=== PATIENT | female | born 1990 | race Hispanic/Latino ===

== ENCOUNTER 2021-12-20 22:39 | Emergency (ER) | payer OTHER, SELFPAY ==
[2021-12-20 23:47] LABS: Absolute Lymphocytes (CBC) 0.9 K/uL (0.7-4.9); Hematocrit 38.7 % (36.0-45.0); Lymphocytes % 12.6 % (15.3-44.8); MPV 8.7 fL (7.6-11.3); RBC Red Blood Cell Count 4.73 M/uL (3.86-4.86)
[2021-12-21 00:03] LABS: Albumin 3.6 g/dL (3.4-5.0); Bilirubin Total 0.6 mg/dL (0.2-1.0); Potassium 3.3 mmol/L (3.5-5.1); Protein, Total 8.2 g/dL (6.4-8.2)
[2021-12-21 00:04] LABS: Urine Blood 1+ (Negative); Urine Glucose Negative (Negative); Urine Protein 1+ (Negative); Urine Specific Gravity >=1.030 (1.005-1.030)
[2021-12-21] MEDS ORDERED: KETOROLAC 30 MG/ML INJ ONE (00:27)
[2021-12-21] MEDS ORDERED: FAMOTIDINE 20 MG/2 ML VIAL IV ONE (00:28)
[2021-12-21] MEDS ORDERED: NA CHLORIDE 0.9% 1,000 ML ONE (00:28)
[2021-12-21] MEDS ORDERED: ONDANSETRON 4 MG/2 ML VIAL ONE (00:28)
[2021-12-21 00:33] LABS: Urine Specific Gravity/Preg 1.025 (1.005-1.030)
--- NOTE | 2021-12-21 03:02 | EDPHYS ---
Physician Documentation [facility] Name: Deniz Rivers Age: 31 yrs Sex: Female : 1990 Arrival Date: 12/20/2021 Time: 22:42 Bed 19 Private MD: ED Physician Viet Robles HPI: 12/21 04:45 This 31 yrs old Female presents to ER via Ambulatory with complaints of kdr Abdominal Pain, Vomiting. 04:45 The patient presents to the emergency department with nausea, that is mild, vomiting, kdr that is intermittent, diarrhea, that is intermittent, abdominal pain, of the posterior aspect of right lateral abdomen, posterior aspect of left lateral abdomen, right lower quadrant and left lower quadrant. Onset: The symptoms/episode began/occurred 3 day(s) ago. Possible causes: unknown. Associated signs and symptoms: Pertinent positives: abdominal pain, diarrhea, nausea, vomiting. Severity of symptoms: At their worst the symptoms were mild moderate just prior to arrival, in the emergency department the symptoms are unchanged. The patient has not experienced similar symptoms in the past. The patient has not recently seen a physician. Patient states that she has been ill for the past couple of days with vomiting and diarrhea. She now feels that she is dehydrated.. 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 - Social history:: Smoking status: Patient denies any tobacco usage or history of. Patient/guardian denies using alcohol, street drugs. ROS: 12/21 04:47 Constitutional: Negative for fever, chills, and weight loss, Eyes: Negative for injury, kdr pain, redness, and discharge, ENT: Negative for injury, pain, and discharge, Neck: Negative for injury, pain, and swelling, Cardiovascular: Negative for chest pain, palpitations, and edema, Respiratory: Negative for shortness of breath, cough, wheezing, and pleuritic chest pain, Back: Negative for injury and pain, : Negative for injury, bleeding, discharge, and swelling, MS/Extremity: Negative for injury and deformity, Skin: Negative for injury, rash, and discoloration, Neuro: Negative for headache, weakness, numbness, tingling, and seizure activity. Psych: Negative for depression, anxiety, suicide ideation, homicidal ideation, and hallucinations, Allergy/Immunology: Negative for hives, rash, and allergies, Endocrine: Negative for neck swelling, polydipsia, polyuria, polyphagia, and marked weight changes, Hematologic/Lymphatic: Negative for swollen nodes, abnormal bleeding, and unusual bruising. Exam: 04:47 Constitutional: This is a well developed, well nourished patient who is awake, alert, kdr and in no acute distress. Head/Face: Normocephalic, atraumatic. Eyes: Pupils equal round and reactive to light, extra-ocular motions intact. Lids and lashes normal. Conjunctiva and sclera are non-icteric and not injected. Cornea within normal limits. Periorbital areas with no swelling, redness, or edema. Neck: Trachea midline, no thyromegaly or masses palpated, and no cervical lymphadenopathy. Supple, full range of motion without nuchal rigidity, or vertebral point tenderness. No Meningismus. Chest/axilla: Normal chest wall appearance and motion. Nontender with no deformity. No lesions are appreciated. Cardiovascular: Regular rate and rhythm with a normal S1 and S2. No gallops, murmurs, or rubs. Normal PMI, no JVD. No pulse deficits. Respiratory: Lungs have equal breath sounds bilaterally, clear to auscultation and percussion. No rales, rhonchi or wheezes noted. No increased work of breathing, no retractions or nasal flaring. Back: No spinal tenderness. No costovertebral tenderness. Full range of motion. Skin: Warm, dry with normal turgor. Normal color with no rashes, no lesions, and no evidence of cellulitis. MS/ Extremity: Pulses equal, no cyanosis. Neurovascular intact. Full, normal range of motion. Neuro: Awake and alert, GCS 15, oriented to person, place, time, and situation. Cranial nerves II-XII grossly intact. Motor strength 5/5 in all extremities. Sensory grossly intact. Cerebellar exam normal. Normal gait. Psych: Awake, alert, with orientation to person, place and time. Behavior, mood, and affect are within normal limits. 04:47 Abdomen/GI: Inspection: obese Bowel sounds: active, all quadrants, Palpation: mild abdominal tenderness. Vital Signs: 12/20 23:01 BP 131 / 75; Pulse 113; Resp 16; Temp 99.3(O); Pulse Ox 100% on R/A; Weight 86.18 kg jb4 (R); Height 5 ft. 3 in. (160.02 cm) (R); Pain 5/10; 12/21 01:21 BP 129 / 57; Pulse 82; Resp 16; Pulse Ox 99% on R/A; kd3 01:38 Pulse 82; Resp 16; Pulse Ox 100% on R/A; kd3 03:14 BP 128 / 65; Pulse 81; Resp 17; Pulse Ox 98% on R/A; kd3 12/20 23:01 Body Mass Index 33.66 (86.18 kg, 160.02 cm) jb4 MDM: 03:01 Patient medically screened. kdr 04:47 Data reviewed: vital signs, nurses notes, lab test result(s). Counseling: I had a kdr detailed discussion with the patient and/or guardian regarding: the historical points, exam findings, and any diagnostic results supporting the discharge/admit diagnosis, lab results, the need for outpatient follow up. 12/20 23:28 Order name: CBC with Diff; Complete Time: 00:15 kdr 12/20 23:28 Order name: CMP; Complete Time: 00:15 kdr 12/20 23:28 Order name: Lipase; Complete Time: 00:15 kdr 12/21 00:04 Order name: Urine Dipstick-Ancillary; Complete Time: 00:15 EDMS 12/21 00:06 Order name: Urine --Ancillary (enter results); Complete Time: 01:24 ds4 12/20 23:28 Order name: IV Saline Lock; Complete Time: 23:37 kdr 12/20 23:28 Order name: Labs collected and sent; Complete Time: 23:37 kdr 12/20 23:28 Order name: Urine Test (obtain specimen); Complete Time: 00:05 kdr 12/21 01:24 Order name: PO challenge; Complete Time: 01:49 kdr Administered Medications: 00:31 Drug: NS 0.9% 1000 ml Route: IV; Rate: 1 bolus; Site: left antecubital; kd3 00:31 Drug: Zofran (Ondansetron) 4 mg Route: IVP; Site: left antecubital; kd3 00:32 Drug: Pepcid (famotidine) 20 mg Route: IVP; Site: left antecubital; kd3 00:32 Drug: Ketorolac 30 mg Route: IVP; Site: left antecubital; kd3 03:15 CANCELLED (Physician Discretion): Acetaminophen 1000 mg PO once kd3 Disposition Summary: 12/21/21 03:01 Discharge Ordered Location: Home kdr Problem: new kdr Symptoms: have improved kdr Condition: Stable kdr Diagnosis - Abdominal pain, Generalized kdr - Nausea with vomiting, unspecified kdr Followup: kdr - With: Private Physician - When: 2 - 3 days - Reason: If symptoms return, Further diagnostic work-up, Recheck today's complaints, Continuance of care, Re-evaluation by your physician Discharge Instructions: - Discharge Summary Sheet kdr - Nausea and Vomiting, Adult, [id number] kdr - Abdominal Pain, Adult, [id number] kdr Forms: - Medication Reconciliation Form kdr - Thank You Letter kdr Prescriptions: - Pepcid 20 mg Oral Tablet - take 1 tablet by ORAL route every 12 hours for 5 days; 10 tablet; Refills: 0, kdr Product Selection Permitted - Zofran 4 mg Oral Tablet - take 1 tablet by ORAL route every 4-6 hours As needed; 20 tablet; Refills: 0, kdr Product Selection Permitted Signatures: Dispatcher [employer] EDAL Viet Robles MD MD kdr Bryson, James RN RN jb4 Miroslava Crane RN RN kd3 Corrections: (The following items were deleted from the chart) 03:15 03:05 Acetaminophen 1000 mg PO once ordered. kdr kd3 03:15 03:05 Accucheck ordered. kdr kd3 03:15 03:05 Cardiac monitoring ordered. kdr kd3 03:15 03:05 EKG - Nurse/Tech ordered. kdr kd3 03:15 03:05 IV Saline Lock - Large Bore ordered. kdr kd3 03:15 03:05 Oxygen Per Protocol ordered. kdr kd3 03:16 03:05 O2 Sat Monitoring ordered. kdr kd3 03:16 03:05 Urine Dipstick-Ancillary ordered. kdr kd3
--- NOTE | 2021-12-21 03:02 | ER ---
Nurse's Notes [facility] Name: Deniz Rivers Age: 31 yrs Sex: Female : 1990 Arrival Date: 12/20/2021 Time: 22:42 Bed 19 Private MD: Diagnosis: Abdominal pain, Generalized;Nausea with vomiting, unspecified Presentation: 12/20 23:01 Chief complaint: Patient states: For the past couple days I have had vomiting and jb4 diarrhea, now I feel dehydrated and weak so I wanted to come in and be evaluated. Coronavirus screen: At this time, the client does not indicate any symptoms associated with coronavirus-19. Ebola Screen: No symptoms or risks identified at this time. Initial Sepsis Screen: Does the patient meet any 2 criteria? HR > 90 bpm. Yes Does the patient have a suspected source of infection? No. Patient's initial sepsis screen is negative. Risk Assessment: Do you want to hurt yourself or someone else? Patient reports no desire to harm self or others. Onset of symptoms was December 17, 2021. Transition of care: patient was not received from another setting of care. 23:01 Method Of Arrival: Ambulatory jb4 23:01 Acuity: ANISHA 3 jb4 Triage Assessment: 12/21 00:47 General: Appears in no apparent distress. Behavior is calm, cooperative, appropriate kd3 for age. Neuro: Level of Consciousness is awake, alert, obeys commands, Oriented to person, place, time, situation. Cardiovascular: Patient's skin is warm and dry. Respiratory: Airway is patent Trachea midline Respiratory effort is even, unlabored, Respiratory pattern is regular, symmetrical. GI: Bowel sounds present X 4 quads. Reports diarrhea. 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 - Social history:: Smoking status: Patient denies any tobacco usage or history of. Patient/guardian denies using alcohol, street drugs. Screenin/15 00:47 Abuse screen: Denies threats or abuse. Denies injuries from another. Nutritional kd3 screening: No deficits noted. Tuberculosis screening: No symptoms or risk factors identified. Fall Risk IV access (20 points). Assessment: 12/20 23:41 Pain: Complains of pain in lower abdomen. Neuro: Level of Consciousness is awake, kd3 alert, obeys commands, Oriented to person, place, time, situation. Cardiovascular: Patient's skin is warm and dry. GI: Bowel sounds present X 4 quads. Abd is soft X 4 quads Reports diarrhea. 12/21 00:20 Reassessment: Patient and/or family updated on plan of care and expected duration. Pain kd3 level reassessed. Patient is alert, oriented x 3, equal unlabored respirations, skin warm/dry/pink. Patient states feeling better. 01:49 Reassessment: pt PO challenge complete. no N/V. kd3 Vital Signs: 12/20 23:01 BP 131 / 75; Pulse 113; Resp 16; Temp 99.3(O); Pulse Ox 100% on R/A; Weight 86.18 kg jb4 (R); Height 5 ft. 3 in. (160.02 cm) (R); Pain 5/10; 12/21 01:21 BP 129 / 57; Pulse 82; Resp 16; Pulse Ox 99% on R/A; kd3 01:38 Pulse 82; Resp 16; Pulse Ox 100% on R/A; kd3 03:14 BP 128 / 65; Pulse 81; Resp 17; Pulse Ox 98% on R/A; kd3 12/20 23:01 Body Mass Index 33.66 (86.18 kg, 160.02 cm) jb4 ED Course: 12/20 22:42 Patient arrived in ED. kz 23:04 Triage completed. jb4 23:04 Arm band placed on right wrist. jb4 23:28 Viet Robles MD is Attending Physician. kdr 23:36 Miroslava Crane RN is Primary Nurse. kd3 23:42 Inserted saline lock: 20 gauge in left antecubital area, using aseptic technique. kd3 12/21 00:48 Patient has correct armband on for positive identification. Bed in low position. Call kd3 light in reach. Side rails up X 1. 03:14 No provider procedures requiring assistance completed. IV discontinued, intact, kd3 bleeding controlled, No redness/swelling at site. Pressure dressing applied. Administered Medications: 00:31 Drug: NS 0.9% 1000 ml Route: IV; Rate: 1 bolus; Site: left antecubital; kd3 00:31 Drug: Zofran (Ondansetron) 4 mg Route: IVP; Site: left antecubital; kd3 00:32 Drug: Pepcid (famotidine) 20 mg Route: IVP; Site: left antecubital; kd3 00:32 Drug: Ketorolac 30 mg Route: IVP; Site: left antecubital; kd3 03:15 CANCELLED (Physician Discretion): Acetaminophen 1000 mg PO once kd3 Outcome: 03:01 Discharge ordered by . kdr 03:14 Discharged to home ambulatory. kd3 03:14 Condition: stable 03:14 Discharge instructions given to patient, Instructed on discharge instructions, follow up and referral plans. medication usage, Demonstrated understanding of instructions, follow-up care, medications, Prescriptions given X 2. 03:17 Patient left the ED. kd3 Signatures: Viet Robles MD MD kdr Janes Centeno, RN RN jb4 Miroslava Carne, DESMOND RN kd3 Joanne Messina
[2021-12-21 11:18] VITALS: TEMP 99.3
[2021-12-21 11:23] VITALS: BP 128/65; O2SAT 98
== END 2021-12-21 03:17 | disposition home or self-care (01) ==
LOC: ER 22:39
DX: R10.84 Generalized abdominal pain (principal); R11.2 Nausea with vomiting, unspecified
CPT/HCPCS: 36415; 80053; 81003; 81025; 83690; 85025; 96374; 96375; 99283; J2405; J7030

== ENCOUNTER 2022-08-06 08:19 | Emergency (ER) | payer SELFPAY ==
--- OUTSIDE RECORDS SUMMARY | 2022-08-06 08:23 | XMS REPORT | Continuity of Care Document ---
:1990 Author Organization [facility] t Address [address] [place] [address] [address] [place] [address] Care Team Providers Name Role Phone Unavailable Unavailable Unavailable Problems This patient has no known problems. Allergies, Adverse Reactions, Alerts This patient has no known allergies or adverse reactions. Medications This patient has no known medications. Procedures This patient has no known procedures. Encounters Start End Encounter Admission Attending Care Care Encounter Source Date/Time Date/Time Type Type Clinicians Facility Department ID 2022-07-18 2022-07-18 Outpatient [facility] [id number] Emil 08:51:37 08:51:37 [address] [place] Results Test Description Test Time Test Comments Results Result Comments Source TSH, THIRD GENERATION 2022-04-05 09:45:16 Test Item Value Reference Range Interpretation Comme nts TSH, THIRD GENERATION (test 2.180 UIU/ML 0.400-4.100 UNLESS OTHERWISE INDICATED, code = 2821) ALL TESTING PER FORMED ATCLINICAL PATH [facility] [place] [id number] CYBERATHLETE: Gurmeet GARCIA [id number] [place]. [id number] HEMOGLOBIN [id number] 08:28:05 Test Item Value Reference Range Interpretation Comments HEMOGLOBIN A1c (test code = 60097) 5.7 % 4.2-5.6 H CBC W/AUTO DIFF WITH [id number] 07:50:55 Test Item Value Reference Range Interpretation Comments WBC (test code = 7.4 K/UL 3.5-11.0 1001) RBC (test code = 4.77 M/UL 3.80-5.40 1002) HEMOGLOBIN (test code 13.4 G/DL 11.5-15.5 = 1003) HEMATOCRIT (test code 40.3 % 34.0-45.0 = 1004) MCV (test code = 84.5 fL 80.0-99.0 1005) MCH (test code = 28.1 PG 25.0-33.0 1006) MCHC (test code = 33.3 G/DL 31.0-36.0 1007) RDW (test code = 14.3 % 11.5-15.0 1038) NEUTROPHILS (test 54.0 % code = 1008) LYMPHOCYTES (test 35.2 % code = 1010) MONOCYTES (test code 5.1 % = 1011) EOSINOPHILS (test 4.6 % code = 1012) BASOPHILS (test code 0.8 % = 1013) IMMATURE GRANULOCYTES 0.3 % (test code = 1036) NUCLEATED RBCS (test 0.0 /100 WBC'S See_Comment [Aut omated code = 1065) message] The sy stem which generated this result transmitted reference range : 0.0. The refere nce range was not u sed to interpret th is result as normal/abnormal . PLATELET COUNT (test 345 K/UL 130-400 code = 1015) ABSOLUTE NEUTROPHILS 4.01 K/UL 1.50-7.50 (test code = 1066) ABSOLUTE LYMPHOCYTES 2.61 K/UL 1.00-4.00 (test code = 1067) ABSOLUTE MONOCYTES 0.38 K/UL 0.20-1.00 (test code = 1068) ABSOLUTE EOSINOPHILS 0.34 K/UL 0.00-0.50 (test code = 1040) ABSOLUTE BASOPHILS 0.06 K/UL 0.00-0.20 (test code = 1069) ABS IMMATURE 0.02 K/UL 0.00-0.10 GRANULOCYTES (test code = 1020) ABS NUCLEATED RBCS 0.00 K/UL 0.00-0.11 (test code = 32702) COMPREHENSIVE METABOLIC [id number] 05:42:59 Test Item Value Reference Range Interpretation Comments GLUCOSE (test code = 68 MG/DL 70-99 L 2216) BUN (test code = 9 MG/DL 6-20 2207) CREATININE (test 0.81 MG/DL 0.60-1.30 code = 2214) eGFR (2020 CKD-EPI) 99 ML/MIN/1.73 >60 (test code = 02355) CALC BUN/CREAT (test 11 RATIO 6-28 code = 2235) SODIUM (test code = 143 MEQ/L 917-741 5088) POTASSIUM (test code 4.2 MEQ/L 3.5-5.4 = 2227) CHLORIDE (test code 103 MEQ/L 95-107 = 2214) CARBON DIOXIDE (test 24 MEQ/L 19-31 code = 220) CALCIUM (test code = 9.3 MG/DL 8.5-10.5 2208) PROTEIN, TOTAL (test 8.2 G/DL 6.1-8.3 code = 222) ALBUMIN (test code = 4.6 G/DL 3.5-5.2 2200) CALC GLOBULIN (test 3.6 G/DL 1.9-3.7 code = 224) CALC A/G RATIO (test 1.3 RATIO 1.0-2.6 code = 2233) BILIRUBIN, TOTAL 0.4 MG/DL See_Comment [Automated message] (test code = 2206) The syste m which generated this result transmit doroteo reference range : <=1.2. The refe rence range was not u sed to interpret th is result as normal/abnormal . ALKALINE PHOSPHATASE 154 U/L 40-114 H (test code = 2203) AST (test code = 18 U/L 9-40 2217) ALT (test code = 16 U/L 5-40 2218) LIPID [id number] 05:42:59 Test Item Value Reference Range Interpretation Comments CHOLESTEROL (test 180 MG/DL <200 code = 2210) TRIGLYCERIDES (test 117 MG/DL <150 code = 2232) HDL CHOLESTEROL (test 44 MG/DL >39 code = 2220) CALC LDL CHOL (test 114 MG/DL <100 H NOTE: C ALCULATED LDL code = 2237) IS BASED ON ARLYN-GARG METHOD WHICHINCLUDES ADJUSTABLE TRIGLYCERIDE:VL DL CHOLESTEROL RAT IO.THIS FACTOR VARIES B Y MEASURED TRIGLY CERIDE AND NON-HDLCHOL ESTEROL CONCENTRATIONS WITH INCREASED CALCU LATED LDL SEENIN HIGH ER TRIGLYCERIDE OR LOWER NON-HDL SPECIME NS. FOR MOREINFORMATION , SEE CLIENT ANNOUNCE MENT AT [email or web address] RISK RATIO LDL/HDL 2.59 RATIO <3.22 (test code = 223) PAP TEST, THINPREP, [id number] 17:32:45 Test Item Value Reference Range Interpretation Comments SOURCE: (test code = Cervical/Endo 8001) cervical SLIDES: (test code = 1 8011) LMP: (test code = 03/05/2022 8021) SPECIMEN ADEQUACY: (NOTE) Satisfac tory for (test code = 62798) evaluati on. Endocervical cells/transform ation zone component present. INTERPRETATION: LSIL/EPITH. A (test code = 18983) ABNORMALITY; -------- SEE BELOW ------- ---- EPITHE LIAL CELL ABNORMALIT Y Low Grade Squam ous Intraepithelial Lesion (LSIL) ------- ------- ------- ---- CLIENT RETENTION SPECIALIST: Emil (test code = 8101) KATHRYN Vilchis(ASC P)[facility] PATHOLOGIST Dariusz London INTERPRETATION BY: (test code = 8122) LOCATION: (test code (NOTE) Specime ns processed at = 21388) [facility], [address] [facility] [place] [address], Phone: , CLIA: [id number] interpreted at [facility], [address] [place],Pathology Department [facility], [place] Set on [facility], [place] [address], Phone: , CLIA: [id number] CPT: (test code = (NOTE) 52173, 881 41 UNLESS 8140) OTHERWISE INDIC ATED, COMPUTER AIDED AND CYTOTECHNOLOGIS T SCREENING PERFO RMED. The Pap test is a screening test with an inherent, but l ow probability of error. Your patient sh ould be reminded to con sult you immediately if she experiences any suspicious sign s or symptoms, regar dless of her Pap test result. An alte rnate report format containing imag es or consolidated pr ior Pap history is avai lable as applicable. HPV HIGH RISK WITH GENOTYPE, [id number] 18:42:54 Test Item Value Reference Range Interpretation Comments HPV HIGH RISK INTERP POSITIVE NEGATIVE A (test code = 82977) HPV 16 (test code = POSITIVE A 01409) HPV 18 (test code = NEGATIVE 61165) HPV, HR, OTHER NEGATIVE Testing meth odology is GENOTYPES (test code real-ti me PCR utilizing = 99291) hydrolysis prob es with the [employer] 4800 system. The héctor t individually de tects genotypes 16 an d 18, as well as the oth er 12 high risk types (31,33,35,39,45 ,51,52,56 ,58,59,66,68). The expected result is negative. A neg ative result does not rule out the presence of HPV not included in the genotype set, a low leve l of infection or sp ecimen sampling error. UNLESS OTHERWISE INDIC ATED, ALL TESTING PERFORM ED ATCLINICAL PATH [facility]LOG[facility] LAB[facility]ATORIES, I [place]. [address] [place] [address] LABORATORY DIRE CTOR: BAKARI SANTILLAN M.D. PABLOIA NUMBER [id number] [place] [id number]
[2022-08-06] MEDS ORDERED: ONDANSETRON 4 MG/2 ML VIAL ONE (08:40)
[2022-08-06] MEDS ORDERED: Ringers Lactate 1,000 ML IV ONE (08:40)
[2022-08-06] MEDS ORDERED: D5 0.9 NS 1,000 ML IV ONE (08:40)
[2022-08-06 08:45] LABS: Urine Blood 1+ (Negative); Urine Glucose Negative (Negative); Urine Protein 1+ (Negative); Urine Specific Gravity >=1.030 (1.005-1.030)
[2022-08-06 08:51] LABS: Hematocrit 40.1 % (36.0-45.0); Lymphocytes % 32.2 % (15.3-44.8); MCV 84.5 fL (80-100); MPV 8.9 fL (7.6-11.3); RBC Red Blood Cell Count 4.74 M/uL (3.86-4.86)
[2022-08-06 08:54] LABS: Specific Gravity 1.029 (1.005-1.030); Urine Bacteria <20 /HPF (<20); Urine Bilirubin NEGATIVE (Negative); Urine Blood 1+ (Negative); Urine Clarity Turbid (Clear); Urine Color Yellow (Yellow); Urine Glucose NEGATIVE (Negative); Urine Mucus 2+ /HPF (None Seen); Urine Protein 1+ (Negative); Urine Urobilinogen 1+ (Normal); Urine pH 5.5 (5.0-7.0)
[2022-08-06 08:59] LABS: Urine Specific Gravity/Preg >1.030 (1.005-1.030)
[2022-08-06 09:11] LABS: Albumin 3.7 g/dL (3.4-5.0); Bilirubin Total 0.7 mg/dL (0.2-1.0); Potassium 3.6 mmol/L (3.5-5.1); Protein, Total 8.3 g/dL (6.4-8.2)
--- NOTE | 2022-08-06 10:18 | EDPHYS ---
Physician Documentation [facility] Name: Deniz Rivers Age: 31 yrs Sex: Female : 1990 Arrival Date: 08/06/2022 Time: 08:23 Bed 5 Private MD: ED Physician Rich Benites HPI: 08/06 08:34 This 31 yrs old Female presents to ER via Ambulatory with complaints of jr11 Vomiting. 08:34 The patient presents to the emergency department with nausea, that is moderate, jr11 vomiting, that is intermittent, described as NBNB. Onset: The symptoms/episode began/occurred 3 week(s) ago. Possible causes: , at 7 weeks per patient, LMP 06-20-22. The symptoms are aggravated by nothing. The symptoms are alleviated by nothing. Associated signs and symptoms: Pertinent negatives: abdominal pain, constipation, diarrhea, GI bleeding, vaginal discharge. Severity of symptoms: At their worst the symptoms were moderate in the emergency department the symptoms are worse. Denies pain, taking PNV but not eating or drinking as much last 3 days. Pt with h/o the same with previous . . Pt w h/o pre-eclampsia . 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 - Social history:: Smoking status: Patient denies any tobacco usage or history of. ROS: 10:10 All other systems are negative. jr11 Exam: 10:10 Constitutional: This is a well developed, well nourished patient who is awake, alert, jr11 and in no acute distress. Head/Face: Normocephalic, atraumatic. Eyes: Extra-ocular motions intact. Lids and lashes normal. Conjunctiva and sclera are non-icteric and not injected. Cornea within normal limits. Periorbital areas with no swelling, redness, or edema. ENT: Nares patent. No nasal discharge, no septal abnormalities noted. Oropharynx with no redness, swelling, or masses, exudates, or evidence of obstruction, uvula midline. Mucous membranes moist. Neck: Trachea midline, no thyromegaly or masses palpated, and no cervical lymphadenopathy. Supple, full range of motion without nuchal rigidity, or vertebral point tenderness. No Meningismus. Chest/axilla: Normal chest wall appearance and motion. Nontender with no deformity. No lesions are appreciated. Cardiovascular: Regular rate and rhythm with a normal S1 and S2. No gallops, murmurs, or rubs. Normal PMI, no JVD. No pulse deficits. Respiratory: Lungs have equal breath sounds bilaterally, clear to auscultation and percussion. No rales, rhonchi or wheezes noted. No increased work of breathing, no retractions or nasal flaring. Back: No spinal tenderness. No costovertebral tenderness. Full range of motion. Skin: Warm, dry with normal turgor. Normal color with no rashes, no lesions, and no evidence of cellulitis. MS/ Extremity: Pulses equal, no cyanosis. Neurovascular intact. Full, normal range of motion. Vital Signs: 08:27 BP 139 / 79; Pulse 80; Resp 16; Temp 99.3; Pulse Ox 100% ; Weight 81.65 kg; Height 5 vg1 ft. 3 in. (160.02 cm); Pain 0/10; 08:54 BP 112 / 57; Pulse 67; Resp 16; Pulse Ox 100% on R/A; Pain 0/10; mb9 09:40 BP 104 / 52; Pulse 72; Resp 18; Pulse Ox 100% on R/A; Pain 0/10; mb9 10:23 BP 87 / 71; Pulse 71; Resp 16; Pulse Ox 100% on R/A; mb9 08:27 Body Mass Index 31.89 (81.65 kg, 160.02 cm) vg1 MDM: 08:32 Patient medically screened. [facility] 10:10 Differential diagnosis: viral gastroenteritis, gastroenteritis, nausea, hyper emesis. [facility] Data reviewed: vital signs, nurses notes. 10:15 ED course: Pt feeling better tolerating po, no questions. Pt has f/u appointment with [facility] 1 week.. 08/06 08:34 Order name: CBC with Diff; Complete Time: 09:10 [facility] 08/06 08:34 Order name: CMP; Complete Time: 09:26 [facility] 08/06 08:34 Order name: Urine Microscopic Only [facility] 08/06 08:34 Order name: UA; Complete Time: 09:10 [facility] 08/06 08:34 Order name: HCG-Quantitative; Complete Time: 09: [facility] 08/06 08:45 Order name: Urine Dipstick-Ancillary; Complete Time: 09:10 [facility] 08/06 08:34 Order name: IV Saline Lock; Complete Time: 08:50 [facility] 08/06 08:34 Order name: Labs collected and sent; Complete Time: 08:50 [facility] 08/06 08:49 Order name: Urine --Ancillary (enter results); Complete Time: 09: bd 08/06 09:03 Order name: Urine Culture [facility] 08/06 09:49 Order name: PO challenge [facility] Administered Medications: 08:51 Drug: Zofran (Ondansetron) 4 mg Route: IVP; Site: right antecubital; mb9 08:51 Drug: D5-NS 1000 ml Route: IV; Rate: bolus; Site: right antecubital; mb9 08:51 Drug: Lactated Ringers Solution 1000 ml Route: IV; Rate: 999 bolus; Site: right mb9 antecubital; Disposition Summary: 08/06/22 10:17 Discharge Ordered Location: Home [facility] Condition: Stable [facility] Diagnosis - Nausea with vomiting, unspecified jr11 - Encounter for test, result positive jr11 - Encounter for supervision of normal first , first trimester jr Discharge Instructions: - Discharge Summary Sheet jr11 - First Trimester of , Akfm-cr-Esps [facility] - Nausea and Vomiting, Adult, Bmgx-pm-Hwfz [facility] Forms: - Medication Reconciliation Form jr11 - Work release form ss - Thank You Letter jr11 - Antibiotic Education jr11 - Prescription Opioid Use jr11 Prescriptions: - Zofran 4 mg Oral Tablet - take 1 tablet by ORAL route every 12 hours As needed; 6 tablet; Refills: 0, jr11 Product Selection Permitted Signatures: Dispatcher [employer] Olive Mcgee, RN RN vg1 Rich Benites MD MD jr11 Kanika, Sandra Cordova RN RN mb9
--- NOTE | 2022-08-06 10:18 | ER ---
Nurse's Notes [facility] Name: Deniz Rivers Age: 31 yrs Sex: Female : 1990 Arrival Date: 08/06/2022 Time: 08:23 Bed 5 Private MD: Diagnosis: Nausea with vomiting, unspecified;Encounter for test, result positive;Encounter for supervision of normal first , first trimester Presentation: 08/06 08:27 Chief complaint: Patient states: approximately 7 weeks , has been vomiting x 3 vg1 weeks, has not been able to set up an appt with an OB, states recently has not been able to tolerate food/fluids. Coronavirus screen: Vaccine status: Patient reports receiving the 2nd dose of the covid vaccine. Client denies travel out of the [place] in the last 14 days. Ebola Screen: Patient negative for fever greater than or equal to 101.5 degrees Fahrenheit, and additional compatible Ebola Virus Disease symptoms. Initial Sepsis Screen: Does the patient meet any 2 criteria? No. Patient's initial sepsis screen is negative. Does the patient have a suspected source of infection? No. Patient's initial sepsis screen is negative. Risk Assessment: Do you want to hurt yourself or someone else? Patient reports no desire to harm self or others. Onset of symptoms was August 05, 2022. 08:27 Method Of Arrival: Ambulatory vg1 08:27 Acuity: ANISHA 3 vg1 Triage Assessment: 08:33 General: Appears in no apparent distress. comfortable, Behavior is calm, cooperative. vg1 Pain: Denies pain. GI: Reports nausea, vomiting. 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 - Social history:: Smoking status: Patient denies any tobacco usage or history of. Screenin:54 Abuse screen: Denies threats or abuse. Nutritional screening: No deficits noted. mb9 Tuberculosis screening: No symptoms or risk factors identified. Fall Risk None identified. Assessment: 08:52 General: Appears in no apparent distress. comfortable, Behavior is calm, cooperative, mb9 appropriate for age. Pain: Denies pain. Neuro: Trevino Agitation-Sedation Scale (RASS): 0 - Alert and Calm Level of Consciousness is awake, alert, obeys commands, Oriented to person, place, time, situation, Appropriate for age. Neuro: Reports headache and dizziness when standing up and moving around. Cardiovascular: Heart tones S1 S2 present Rhythm is regular. Respiratory: Airway is patent Respiratory effort is even, unlabored, Respiratory pattern is regular, symmetrical, Breath sounds are clear bilaterally. GI: Abdomen is flat, Bowel sounds present X 4 quads. Abd is soft and non tender X 4 quads. Reports intolerance of fluids, intolerance of food, nausea, since three days ago. EENT: No signs and/or symptoms were reported regarding the EENT system. Derm: Skin is pink, warm \T\ dry. Musculoskeletal: Range of motion: intact in all extremities. 08:52 : Urine is cloudy. mb9 09:15 Reassessment: pt states her nausea is gone and she feels better. Pt denies pain. mb9 10:21 Pain: Denies pain. Neuro: Level of Consciousness is awake, alert, obeys commands, mb9 Oriented to person, place, time, situation, Appropriate for age. Cardiovascular: Heart tones S1 S2 present Rhythm is regular. Respiratory: Airway is patent Respiratory effort is even, unlabored, Respiratory pattern is regular, symmetrical. GI: Patient currently denies nausea. Derm: Skin is pink, warm \T\ dry. Vital Signs: 08:27 BP 139 / 79; Pulse 80; Resp 16; Temp 99.3; Pulse Ox 100% ; Weight 81.65 kg; Height 5 vg1 ft. 3 in. (160.02 cm); Pain 0/10; 08:54 BP 112 / 57; Pulse 67; Resp 16; Pulse Ox 100% on R/A; Pain 0/10; mb9 09:40 BP 104 / 52; Pulse 72; Resp 18; Pulse Ox 100% on R/A; Pain 0/10; mb9 10:23 BP 87 / 71; Pulse 71; Resp 16; Pulse Ox 100% on R/A; mb9 08:27 Body Mass Index 31.89 (81.65 kg, 160.02 cm) 1 ED Course: 08:23 Patient arrived in ED. rg4 08:25 Rich Benites MD is Attending Physician. jr11 08:33 Triage completed. vg1 08:33 Arm band placed on. vg1 08:35 Sandra Boudreaux, RN is Primary Nurse. mb9 08:35 Placed in gown. Bed in low position. Call light in reach. Side rails up X 1. mb9 08:35 Client placed on continuous cardiac and pulse oximetry monitoring. NIBP monitoring mb9 applied. 08:51 HCG-Quantitative Sent. mb9 08:51 CBC with Diff Sent. mb9 08:51 UA Sent. mb9 08:51 CMP Sent. mb9 08:51 Urine Microscopic Only Sent. mb9 10:32 No provider procedures requiring assistance completed. IV discontinued, intact, mb9 bleeding controlled, No redness/swelling at site. Pressure dressing applied. Administered Medications: 08:51 Drug: Zofran (Ondansetron) 4 mg Route: IVP; Site: right antecubital; mb9 08:51 Drug: D5-NS 1000 ml Route: IV; Rate: bolus; Site: right antecubital; mb9 08:51 Drug: Lactated Ringers Solution 1000 ml Route: IV; Rate: 999 bolus; Site: right mb9 antecubital; Medication: 08:54 VIS not applicable for this client. mb9 Outcome: 10:17 Discharge ordered by . jr11 10:32 Discharged to home ambulatory. mb9 10:32 Condition: stable 10:32 Discharge instructions given to patient, Instructed on discharge instructions, follow up and referral plans. Demonstrated understanding of instructions, follow-up care, medications, Prescriptions given X 1. 10:32 Patient left the ED. mb9 Signatures: Thi Archuleta rg4 Olive Archuleta RN RN vg1 Rich Benites MD MD jr11 Sandra Boudreaux, RN RN mb9 Corrections: (The following items were deleted from the chart) 09:03 08:52 : Urine is clear, mb9 mb9
[2022-08-06 10:41] VITALS: TEMP 99.3; O2SAT 100
[2022-08-06 10:45] VITALS: BP 87/71
== END 2022-08-06 10:32 | disposition home or self-care (01) ==
LOC: ER 08:19
DX: Z32.01 Encounter for pregnancy test, result positive (principal); R11.2 Nausea with vomiting, unspecified
CPT/HCPCS: 36415; 80053; 81001; 81003; 81015; 81025; 84702; 85025; 87086; 87088; 96374; 99283; J2405; J7042; J7120

== ENCOUNTER 2022-08-21 08:15 | Emergency (ER) | payer OTHER ==
--- OUTSIDE RECORDS SUMMARY | 2022-08-21 08:18 | XMS REPORT | Continuity of Care Document ---
:1990 Author Organization [facility] t Address [address] [place] [address] [address] [place] [address] Care Team Providers Name Role Phone Unavailable [...] Clinicians Facility Department ID 2022-07-18 2022-07-18 Outpatient [facility] [id number] Emil 08:51:37 08:51:37 [address] [place] Results Test Description Test Time Test Comments Results Result Comments Source TSH, THIRD GENERATION 2022-04-05 09:45:16 Test Item Value Reference Range Interpretation Comme nts TSH, THIRD GENERATION (test 2.180 UIU/ML 0.400-4.100 UNLESS OTHERWISE INDICATED, code = 2821) ALL TESTING PER FORMED [facility] PATH [facility] [place] [address] [address] LEASE OUT MAN: Gurmeet GARCIA [id number] [place] [id number] HEMOGLOBIN [id number] 08:28:05 Test Item Value Reference Range Interpretation Comments HEMOGLOBIN A1c (test code = 62638) 5.7 % 4.2-5.6 H CBC W/AUTO DIFF WITH [id number] 07:50:55 Test Item Value Reference Range Interpretation [...] RBCS 0.00 K/UL 0.00-0.11 (test code = 47395) COMPREHENSIVE METABOLIC [id number] 05:42:59 Test Item Value Reference Range Interpretation Comments GLUCOSE (test code = 68 MG/DL 70-99 L 2216) BUN (test code = 9 MG/DL 6-20 2207) CREATININE (test 0.81 MG/DL 0.60-1.30 code = 2214) eGFR (2020 CKD-EPI) 99 ML/MIN/1.73 >60 (test code = 17694) CALC BUN/CREAT (test 11 RATIO 6-28 code = 2235) SODIUM (test code = 143 MEQ/L 937-228 2315) POTASSIUM (test code 4.2 MEQ/L 3.5-5.4 = [...] code = 16 U/L 5-40 2218) LIPID [id number] 05:42:59 Test Item Value Reference Range Interpretation [...] MOREINFORMATION , SEE CLIENT ANNOUNCE MENT AT [email or web address] RISK RATIO LDL/HDL 2.59 RATIO <3.22 (test code = 223) PAP TEST, THINPREP, [id number] 17:32:45 Test Item Value Reference Range Interpretation Comments SOURCE: (test code = Cervical/Endo 8001) cervical SLIDES: (test code = 1 8011) LMP: (test code = 03/05/2022 8021) SPECIMEN ADEQUACY: (NOTE) Satisfac tory for (test code = 52291) evaluati on. Endocervical cells/transform ation zone component present. INTERPRETATION: LSIL/EPITH. A (test code = 01988) ABNORMALITY; -------- SEE BELOW ------- ---- EPITHE LIAL CELL ABNORMALIT Y Low Grade Squam ous Intraepithelial Lesion (LSIL) ------- ------- ------- ---- ASSEMBLER BODY: Emil (test code = 8101) KATHRYN Vilchis(ASC P)[facility] PATHOLOGIST Dariusz London INTERPRETATION BY: (test code = 8122) LOCATION: (test code (NOTE) Specime ns processed at = [address]) [facility], [address] [facility] [place] [address], Phone: , CLIA: [id number] interpreted at [facility], [address] [place],Pathology Department [facility], [place] Set on [facility], [place] [address], Phone: , CLIA: [id number] CPT: (test code = (NOTE) 36758, 881 41 UNLESS 8140) OTHERWISE INDIC ATED, [...] as applicable. HPV HIGH RISK WITH GENOTYPE, [id number] 18:42:54 Test Item Value Reference Range Interpretation Comments HPV HIGH RISK INTERP POSITIVE NEGATIVE A (test code = 71564) HPV 16 (test code = POSITIVE A 69650) HPV 18 (test code = NEGATIVE 44053) HPV, HR, OTHER NEGATIVE Testing meth odology is GENOTYPES (test code real-ti me PCR utilizing = 91735) hydrolysis prob es with the natue Anjelica 4800 system. The héctor t individually [...] ED ATCLINICAL [facility], [place]. [address] [place] [address] LABORATORY DIRE CTOR: BAKARI SANTILLAN M.D. PABLOIA NUMBER [id number] [facility] [place] [id number]
[2022-08-21] MEDS ORDERED: PROMETHAZINE 25 MG TABLET ONE (08:28)
[2022-08-21 09:20] LABS: SARS-COV-2 RT PCR NEGATIVE (NEGATIVE)
--- NOTE | 2022-08-21 09:43 | EDPHYS ---
Physician Documentation [facility] Name: Deniz Rivers Age: 31 yrs Sex: Female : 1990 Arrival Date: 08/21/2022 Time: 08:18 Bed DIS3 Private MD: Octaviano Christianson B ED Physician Jl Deluca HPI: 08/21 09:39 This 31 yrs old Female presents to ER via Ambulatory with complaints of Cough, jmm Congestion, 9 wks preg. 09:39 The patient or guardian reports cough. Onset: The symptoms/episode began/occurred jmm gradually, 3 day(s) ago. This is a 31 year old female currently 9 weeks that presents to the ED with complaints of cough, congestion, vomiting beginning 3 days ago. Denies any vaginal bleeding. States her nausea medication is not helping. . 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 - Social history:: Smoking status: Patient denies any tobacco usage or history of. ROS: 09:39 Constitutional: Positive for body aches. jmm 09:39 Respiratory: Positive for cough. 09:39 Abdomen/GI: Positive for vomiting. 09:39 All other systems are negative. Exam: 09:39 Constitutional: This is a well developed, well nourished patient who is awake, alert, jmm and in no acute distress. Head/Face: atraumatic. Eyes: EOMI, no conjunctival erythema appreciated ENT: Moist Mucus Membranes Neck: Trachea midline, Supple Chest/axilla: Normal chest wall appearance and motion. Cardiovascular: Regular rate and rhythm. No edema appreciated Respiratory: Normal respirations, no respiratory distress appreciated Abdomen/GI: Non distended Back: Normal ROM Skin: General appearance color normal MS/ Extremity: Moves all extremities, no obvious deformities appreciated, no edema noted to the lower extremities Neuro: Awake and alert Psych: Behavior is normal, Mood is normal, Patient is cooperative and pleasant Vital Signs: 08:21 BP 139 / 85; Pulse 83; Resp 15; Pulse Ox 100% on R/A; ss 08:24 Temp 98.9(O); ss MDM: 08:26 Patient medically screened. [facility] 09:39 Data reviewed: vital signs, nurses notes. Counseling: I had a detailed discussion with farhana the patient and/or guardian regarding: the historical points, exam findings, and any diagnostic results supporting the discharge/admit diagnosis, lab results, the need for outpatient follow up, to return to the emergency department if symptoms worsen or persist or if there are any questions or concerns that arise at home. ED course: Patient is alert and non toxic in appearance in the ED. No signs of resp distress. patient is advised to follow up with obgyn for further evaluation. Patient understood and agrees with the plan of care. . 08/21 08:19 Order name: COVID-19/FLU A+B; Complete Time: 09:22 [facility] 08/21 08:19 Order name: Strep; Complete Time: 09:00 [facility] 08/21 08:52 Order name: Throat Culture EDMS Administered Medications: 08:30 Drug: Promethazine 25 mg Route: PO; ss 09:52 Follow up: Response: Nausea unchanged ss Disposition Summary: 08/21/22 09:42 Discharge Ordered Location: Home [facility] Condition: Stable [facility] Diagnosis - Acute upper respiratory infection, unspecified [facility] Followup: [facility] - With: Octaviano Christianson MD - When: 1 - 2 days - Reason: Recheck today's complaints, Continuance of care, Re-evaluation by your physician Discharge Instructions: - Discharge Summary Sheet [facility] - Upper Respiratory Infection, Adult [facility] Forms: - Medication Reconciliation Form [facility] - Thank You Letter [facility] - Antibiotic Education [facility] - Prescription Opioid Use [facility] - Work release form Prescriptions: - promethazine-DM - take 10 milliliter by ORAL route every 6 hours As needed; 200 milliliter; [facility] Refills: 0, Product Selection Permitted Signatures: Dispatcher [employer] EDMS Steve Jones PA PA jmm Smirch, Shelby, RN RN ss
--- NOTE | 2022-08-21 09:43 | ER ---
Nurse's Notes [facility] Name: Deniz Rivers Age: 31 yrs Sex: Female : 1990 Arrival Date: 08/21/2022 Time: 08:18 Bed DIS3 Private MD: Octaviano Christianson B Diagnosis: Acute upper respiratory infection, unspecified Presentation: 08/21 08:21 Chief complaint: Patient states: "I thought I had a cold that started two days ago." Pt ss c/o sneezing, coughing. Denies fever. Coronavirus screen: Client denies travel out of the [place] in the last 14 days. Ebola Screen: Patient denies exposure to infectious person. Patient denies travel to an Ebola-affected area in the 21 days before illness onset. Initial Sepsis Screen: Does the patient meet any 2 criteria? No. Patient's initial sepsis screen is negative. Does the patient have a suspected source of infection? No. Patient's initial sepsis screen is negative. Risk Assessment: Do you want to hurt yourself or someone else? Patient reports no desire to harm self or others. Onset of symptoms was August 19, 2022. 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 - Social history:: Smoking status: Patient denies any tobacco usage or history of. Screenin:37 [facility] ED Fall Risk Assessment (Adult) History of falling in the last 3 months, ss including since admission No falls in past 3 months (0 pts) Confusion or Disorientation No (0 pts) Intoxicated or Sedated No (0 pts) Impaired Gait No (0 pts) Mobility Assist Device Used No (0 pt) Altered Elimination No (0 pt) Score/Fall Risk Level 0 - 2 = Low Risk. Abuse screen: Denies threats or abuse. Denies injuries from another. Nutritional screening: On no prescribed diet. Tuberculosis screening: Never had TB. Assessment: 08:37 General: Appears in no apparent distress. comfortable. Neuro: Level of Consciousness is ss awake, alert, obeys commands, Oriented to person, place, time, situation. Cardiovascular: Capillary refill < 3 seconds is brisk in bilateral fingers Patient's skin is warm and dry. Respiratory: Airway is patent Respiratory effort is even, unlabored, Respiratory pattern is regular, symmetrical. Respiratory: Denies shortness of breath. Respiratory: Reports cough that is non-productive. GI: Reports ongoing nausea x weeks. Pt states, "Dr. Christianson gave me Zofran, but it's not working anymore.". : No signs and/or symptoms were reported regarding the genitourinary system. Derm: Skin is pink, warm \\T\\ dry. normal. Musculoskeletal: Circulation, motion, and sensation intact. Range of motion: intact in all extremities. Vital Signs: 08:21 BP 139 / 85; Pulse 83; Resp 15; Pulse Ox 100% on R/A; ss 08:24 Temp 98.9(O); ss ED Course: 08:18 Patient arrived in ED. as 08:18 Octaviano Christianson MD is Private Physician. as 08:19 Steve Jones PA is [facility] 08:19 Jl Deluca MD is Attending Physician. [facility] 08:23 Triage completed. ss 08:23 Arm band placed on right wrist. ss 08:31 Strep Sent. ss 08:31 COVID-19/FLU A+B Sent. ss 08:37 Patient has correct armband on for positive identification. ss 09:42 Octaviano Christianson MD is Referral Physician. [facility] 09:43 Rayna Yung, DESMOND is Primary Nurse. ss 09:52 No provider procedures requiring assistance completed. Patient did not have IV access ss during this emergency room visit. Administered Medications: 08:30 Drug: Promethazine 25 mg Route: PO; ss 09:52 Follow up: Response: Nausea unchanged ss Medication: 08:37 VIS not applicable for this client. ss Outcome: 09:42 Discharge ordered by . m 09:52 Discharged to home ambulatory. ss 09:52 Condition: good 09:52 Discharge instructions given to patient, Instructed on discharge instructions, follow up and referral plans. medication usage, Demonstrated understanding of instructions, follow-up care, medications, Prescriptions given X 1. 09:52 Patient left the ED. ss Signatures: Steve Jones PA PA jmm Martinez, Amelia as Smirch, Shelby, RN RN ss
[2022-08-21 09:56] VITALS: BP 139/85; O2SAT 100
[2022-08-21 09:58] VITALS: TEMP 98.9
== END 2022-08-21 09:52 | disposition home or self-care (01) ==
LOC: ER 08:15
DX: O99.511 Diseases of the respiratory system complicating pregnancy, first trimester (principal); J06.9 Acute upper respiratory infection, unspecified; Z3A.09 9 weeks gestation of pregnancy; Z20.822 Contact with and (suspected) exposure to COVID-19
CPT/HCPCS: 87070; 87081; 0240U; Q0169

== ENCOUNTER 2022-09-05 13:12 | Emergency (ER) | payer OTHER ==
--- OUTSIDE RECORDS SUMMARY | 2022-09-05 13:15 | XMS REPORT | Continuity of Care Document ---
:1990 Author Organization [facility] t Address [address] [place] [address] Dr. Hale [address] [place] [address] Care Team Providers Name Role Phone Unavailable [...] Clinicians Facility Department ID 2022-07-18 2022-07-18 Outpatient [facility] [id number] [id number] Emil 08:51:37 08:51:37 [address] [place] Results Test Description Test Time Test Comments Results Result Comments Source TSH, THIRD GENERATION 2022-04-05 09:45:16 Test Item Value Reference Range Interpretation Comme nts TSH, THIRD GENERATION (test 2.180 UIU/ML 0.400-4.100 UNLESS OTHERWISE INDICATED, code = 2821) ALL TESTING PER FORMED ATCLINICAL PATH [facility] [place] [address] 1355 STRATEGIC COMMUNICATIONS SPECIALIST: Gurmeet GARCIA [id number] [facility] [place]. [id number] HEMOGLOBIN [id number] 08:28:05 Test Item Value Reference Range Interpretation Comments HEMOGLOBIN A1c (test code = 56197) 5.7 % 4.2-5.6 H CBC W/AUTO DIFF WITH [id number] 07:50:55 Test Item Value Reference Range Interpretation [...] RBCS 0.00 K/UL 0.00-0.11 (test code = 34805) COMPREHENSIVE METABOLIC [id number] 05:42:59 Test Item Value Reference Range Interpretation Comments GLUCOSE (test code = 68 MG/DL 70-99 L 2216) BUN (test code = 9 MG/DL 6-20 2207) CREATININE (test 0.81 MG/DL 0.60-1.30 code = 2214) eGFR (2020 CKD-EPI) 99 ML/MIN/1.73 >60 (test code = 47371) CALC BUN/CREAT (test 11 RATIO 6-28 code = 2235) SODIUM (test code = 143 MEQ/L 130-777 2904) POTASSIUM (test code 4.2 MEQ/L 3.5-5.4 = 2227) CHLORIDE (test code 103 MEQ/L 95-107 = 221) CARBON DIOXIDE (test 24 MEQ/L 19-31 code = 220) CALCIUM (test code = 9.3 MG/DL 8.5-10.5 2208) PROTEIN, TOTAL (test 8.2 G/DL 6.1-8.3 code = 222) ALBUMIN (test code = 4.6 G/DL 3.5-5.2 2200) CALC GLOBULIN (test 3.6 G/DL 1.9-3.7 code = 224) CALC A/G RATIO (test 1.3 RATIO 1.0-2.6 code = 223) BILIRUBIN, TOTAL 0.4 MG/DL See_Comment [Automated message] [...] code = 16 U/L 5-40 2218) LIPID [id number] 05:42:59 Test Item Value Reference Range Interpretation [...] MOREINFORMATION , SEE CLIENT ANNOUNCE MENT AT [email or web address] [email or web address] RATIO LDL/HDL 2.59 RATIO <3.22 (test code = 223) PAP TEST, THINPREP, [id number] 17:32:45 Test Item Value Reference Range Interpretation Comments SOURCE: (test code = Cervical/Endo 8001) cervical SLIDES: (test code = 1 8011) LMP: (test code = 03/05/2022 8021) SPECIMEN ADEQUACY: (NOTE) Satisfac tory for (test code = 53411) evaluati on. Endocervical cells/transform ation zone component present. INTERPRETATION: LSIL/EPITH. A (test code = 18531) ABNORMALITY; -------- SEE BELOW ------- ---- EPITHE LIAL CELL ABNORMALIT Y Low Grade Squam ous Intraepithelial Lesion (LSIL) ------- ------- ------- ---- CARBIDE TOOL MAKER: Emil (test code = 8101) KATHRYN Vilchis(ASC P)[facility] PATHOLOGIST Dariusz London INTERPRETATION BY: (test code = 8122) LOCATION: (test code (NOTE) [place]ime [place] processed at = [address]) [facility] [employer], [address] [place] [address], Phone: , CLIA: [id number] interpreted at Clinical Pathol [facility], [address] [place],Pathology Department [facility], [place] Set on [facility], [place] [address], Phone: , CLIA: [id number] CPT: (test code = (NOTE) 89070, 881 41 UNLESS 8140) OTHERWISE INDIC ATED, [...] consolidated pr ior Pap history is avai labfrancine as applicable. HPV HIGH RISK WITH GENOTYPE, [id number] 18:42:54 Test Item Value Reference Range Interpretation Comments HPV HIGH RISK INTERP POSITIVE NEGATIVE A (test code = 32058) HPV 16 (test code = POSITIVE A 43839) HPV 18 (test code = NEGATIVE 56900) HPV, HR, OTHER NEGATIVE Testing meth odology is GENOTYPES (test code real-ti me PCR utilizing = 31153) hydrolysis prob es with the [employer] Anjelica 4800 system. The héctor t individually [...] ED ATCLINICAL PATH OLOGY LABORATORIES, I [address]. [address] [place] [address] LABORATORY DIRE CTOR: BAKARI SANTILLAN M.D. PABLOIA NUMBER [id number] [place] [id number]
--- NOTE | 2022-09-05 14:33 | RAD REPORT ---
EXAM DESCRIPTION: US - Matter Eval Tm 1 - 09/05/2022 2:18 pm CLINICAL HISTORY: ABD CRAMPING, COMPARISON: OBSTETRICAL COMPLETE dated 12/06/2014 FINDINGS: Single IUP identified. The crown-rump length measures 4.7 cm which is consistent with 11 w [place] 3 day. heart tones measured at 160 bpm. IMPRESSION: Single IUP with positive heart tones measuring 11 week 3 day with MATT of 3.
[2022-09-05] MEDS ORDERED: PROMETHAZINE INJ 25 MG/ML AMP ONE (14:52)
[2022-09-05] MEDS ORDERED: NA CHLORIDE 0.9% 1,000 ML ONE (14:53)
[2022-09-05 14:57] LABS: Absolute Lymphocytes (CBC) 1.9 K/uL (0.7-4.9); Hematocrit 40.7 % (36.0-45.0); Lymphocytes % 20.2 % (15.3-44.8); MCV 85.8 fL (80-100); MPV 9.4 fL (7.6-11.3); RBC Red Blood Cell Count 4.74 M/uL (3.86-4.86)
[2022-09-05 15:33] LABS: Potassium 3.7 mmol/L (3.5-5.1)
[2022-09-05 17:14] LABS: Urine Blood Trace-lysed (Negative); Urine Glucose Negative (Negative); Urine Protein 1+ (Negative); Urine Specific Gravity >=1.030 (1.005-1.030); Urine pH 5.5 (5.0-7.0)
[2022-09-05 17:29] LABS: Urine Specific Gravity/Preg >1.030 (1.005-1.030)
--- NOTE | 2022-09-05 17:58 | EDPHYS ---
Physician Documentation [facility] Name: Deniz Rivers Age: 31 yrs Sex: Female : 1990 Arrival Date: 09/05/2022 Time: 13:14 Bed DIS3 Private MD: ED Physician Wendy Tang HPI: 09/05 14:25 This 31 yrs old Female presents to ER via Ambulatory with complaints of kb Nausea/Vomiting, Abdominal Cramping - 11 wks . 14:25 The patient has not experienced similar symptoms in the past. kb 14:25 The patient presents to the emergency department with nausea and vomiting. The kb estimated gestational age is 11 weeks. course: care: private OB physician, Dr. Christianson. Previous pregnancies: in previous pregnancies patient has had. Associated signs and symptoms: Pertinent positives: abdominal pain, nausea, vomiting. The patient has not recently seen a physician. FINE PATCHER: 13:57 3, Full Term 1, Premature 1, LMP 06/21/2022 bp 14:25 3, 1, Living 1, LMP 06/25/2022 kb Historical: - Allergies: 13:57 No Known Allergies; bp - Home Meds: 13:57 Vitamin oral tab 1 tab once daily [Active]; bp - PMHx: 13:57 pre eclampsia; bp - Immunization history:: Adult Immunizations up to date. - Social history:: Smoking status: Patient denies any tobacco usage or history of. ROS: 14:24 Constitutional: Negative for fever, chills, and weight loss. kb 14:24 Abdomen/GI: Positive for nausea and vomiting, constipation, abdominal cramps, Negative for abdominal pain, diarrhea. 14:24 All other systems are negative. Exam: 14:25 Constitutional: This is a well developed, well nourished patient who is awake, alert, kb and in no acute distress. Head/Face: Normocephalic, atraumatic. ENT: Moist Mucous membranes Cardiovascular: Regular rate and rhythm with a normal S1 and S2. No gallops, murmurs, or rubs. No pulse deficits. Respiratory: Respirations even and unlabored. No increased work of breathing. Talking in full sentences Abdomen/GI: Soft, non-tender. No distention Skin: Warm, dry with normal turgor. Normal color. MS/ Extremity: Pulses equal, no cyanosis. Neurovascular intact. Full, normal range of motion. Neuro: Awake and alert, GCS 15, oriented to person, place, time, and situation. Moves all extremities. Normal gait. Psych: Awake, alert, with orientation to person, place and time. Behavior, mood, and affect are within normal limits. Vital Signs: 13:55 BP 136 / 84; Pulse 90; Resp 16; Temp 98.7; Pulse Ox 99% ; Weight 86.18 kg; Height 5 ft. bp 2 in. (157.48 cm); 13:55 Body Mass Index 34.75 (86.18 kg, 157.48 cm) bp MDM: 13:49 Patient medically screened. kb 14:24 Data reviewed: vital signs, nurses notes. Data interpreted: Pulse oximetry: on room air kb is 99 %. Interpretation: normal. 16:32 Counseling: I had a detailed discussion with the patient and/or guardian regarding: the kb historical points, exam findings, and any diagnostic results supporting the discharge/admit diagnosis, lab results, radiology results, the need for outpatient follow up, an OB/Gyne specialist, to return to the emergency department if symptoms worsen or persist or if there are any questions or concerns that arise at home. 17:57 ED course: Pt tolerating po intake. 09/05 14:05 Order name: Abo/rh Typing; Complete Time: 15:39 kb 09/05 14:05 Order name: Basic Metabolic Panel; Complete Time: 15:39 kb 09/05 14:05 Order name: CBC with Diff; Complete Time: 15:31 kb 09/05 14:05 Order name: Quantitative Hcg; Complete Time: 15:39 kb 09/05 17:14 Order name: Urine Dipstick-Ancillary; Complete Time: 17:26 EDMS 09/05 17:18 Order name: Urine --Ancillary (enter results); Complete Time: 17:31 kj1 09/05 14:05 Order name: IV Saline Lock; Complete Time: 14:59 kb 09/05 14:05 Order name: Labs collected and sent; Complete Time: 14:58 kb 09/05 14:05 Order name: NPO; Complete Time: 14:58 kb 09/05 14:05 Order name: Urine Dipstick-Ancillary (obtain specimen); Complete Time: 17:14 kb 09/05 14:20 Order name: Matter Eval Tm 1; Complete Time: 14:46 EDMS 09/05 14:05 Order name: Urine Test (obtain specimen); Complete Time: 17:14 kb 09/05 16:06 Order name: PO challenge; Complete Time: 17:19 kb Administered Medications: 14:45 Drug: NS 0.9% 1000 ml Route: IV; Rate: 1000 ml; Site: left antecubital; bp 14:45 Drug: Phenergan (promethazine) 25 mg Route: IM; Site: left deltoid; bp Disposition Summary: 09/05/22 17:57 Discharge Ordered Location: Home kb Condition: Stable kb Diagnosis - Vomiting of , unspecified kb Followup: kb - With: Emergency Department - When: As needed - Reason: Worsening of condition Followup: kb - With: Private Physician - When: 2 - 3 days - Reason: Recheck today's complaints, Continuance of care, Re-evaluation by your physician Discharge Instructions: - Discharge Summary Sheet kb - Morning Sickness, Tegv-ef-Ysuc kb Forms: - Medication Reconciliation Form kb - Thank You Letter kb - Antibiotic Education kb - Prescription Opioid Use kb Addendum: 09/09/2022 18:25 STAFF ATTESTATION STATEMENT: I was immediately available onsite in the emergency s d2 department for consultation in the care of this patient. I did not see or examine this patient. Wendy Tang MD. Signatures: Dispatcher [employer] EDFarnaz Pickard, ASH ARTIS-Tariq El, RN RN Wendy Alvares MD MD sd2 Corrections: (The following items were deleted from the chart) 09/05 14:20 14:05 Transvaginal Ob+US.RAD.BRZ ordered. EDMS EDMS
--- NOTE | 2022-09-05 17:58 | ER ---
Nurse's Notes [facility] Name: Deniz Rivers Age: 31 yrs Sex: Female : 1990 Arrival Date: 09/05/2022 Time: 13:14 Bed DIS3 Private MD: Diagnosis: Vomiting of , unspecified Presentation: 09/05 13:55 Chief complaint: Patient states: NAUSEA/VOMITING x2 DAYS, ZOFRAN INEFFECTIVE. bp Coronavirus screen: At this time, the client does not indicate any symptoms associated with coronavirus-19. Ebola Screen: No symptoms or risks identified at this time. Initial Sepsis Screen: Does the patient meet any 2 criteria? No. Patient's initial sepsis screen is negative. Does the patient have a suspected source of infection? No. Patient's initial sepsis screen is negative. Risk Assessment: Do you want to hurt yourself or someone else? Patient reports no desire to harm self or others. Onset of symptoms is unknown. 13:55 Method Of Arrival: Ambulatory bp 13:55 Acuity: ANISHA 3 bp Triage Assessment: 13:57 General: Appears in no apparent distress. Behavior is cooperative, appropriate for age, bp anxious. Pain: Complains of pain in right upper quadrant and left upper quadrant. 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 - Social history:: Smoking status: Patient denies any tobacco usage or history of. Assessment: 18:19 General: Appears in no apparent distress. comfortable, Behavior is calm, cooperative. ss Neuro: Level of Consciousness is awake, alert, obeys commands. Respiratory: Airway is patent Respiratory effort is even, unlabored, Respiratory pattern is regular, symmetrical. Derm: Skin is pink, warm \T\ dry. normal. 18:20 Reassessment: Patient appears in no apparent distress at this time. Patient is alert, ss oriented x 3, equal unlabored respirations, skin warm/dry/pink. Vital Signs: 13:55 BP 136 / 84; Pulse 90; Resp 16; Temp 98.7; Pulse Ox 99% ; Weight 86.18 kg; Height 5 ft. bp 2 in. (157.48 cm); 13:55 Body Mass Index 34.75 (86.18 kg, 157.48 cm) bp ED Course: 13:14 Patient arrived in ED. am2 13:20 Farnaz Carey FNP-C [facility]. kb 13:21 Wendy Tang MD is Attending Physician. kb 13:57 Triage completed. bp 13:57 Arm band placed on. bp 14:20 Matter Eval Tm 1 In Process Unspecified. EDMS 14:45 Inserted saline lock: 20 gauge in left antecubital area, using aseptic technique. Blood bp collected. 18:19 Rayna Yung, RN is Primary Nurse. ss 18:19 Patient has correct armband on for positive identification. ss 18:19 No provider procedures requiring assistance completed. IV discontinued, intact, ss bleeding controlled, No redness/swelling at site. Pressure dressing applied. Administered Medications: 14:45 Drug: NS 0.9% 1000 ml Route: IV; Rate: 1000 ml; Site: left antecubital; bp 14:45 Drug: Phenergan (promethazine) 25 mg Route: IM; Site: left deltoid; bp Medication: 18:19 VIS not applicable for this client. ss Outcome: 17:57 Discharge ordered by . kb 18:19 Discharged to home ambulatory. ss 18:19 Condition: good 18:19 Discharge instructions given to patient, Instructed on discharge instructions, follow up and referral plans. Demonstrated understanding of instructions, follow-up care. 18:20 Patient left the ED. ss Signatures: Dispatcher [employer] EDMS Farnaz Carey FNP-C FNP-Rayna Zarate, DESMOND RN ss Uzma Bond am2 Tariq Gray RN RN bp
[2022-09-05 18:25] VITALS: BP 136/84; TEMP 98.7; O2SAT 99
== END 2022-09-05 18:20 | disposition home or self-care (01) ==
LOC: ER 13:12
DX: O21.9 Vomiting of pregnancy, unspecified (principal); Z3A.11 11 weeks gestation of pregnancy
CPT/HCPCS: 85025; 80048; 36415; 86900; 81025; 86901; 84702; 81003; 76801; 96372; 99284; J2550; J7030

== ENCOUNTER 2022-09-09 21:12 | Emergency (ER) | payer OTHER ==
--- OUTSIDE RECORDS SUMMARY | 2022-09-09 21:16 | XMS REPORT | Continuity of Care Document ---
:[address] [facility] t Address [address] [place] [address] Dr. Hale [address] [place] [address] Care Team Providers Name Role Phone Unavailable [...] Clinicians Facility Department ID 2022-07-18 2022-07-18 Outpatient [facility] [id number] [id number] Emil 08:51:37 08:51:37 [address] [place] Results Test Description Test Time Test Comments Results Result Comments Source TSH, THIRD GENERATION 2022-04-05 09:45:16 Test Item Value Reference Range Interpretation Comme nts TSH, THIRD GENERATION (test 2.180 UIU/ML 0.400-4.100 UNLESS OTHERWISE INDICATED, code = 2821) ALL TESTING PER FORMED [facility]CLINICAL PATH [facility] [place] [address] INDUSTRIAL SERVICER: Gurmeet GARCIA [id number] [facility] [place] [id number] HEMOGLOBIN [id number] 08:28:05 Test Item Value Reference Range Interpretation Comments HEMOGLOBIN A1c (test code = 20699) 5.7 % 4.2-5.6 H CBC W/AUTO DIFF WITH [id number] 07:50:55 Test Item Value Reference Range Interpretation [...] RBCS 0.00 K/UL 0.00-0.11 (test code = 68765) COMPREHENSIVE METABOLIC [id number] 05:42:59 Test Item Value Reference Range Interpretation Comments GLUCOSE (test code = 68 MG/DL 70-99 L 2216) BUN (test code = 9 MG/DL 6-20 2207) CREATININE (test 0.81 MG/DL 0.60-1.30 code = 2214) eGFR (2020 CKD-EPI) 99 ML/MIN/1.73 >60 (test code = 04142) CALC BUN/CREAT (test 11 RATIO 6-28 code = 2235) SODIUM (test code = 143 MEQ/L 443-611 6233) POTASSIUM (test code 4.2 MEQ/L 3.5-5.4 = [...] code = 16 U/L 5-40 2218) LIPID [id number] 05:42:59 Test Item Value Reference Range Interpretation [...] MOREINFORMATION , SEE CLIENT ANNOUNCE MENT AT [email or web address] [email or web address] RATIO LDL/HDL 2.59 RATIO <3.22 (test code = 223) PAP TEST, THINPREP, [id number] 17:32:45 Test Item Value Reference Range Interpretation Comments SOURCE: (test code = Cervical/Endo 8001) cervical SLIDES: (test code = 1 8011) LMP: (test code = 03/05/2022 8021) SPECIMEN ADEQUACY: (NOTE) Satisfac tory for (test code = 40797) evaluati on. Endocervical cells/transform ation zone component present. INTERPRETATION: LSIL/EPITH. A (test code = 97465) ABNORMALITY; -------- SEE BELOW ------- ---- EPITHE LIAL CELL ABNORMALIT Y Low Grade Squam ous Intraepithelial Lesion (LSIL) ------- ------- ------- ---- DRY BOX OPERATOR: Emil (test code = 8101) KATHRYN Vilchis(ASC P)[facility] PATHOLOGIST Dariusz London INTERPRETATION BY: (test code = 8122) LOCATION: (test code (NOTE) [place]ime [place] processed at = [address]) [employer], [address] [place] [address], Phone: , CLIA: [id number] interpreted at Clinical Pathol [facility], [address] [place],Pathology Department [facility], [place] on [facility], [place] [address], Phone: , CLIA: [id number] CPT: (test code = (NOTE) 46264, 881 41 UNLESS 8140) OTHERWISE INDIC ATED, [...] as applicable. HPV HIGH RISK WITH GENOTYPE, [id number] 18:42:54 Test Item Value Reference Range Interpretation Comments HPV HIGH RISK INTERP POSITIVE NEGATIVE A (test code = 14960) HPV 16 (test code = POSITIVE A 75014) HPV 18 (test code = NEGATIVE 24458) HPV, HR, OTHER NEGATIVE Testing meth odology is GENOTYPES (test code real-ti me PCR utilizing = 77534) hydrolysis prob es with the [employer] Anjelica 4800 system. The héctor t individually [...] ED ATCLINICAL PATH OLOGY LABORATORIES, I [address]. [address] [place] [address] LABORATORY DIRE CTOR: BAKARI SANTILLAN M.D. PABLOIA NUMBER [id number] [place] [id number]
[2022-09-10] MEDS ORDERED: NA CHLORIDE 0.9% 2,000 ML ONE (01:04)
[2022-09-10] MEDS ORDERED: ONDANSETRON 4 MG/2 ML VIAL ONE (01:04)
[2022-09-10 01:21] LABS: Absolute Lymphocytes (CBC) 2.3 K/uL (0.7-4.9); Hematocrit 39.5 % (36.0-45.0); Lymphocytes % 22.6 % (15.3-44.8); MCV 84.9 fL (80-100); MPV 9.3 fL (7.6-11.3); RBC Red Blood Cell Count 4.66 M/uL (3.86-4.86)
[2022-09-10 02:30] LABS: Albumin 3.1 g/dL (3.4-5.0); Bilirubin Total 0.7 mg/dL (0.2-1.0); Potassium 3.6 mmol/L (3.5-5.1); Protein, Total 7.5 g/dL (6.4-8.2)
--- NOTE | 2022-09-10 03:28 | ER ---
Nurse's Notes [facility] Name: Deniz Rivers Age: 31 yrs Sex: Female : 1990 Arrival Date: 09/09/2022 Time: 21:16 Bed 23 Private MD: Diagnosis: 13 weeks gestation of ;Other vomiting complicating ;Vomiting of , unspecified;Other cholelithiasis without obstruction;UTI/ Urinary tract infection, site not specified Presentation: 09/09 21:35 Chief complaint: Patient states: "I was here last because I couldn't keep vc1 anything down. I have a headache and still can't keep anything down. I was prescribed zofran but before it even dissolves I throw up.". Coronavirus screen: Vaccine status: Patient reports receiving the 2nd dose of the covid vaccine. Unsure of tree thinner At this time, the client does not indicate any symptoms associated with coronavirus-19. Ebola Screen: No symptoms or risks identified at this time. Initial Sepsis Screen: Does the patient meet any 2 criteria? HR > 90 bpm. No. Patient's initial sepsis screen is negative. Does the patient have a suspected source of infection? No. Patient's initial sepsis screen is negative. Risk Assessment: Do you want to hurt yourself or someone else? Patient reports no desire to harm self or others. Onset of symptoms was September 09, 2022. 21:35 Method Of Arrival: Ambulatory vc1 21:35 Acuity: ANISHA 3 vc1 Triage Assessment: 21:39 General: Appears in no apparent distress. uncomfortable, ill, Behavior is calm, vc1 cooperative, appropriate for age. Pain: Complains of pain in headache Pain does not radiate. Pain currently is 6 out of 10 on a pain scale. Noted to be Also complains of nausea. EENT: No deficits noted. Neuro: Reports dizziness, headache. Cardiovascular: Reports lightheadedness, vomiting. Respiratory: Airway is patent Respiratory effort is even, unlabored, Respiratory pattern is regular, symmetrical. GI: Pt is actively vomiting clear fluid, Reports intolerance of fluids, intolerance of food, nausea, vomiting. : No deficits noted. No signs and/or symptoms were reported regarding the genitourinary system. Derm: No deficits noted. No signs and/or symptoms reported regarding the dermatologic system. Musculoskeletal: No deficits noted. No signs and/or symptoms reported regarding the musculoskeletal system. Historical: - Allergies: 21:39 No Known Allergies; vc1 - Home Meds: 21:39 Vitamin Oral tab 1 tab once daily [Active]; vc1 - PMHx: 21:39 pre eclampsia; vc1 - PSHx: 21:39 None; vc1 - Immunization history:: Client reports receiving the 2nd dose of the Covid vaccine. - Social history:: Smoking status: Patient denies any tobacco usage or history of. - Family history:: not pertinent. Screenin/03 01:45 [facility] ED Fall Risk Assessment (Adult) History of falling in the last 3 months, bb including since admission No falls in past 3 months (0 pts). Abuse screen: Denies threats or abuse. Nutritional screening: No deficits noted. Tuberculosis screening: No symptoms or risk factors identified. Assessment: 01:45 General: Appears in no apparent distress. Behavior is calm, cooperative. Neuro: Level bb of Consciousness is awake, alert, obeys commands, Oriented to person, place, time, situation. Cardiovascular: Capillary refill < 3 seconds Patient's skin is warm and dry. Respiratory: Respiratory effort is even, unlabored, Respiratory pattern is regular. GI: Abdomen is round Reports nausea, vomiting. Derm: Skin is pink, warm \\T\\ dry. Musculoskeletal: Circulation, motion, and sensation intact. 04:04 Reassessment: Patient is alert, oriented x 3, equal unlabored respirations, skin bb warm/dry/pink. pt verbalized understanding of and agrees to plan of care discharge instructions given pt ambulated with steady gait to exit accompanied by family. Vital Signs: 09/09 21:35 BP 152 / 104; Pulse 112; Resp 20; Temp 97.7; Pulse Ox 100% ; Height 5 ft. 2 in. (157.48 vc1 cm); Pain 6/10; 09/10 01:25 BP 133 / 69; Pulse 83; Resp 18; Temp 98.3; Pulse Ox 100% ; rv1 01:45 BP 131 / 80; Pulse 80; Resp 16 S; Pulse Ox 98% on R/A; bb 03:51 BP 127 / 75; Pulse 80; Resp 18; Temp 97.7; Pulse Ox 99% ; rv1 ED Course: 09/09 21:16 Patient arrived in ED. mr 21:39 Triage completed. vc1 21:39 Arm band placed on right wrist. vc1 21:40 Jl Deluca MD is Attending Physician. jody 09/10 01:13 CBC with Diff Sent. rv1 01:13 Comprehensive Metabolic Panel Sent. rv1 01:13 Inserted saline lock: 20 gauge in right antecubital area, using aseptic technique. rv1 Blood collected. 01:21 Carol Meza RN is Primary Nurse. bb 01:45 Patient has correct armband on for positive identification. Placed in gown. Bed in low bb position. Call light in reach. Side rails up X 1. Adult w/ patient. Pulse ox on. NIBP on. Warm blanket given. Pillow given. 01:45 Inserted saline lock: 22 gauge in left hand, using aseptic technique. bb 03:00 Carol Meza, RN is Primary Nurse. bb 03:16 US Abdomen Limited In Process Unspecified. EDMS 03:27 Octaviano Christianson MD is Referral Physician. jody 03:27 Moo Altamirano MD is Referral Physician. jody 04:06 No provider procedures requiring assistance completed. IV discontinued, intact, bb bleeding controlled, No redness/swelling at site. Pressure dressing applied. Administered Medications: 01:35 Drug: Zofran (Ondansetron) 4 mg Route: IVP; Site: right antecubital; bb 03:42 Follow up: Response: No adverse reaction bb 01:44 Drug: NS 0.9% 1000 ml Route: IV; Rate: 1 bolus; Site: left hand; bb 03:42 Follow up: IV Status: Completed infusion; IV Intake: 950ml bb 01:44 Drug: NS 0.9% 1000 ml Route: IV; Rate: 1 bolus; Site: left hand; bb 03:43 Follow up: IV Status: Order to discontinue infusion; IV Intake: 600ml bb 03:57 CANCELLED (Duplicate Order): Rocephin (cefTRIAXone) 1 grams IV at per protocol once; jody Given slow IV push per pharmacy instructions 03:58 CANCELLED (Duplicate Order): Rocephin (cefTRIAXone) 1 grams IM once jody 04:03 Drug: KeFLEX (cephalexin) 500 mg Route: PO; bb 04:04 Follow up: Response: Medication administered at discharge. bb Medication: 01:45 VIS not applicable for this client. bb Intake: 03:42 IV: 950ml; Total: 950ml. bb 03:43 IV: 600ml; Total: 1550ml. bb Outcome: 03:27 Discharge ordered by . jody 04:06 Discharged to home ambulatory, with family. bb 04:06 Condition: stable 04:06 Discharge instructions given to patient, Instructed on discharge instructions, follow up and referral plans. medication usage, Demonstrated understanding of instructions, follow-up care, medications, Prescriptions given X 3. 04:07 Patient left the ED. bb Signatures: Dispatcher [employer] EDMS Jl Deluca MD MD cha Rivera, Sandra Carol Dailey RN RN Linnea Sultana RN RN [facility] Gauri Carney [facility]
--- NOTE | 2022-09-10 03:28 | EDPHYS ---
Physician Documentation [facility] Name: Deniz Rivers Age: 31 yrs Sex: Female : 1990 Arrival Date: 09/09/2022 Time: 21:16 Bed 23 Private MD: JESSICA Physician Jl Deluca HPI: 09/10 01:48 This 31 yrs old Female presents to ER via Ambulatory with complaints of 13 wks jody , Vomiting. 01:48 The patient presents to the emergency department with nausea, vomiting, that is jody continuous. Onset: The symptoms/episode began/occurred 3 day(s) ago. Possible causes: . The symptoms are aggravated by nothing. The symptoms are alleviated by remaining still. Associated signs and symptoms: Pertinent positives: nausea, vomiting. Severity of symptoms: At their worst the symptoms were mild in the emergency department the symptoms are unchanged. The patient has experienced similar episodes in the past, multiple times. Historical: - Allergies: 09/09 21:39 No Known Allergies; vc1 - Home Meds: 21:39 Vitamin Oral tab 1 tab once daily [Active]; vc1 - PMHx: 21:39 pre eclampsia; vc1 - PSHx: 21:39 None; vc1 - Immunization history:: Client reports receiving the 2nd dose of the Covid vaccine. - Social history:: Smoking status: Patient denies any tobacco usage or history of. - Family history:: not pertinent. ROS: 09/10 01:48 Constitutional: Negative for fever, chills, and weight loss, Eyes: Negative for injury, jody pain, redness, and discharge, ENT: Negative for injury, pain, and discharge, Neck: Negative for injury, pain, and swelling, Cardiovascular: Negative for chest pain, palpitations, and edema, Respiratory: Negative for shortness of breath, cough, wheezing, and pleuritic chest pain, Back: Negative for injury and pain, : Negative for injury, bleeding, discharge, and swelling, MS/Extremity: Negative for injury and deformity, Skin: Negative for injury, rash, and discoloration, Neuro: Negative for headache, weakness, numbness, tingling, and seizure, Psych: Negative for depression, anxiety, suicide ideation, homicidal ideation, and hallucinations, Allergy/Immunology: Negative for hives, rash, and allergies, Endocrine: Negative for neck swelling, polydipsia, polyuria, polyphagia, and marked weight changes, Hematologic/Lymphatic: Negative for swollen nodes, abnormal bleeding, and unusual bruising. Abdomen/GI: Positive for nausea and vomiting, abdominal distension. Exam: 01:48 Constitutional: This is a well developed, well nourished patient who is awake, alert, jody and in no acute distress. Head/Face: Normocephalic, atraumatic. Eyes: Pupils equal round and reactive to light, extra-ocular motions intact. Lids and lashes normal. Conjunctiva and sclera are non-icteric and not injected. Cornea within normal limits. Periorbital areas with no swelling, redness, or edema. ENT: Nares patent. No nasal discharge, no septal abnormalities noted. Tympanic membranes are normal and external auditory canals are clear. Oropharynx with no redness, swelling, or masses, exudates, or evidence of obstruction, uvula midline. Mucous membranes moist. Neck: Trachea midline, no thyromegaly or masses palpated, and no cervical lymphadenopathy. Supple, full range of motion without nuchal rigidity, or vertebral point tenderness. No Meningismus. Chest/axilla: Normal chest wall appearance and motion. Nontender with no deformity. No lesions are appreciated. Cardiovascular: Regular rate and rhythm with a normal S1 and S2. No gallops, murmurs, or rubs. Normal PMI, no JVD. No pulse deficits. Respiratory: Lungs have equal breath sounds bilaterally, clear to auscultation and percussion. No rales, rhonchi or wheezes noted. No increased work of breathing, no retractions or nasal flaring. Abdomen/GI: Soft, non-tender, with normal bowel sounds. No distension or tympany. No guarding or rebound. No evidence of tenderness throughout. Back: No spinal tenderness. No costovertebral tenderness. Full range of motion. Skin: Warm, dry with normal turgor. Normal color with no rashes, no lesions, and no evidence of cellulitis. MS/ Extremity: Pulses equal, no cyanosis. Neurovascular intact. Full, normal range of motion. Neuro: Awake and alert, GCS 15, oriented to person, place, time, and situation. Cranial nerves II-XII grossly intact. Motor strength 5/5 in all extremities. Sensory grossly intact. Cerebellar exam normal. Normal gait. Psych: Awake, alert, with orientation to person, place and time. Behavior, mood, and affect are within normal limits. Vital Signs: 09/09 21:35 BP 152 / 104; Pulse 112; Resp 20; Temp 97.7; Pulse Ox 100% ; Height 5 ft. 2 in. (157.48 vc1 cm); Pain 6/10; 09/10 01:25 BP 133 / 69; Pulse 83; Resp 18; Temp 98.3; Pulse Ox 100% ; rv1 01:45 BP 131 / 80; Pulse 80; Resp 16 S; Pulse Ox 98% on R/A; bb 03:51 BP 127 / 75; Pulse 80; Resp 18; Temp 97.7; Pulse Ox 99% ; rv1 MDM: 09/09 21:40 Patient medically screened. [facility] 09/10 01:51 Differential diagnosis: viral gastroenteritis, gastroenteritis. Data reviewed: vital jody signs, nurses notes, lab test result(s). Data interpreted: playground monitor: not applicable for this patient encounter. rate is 80 beats/min, rhythm is regular, Pulse oximetry: on room air is 98 %. Counseling: I had a detailed discussion with the patient and/or guardian regarding: the historical points, exam findings, and any diagnostic results supporting the discharge/admit diagnosis, lab results, radiology results, the need for outpatient follow up, for definitive care, an OB/Gyne specialist. 09/09 21:42 Order name: Comprehensive Metabolic Panel; Complete Time: 02:49 [facility] 09/09 21:42 Order name: CBC with Diff; Complete Time: 01:48 [facility] 09/10 02:50 Order name: US Abdomen Limited [facility] 09/10 03:36 Order name: Urine Dipstick-Ancillary; Complete Time: 03:52 EDMS 09/09 21:42 Order name: FHT's [facility] 09/09 21:42 Order name: Urine Dipstick-Ancillary (obtain specimen); Complete Time: 03:36 [facility] 09/10 01:33 Order name: Labs - recollect needed: lab green top; Complete Time: 02:51 mw2 09/10 03:28 Order name: Misc. Order: get ua before dc; Complete Time: 03:36 [facility] Administered Medications: 01:35 Drug: Zofran (Ondansetron) 4 mg Route: IVP; Site: right antecubital; bb 03:42 Follow up: Response: No adverse reaction bb 01:44 Drug: NS 0.9% 1000 ml Route: IV; Rate: 1 bolus; Site: left hand; bb 03:42 Follow up: IV Status: Completed infusion; IV Intake: 950ml bb 01:44 Drug: NS 0.9% 1000 ml Route: IV; Rate: 1 bolus; Site: left hand; bb 03:43 Follow up: IV Status: Order to discontinue infusion; IV Intake: 600ml bb 03:57 CANCELLED (Duplicate Order): Rocephin (cefTRIAXone) 1 grams IV at per protocol once; jody Given slow IV push per pharmacy instructions 03:58 CANCELLED (Duplicate Order): Rocephin (cefTRIAXone) 1 grams IM once jody 04:03 Drug: KeFLEX (cephalexin) 500 mg Route: PO; bb 04:04 Follow up: Response: Medication administered at discharge. bb Disposition Summary: 09/10/22 03:27 Discharge Ordered Location: Home jody Problem: new jody Symptoms: have improved jody Condition: Stable jody Diagnosis - 13 weeks gestation of jody - Other vomiting complicating jody - Vomiting of , unspecified jody - Other cholelithiasis without obstruction jody - UTI/ Urinary tract infection, site not specified jody Followup: jody - With: Private Physician - When: 2 - 3 days - Reason: Recheck today's complaints, Continuance of care, Re-evaluation by your physician Followup: jody - With: - When: 2 - 3 days - Reason: Recheck today's complaints, Continuance of care, Re-evaluation by your physician Followup: jody - With: Moo Altamirano MD - When: 2 - 3 days - Reason: Recheck today's complaints, Re-evaluation by your physician Discharge Instructions: - Discharge Summary Sheet jody - Fat and Cholesterol Restricted Eating Plan jody - Hyperemesis Gravidarum jody - Morning Sickness, Mjis-we-Ixnm jody - Nausea and Vomiting, Adult jody - Care jody - Morning Sickness jody - Cholelithiasis jody - Cholelithiasis, Cdfb-rq-Catj jody - Fat and Cholesterol Restricted Eating Plan, Rwkq-rg-Umjr jody - Urinary Tract Infection, Adult jody - Urinary Tract Infection, Adult, Exbp-yc-Fbte jody Forms: - Medication Reconciliation Form jody - Thank You Letter jody - Antibiotic Education jody - Prescription Opioid Use jody Prescriptions: - Zofran 4 mg Oral Tablet - take 1 tablet by ORAL route every 12 hours As needed; 20 tablet; Refills: 0, [facility] Product Selection Permitted - Cephalexin 500 mg Oral Capsule - take 1 capsule by ORAL route every 6 hours for 7 days; 28 capsule; Refills: 0, [facility] Product Selection Permitted - promethazine 25 mg Oral Tablet - take 1 tablet by ORAL route every 6 hours As needed; 20 tablet; Refills: 0, [facility] Product Selection Permitted Signatures: Dispatcher [employer] EDJl Jama MD MD cha Ballard, Brenda, RN RN bb Mckenzie Quinonez mw2 Linnea Hall RN RN vc1 Corrections: (The following items were deleted from the chart) 03:57 03:53 Rocephin (cefTRIAXone) 1 grams IV at per protocol once; Given slow IV push per [facility] pharmacy instructions ordered. [facility] 03:58 03:58 Rocephin (cefTRIAXone) 1 grams IM once ordered. [facility]
[2022-09-10 03:36] LABS: Urine Blood Trace-intact (Negative); Urine Glucose Negative (Negative); Urine Protein Trace (Negative); Urine Specific Gravity >=1.030 (1.005-1.030); Urine pH 5.5 (5.0-7.0)
[2022-09-10] MEDS ORDERED: CEPHALEXIN 250 MG CAP ONE (04:03)
[2022-09-10 04:35] VITALS: BP 127/75; TEMP 97.7; O2SAT 99
--- NOTE | 2022-09-10 12:25 | RAD REPORT ---
EXAM DESCRIPTION: US - Abdomen Exam Limited - 09/10/2022 3:15 am CLINICAL HISTORY: 31 years Female ABD PAIN TECHNIQUE: Limited sonographic imaging of the right upper quadrant was performed on 09/10/2022 at 3: 1 0 AM. COMPARISON: No prior study was available for comparison.. FINDINGS: The gallbladder is well-distended and contains echogenic debris in the dependent portion o f the gallbladder lumen with occasional shadowing intraluminal echoes most consistent with a combinat ion of sludge and small stones. Gallbladder wall measures approximately 2 mm in diameter. There is no evidence of pericholecystic fluid. No sonographic Cedillo sign was detected by the technologist. Comm on bile duct measures 3 mm in diameter. There is no evidence of biliary ductal dilatation. IMPRESSION: Sludge and stones within the gallbladder lumen without evidence of gallbladder wall thic kening, pericholecystic fluid, biliary ductal dilatation or positive sonographic Cedillo sign Electronically signed by: Halima Hart DO 09/10/2022 3:31 AM GAME DEVELOPER Due to temporary technical issues with the PACS/Fluency reporting system, reports are being signed by the in house radiologists without review as a courtesy to insure prompt reporting. The interpreting radiologist is fully responsible for the content of the report.
== END 2022-09-10 04:07 | disposition home or self-care (01) ==
LOC: ER 21:12
DX: O99.611 Diseases of the digestive system complicating pregnancy, first trimester (principal); K80.80 Other cholelithiasis without obstruction; O23.41 Unspecified infection of urinary tract in pregnancy, first trimester; N39.0 Urinary tract infection, site not specified; O21.8 Other vomiting complicating pregnancy
CPT/HCPCS: 85025; 36415; 81003; 80053; 76705; J7030; J2405; 96361; 96374; 99284

== ENCOUNTER 2022-09-16 19:24 | Emergency (ER) | payer OTHER ==
--- OUTSIDE RECORDS SUMMARY | 2022-09-16 19:27 | XMS REPORT | Continuity of Care Document ---
:1990 Author Organization [facility] t Address [address] [place] [address] [address] [place] [address] Care Team Providers Name Role Phone Unavailable [...] Clinicians Facility Department ID 2022-07-18 2022-07-18 Outpatient [facility] [id number] [id number] Emil 08:51:37 08:51:37 [address] Results Test Description Test Time Test Comments Results Result Comments Source TSH, THIRD GENERATION 2022-04-05 09:45:16 Test Item Value Reference Range Interpretation Comme nts TSH, THIRD GENERATION (test 2.180 UIU/ML 0.400-4.100 UNLESS OTHERWISE INDICATED, code = 2821) ALL TESTING PER FORMED ATCLINICAL PATH [facility] [place] [id number] MOBILE APPLICATION TESTER: Gurmeet GARCIA [id number] [facility] [place] [id number] HEMOGLOBIN [id number] 08:28:05 Test Item Value Reference Range Interpretation Comments HEMOGLOBIN A1c (test code = 84021) 5.7 % 4.2-5.6 H CBC W/AUTO DIFF WITH [id number] 07:50:55 Test Item Value Reference Range Interpretation [...] RBCS 0.00 K/UL 0.00-0.11 (test code = 80968) COMPREHENSIVE METABOLIC [id number] 05:42:59 Test Item Value Reference Range Interpretation Comments GLUCOSE (test code = 68 MG/DL 70-99 L 2216) BUN (test code = 9 MG/DL 6-20 2207) CREATININE (test 0.81 MG/DL 0.60-1.30 code = 2214) eGFR (2020 CKD-EPI) 99 ML/MIN/1.73 >60 (test code = 99221) CALC BUN/CREAT (test 11 RATIO 6-28 code = 2235) SODIUM (test code = 143 MEQ/L 356-940 6415) POTASSIUM (test code 4.2 MEQ/L 3.5-5.4 = [...] code = 16 U/L 5-40 2218) LIPID [id number] 05:42:59 Test Item Value Reference Range Interpretation [...] MOREINFORMATION , SEE CLIENT ANNOUNCE MENT AT [email or web address] RISK RATIO LDL/HDL 2.59 RATIO <3.22 (test code = 223) PAP TEST, THINPREP, [id number] 17:32:45 Test Item Value Reference Range Interpretation Comments SOURCE: (test code = Cervical/Endo 8001) cervical SLIDES: (test code = 1 8011) LMP: (test code = 03/05/2022 8021) SPECIMEN ADEQUACY: (NOTE) Satisfac tory for (test code = 66337) evaluati on. Endocervical cells/transform ation zone component present. INTERPRETATION: LSIL/EPITH. A (test code = 35565) ABNORMALITY; -------- SEE BELOW ------- ---- EPITHE LIAL CELL ABNORMALIT Y Low Grade Squam ous Intraepithelial Lesion (LSIL) ------- ------- ------- ---- SECONDS INSPECTOR: Emil (test code = 8101) KATHRYN Vilchis(ASC P)[facility] PATHOLOGIST Dariusz London INTERPRETATION BY: (test code = 8122) LOCATION: (test code (NOTE) Specime ns processed at = [address]) [facility], [address] [place] [address], Phone: , CLIA: [id number] interpreted at [facility] [employer] [facility], [address],Pathology Department [facility], [place] Set on [facility], [place] [address], Phone: , CLIA: [id number] CPT: (test code = (NOTE) 94170, 881 41 UNLESS 8140) OTHERWISE INDIC ATED, [...] as applicable. HPV HIGH RISK WITH GENOTYPE, [id number] 18:42:54 Test Item Value Reference Range Interpretation Comments HPV HIGH RISK INTERP POSITIVE NEGATIVE A (test code = 15871) HPV 16 (test code = POSITIVE A 41578) HPV 18 (test code = NEGATIVE 92510) HPV, HR, OTHER NEGATIVE Testing meth odology is GENOTYPES (test code real-ti me PCR utilizing = 84488) hydrolysis prob es with the [employer] Anjelica 4800 system. The héctor t individually [...] ED ATCLINICAL PATH [facility], I [place]. [address] [place] [id number] LABORATORY DIRE CTOR: BAKARI SANTILLAN M.D. PABLOIA NUMBER [id number] [place] [id number]
[2022-09-16] MEDS ORDERED: PROMETHAZINE INJ 25 MG/ML AMP ONE ×2 (20:23→23:16)
[2022-09-16] MEDS ORDERED: NA CHLORIDE 0.9% 2,000 ML ONE (20:23)
[2022-09-16 20:42] LABS: Urine Blood Negative (Negative); Urine Glucose Negative (Negative); Urine Protein Negative (Negative)
[2022-09-16 20:48] LABS: Absolute Lymphocytes (CBC) 2.6 K/uL (0.7-4.9); Hematocrit 38.5 % (36.0-45.0); Lymphocytes % 32.7 % (15.3-44.8); MCV 85.7 fL (80-100); MPV 9.6 fL (7.6-11.3); RBC Red Blood Cell Count 4.49 M/uL (3.86-4.86)
[2022-09-16 21:03] LABS: Albumin 3.3 g/dL (3.4-5.0); Bilirubin Total 0.5 mg/dL (0.2-1.0); Potassium 3.4 mmol/L (3.5-5.1)
[2022-09-16 22:12] LABS: Urine Bacteria <20 /HPF (<20); Urine Crystals Unidentified Few /HPF (None Seen); Urine Mucus Slight /HPF (None Seen); Urine RBC <5 /HPF (None Seen)
--- NOTE | 2022-09-16 23:04 | ER ---
Nurse's Notes [facility] Name: Deniz Rivers Age: 31 yrs Sex: Female : 1990 Arrival Date: 09/16/2022 Time: 19:27 Bed 7 Private MD: Diagnosis: Hyperemesis Gravidarum Presentation: 09/16 19:59 Chief complaint: Patient states: Saw Mani ([employer]) this morning for hyper-emesis and 5 was prescribed promethazine suppository but I havent tried it. Before today he gave me promethazine and zofran but it's not helping as it should. I called his office back this afternoon and they told me to come to the ER because i cant keep anything down. I have vomited 5 times today. Coronavirus screen: Vaccine status: Patient reports receiving the 2nd dose of the covid vaccine. Client denies travel out of the [place] in the last 14 days. Ebola Screen: Patient negative for fever greater than or equal to 101.5 degrees Fahrenheit, and additional compatible Ebola Virus Disease symptoms Patient denies exposure to infectious person. Patient denies travel to an Ebola-affected area in the 21 days before illness onset. Initial Sepsis Screen: Does the patient meet any 2 criteria? No. Patient's initial sepsis screen is negative. Does the patient have a suspected source of infection? No. Patient's initial sepsis screen is negative. Risk Assessment: Do you want to hurt yourself or someone else? Patient reports no desire to harm self or others. Onset of symptoms was September 16, 2022. 19:59 Method Of Arrival: Ambulatory [facility] 19:59 Acuity: ANISHA 3 [facility] Triage Assessment: 20:02 General: Appears in no apparent distress. uncomfortable, Behavior is calm, cooperative, [facility] appropriate for age. Pain: Complains of pain in slight headache. GI: Reports nausea, vomiting. 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 - Social history:: Smoking status: Patient denies any tobacco usage or history of. - Family history:: not pertinent. Screenin:46 [facility] ED Fall Risk Assessment (Adult) Score/Fall Risk Level 0 - 2 = Low Risk. Abuse as6 screen: Denies threats or abuse. Denies injuries from another. Nutritional screening: No deficits noted. Tuberculosis screening: No symptoms or risk factors identified. Assessment: 20:44 General: Appears in no apparent distress. Behavior is calm, cooperative. Pain: as6 Complains of pain in head. Neuro: Level of Consciousness is awake, alert, obeys commands, Oriented to person, place, time, situation, Reports headache. Cardiovascular: Capillary refill < 3 seconds Patient's skin is warm and dry. Respiratory: Respiratory effort is even, unlabored, Respiratory pattern is regular, symmetrical. GI: Reports nausea, vomiting. 22:28 Reassessment: PT GIVEN FLUIDS FOR PO CHALLENGE. 7 22:41 Reassessment: PT TOLERATING SMALL SIPS OF WATER AT A TIME. [facility] Vital Signs: 19:59 BP 148 / 90; Pulse 93; Resp 18; Temp 98.6; Pulse Ox 100% ; Weight 78.93 kg; Height 5 [facility] ft. 2 in. (157.48 cm); Pain 4/10; 20:47 BP 116 / 74; Pulse 87; Resp 16 S; Pulse Ox 100% on R/A; as6 22:44 BP 117 / 57; Pulse 108; Resp 18 S; Pulse Ox 100% on R/A; as6 23:19 BP 97 / 74; Pulse 81; Resp 19 S; Pulse Ox 100% on R/A; as6 19:59 Body Mass Index 31.82 (78.93 kg, 157.48 cm) [facility] ED Course: 19:27 Patient arrived in ED. mr 19:35 Munir Augustin MD is Attending Physician. rt 20:02 Triage completed. jh5 20:02 Arm band placed on right wrist. 5 20:15 Leno Cope, DESMOND is Primary Nurse. as6 20:43 Inserted saline lock: 20 gauge in left antecubital area, using aseptic technique. as6 20:43 Lipase Sent. as6 20:43 CMP Sent. as6 20:43 CBC with Diff Sent. as6 20:47 Bed in low position. Call light in reach. Side rails up X 1. as6 23:19 No provider procedures requiring assistance completed. IV discontinued, intact, as6 bleeding controlled, No redness/swelling at site. Pressure dressing applied. Administered Medications: 20:43 Drug: Phenergan (promethazine) 12.5 mg Route: IVP; Site: left antecubital; as6 23:20 Follow up: Response: No adverse reaction as6 20:43 Drug: NS 0.9% 2000 ml Route: IV; Rate: 1 bolus; Site: left antecubital; as6 23:20 Follow up: Response: No adverse reaction; IV Status: Completed infusion; IV Intake: as6 2000ml 23:19 Drug: Phenergan (promethazine) 12.5 mg Route: IVP; Site: left antecubital; as6 23:20 Follow up: Response: No adverse reaction as6 Medication: 20:46 VIS not applicable for this client. as6 Intake: 23:20 IV: 2000ml; Total: 2000ml. as6 Outcome: 23:03 Discharge ordered by . rt 23:19 Discharged to home ambulatory, with significant other. as6 23:19 Condition: stable 23:19 Discharge instructions given to patient, Instructed on discharge instructions, follow up and referral plans. Demonstrated understanding of instructions, follow-up care. 23:31 Patient left the ED. as6 Signatures: Sandra Laura Jessica, RN RN jh5 Leno Cope RN RN as6 Karen Mullen RN RN jj7 Munir Augustin MD MD rt
--- NOTE | 2022-09-16 23:04 | EDPHYS ---
Physician Documentation [facility] Name: Deniz Rivers Age: 31 yrs Sex: Female : 1990 Arrival Date: 09/16/2022 Time: 19:27 Bed 7 Private MD: ED Physician Munir Augustin HPI: 09/16 20:18 This 31 yrs old Female presents to ER via Ambulatory with complaints of 12wks rt , Vomiting. 20:18 The patient presents to the emergency department with nausea, vomiting. Onset: The rt symptoms/episode began/occurred 1 month(s) ago. Possible causes: . The symptoms are aggravated by food , The symptoms are alleviated by prescription meds. Associated signs and symptoms: The patient has no apparent associated signs or symptoms. Severity of symptoms: At their worst the symptoms were moderate. Patient was about 12 weeks presents to the ED with continuance of nausea, vomiting. Patient received Phenergan suppositories, does not yet been able to fill them through the pharmacy. Continues to have nausea and vomiting states that she lost some weight due to the vomiting. Last took antiemetics about 4 hours ago. Denies other acute complaints at this time. Symptoms are moderate in severity, no other aggravating alleviating factors.. 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 - Social history:: Smoking status: Patient denies any tobacco usage or history of. - Family history:: not pertinent. ROS: 20:18 Constitutional: Negative for fever, chills, and weight loss, Eyes: Negative for injury, rt pain, redness, and discharge, ENT: Negative for injury, pain, and discharge, Neck: Negative for injury, pain, and swelling, Cardiovascular: Negative for chest pain, palpitations, and edema, Respiratory: Negative for shortness of breath, cough, wheezing, and pleuritic chest pain, : Negative for injury, bleeding, discharge, and swelling, MS/Extremity: Negative for injury and deformity, Skin: Negative for injury, rash, and discoloration, Neuro: Negative for headache, weakness, numbness, tingling, and seizure, Psych: Negative for depression, anxiety, suicide ideation, homicidal ideation, and hallucinations. 20:18 Abdomen/GI: Positive for nausea and vomiting, Negative for abdominal pain. Exam: 20:18 Constitutional: This is a well developed, well nourished patient who is awake, alert, rt and in no acute distress. Head/Face: Normocephalic, atraumatic. Eyes: Pupils equal round and reactive to light, extra-ocular motions intact. Lids and lashes normal. Conjunctiva and sclera are non-icteric and not injected. Cornea within normal limits. Periorbital areas with no swelling, redness, or edema. Chest/axilla: Normal chest wall appearance and motion. Nontender with no deformity. No lesions are appreciated. Cardiovascular: Regular rate and rhythm with a normal S1 and S2. No gallops, murmurs, or rubs. Normal PMI, no JVD. No pulse deficits. Respiratory: Lungs have equal breath sounds bilaterally, clear to auscultation and percussion. No rales, rhonchi or wheezes noted. No increased work of breathing, no retractions or nasal flaring. Abdomen/GI: Soft, non-tender, with normal bowel sounds. No distension or tympany. No guarding or rebound. No evidence of tenderness throughout. Skin: Warm, dry with normal turgor. Normal color with no rashes, no lesions, and no evidence of cellulitis. MS/ Extremity: Pulses equal, no cyanosis. Neurovascular intact. Full, normal range of motion. Neuro: Awake and alert, GCS 15, oriented to person, place, time, and situation. Cranial nerves II-XII grossly intact. Motor strength 5/5 in all extremities. Sensory grossly intact. Cerebellar exam normal. Normal gait. Psych: Awake, alert, with orientation to person, place and time. Behavior, mood, and affect are within normal limits. Vital Signs: 19:59 BP 148 / 90; Pulse 93; Resp 18; Temp 98.6; Pulse Ox 100% ; Weight 78.93 kg; Height 5 jh5 ft. 2 in. (157.48 cm); Pain 4/10; 20:47 BP 116 / 74; Pulse 87; Resp 16 S; Pulse Ox 100% on R/A; as6 22:44 BP 117 / 57; Pulse 108; Resp 18 S; Pulse Ox 100% on R/A; as6 23:19 BP 97 / 74; Pulse 81; Resp 19 S; Pulse Ox 100% on R/A; as6 19:59 Body Mass Index 31.82 (78.93 kg, 157.48 cm) jh5 MDM: 20:08 Patient medically screened. rt 23:26 Differential diagnosis: Emesis gravidarum, electrolyte disturbance, UTI. Data reviewed: rt vital signs, nurses notes, lab test result(s). I considered the following discharge prescriptions or medication management in the emergency department Antibiotics: At this time antibiotics are not recommended. Historians other than the Patient: Spouse/Significant Other: . Response to treatment: the patient's symptoms have mildly improved after treatment. ED course: Patient with hyperemesis gravidarum presents to the ED with continued nausea and vomiting. She recently completed treatment for UTI, no bacteria in the urine, she has no urinary symptoms at this time, despite leukocytes in the urine, I do not believe that she has an active UTI, do not believe that she is likely to benefit from further antibiotic dosing. Discussed diclegis with the patient. He is improving, p.o. tolerant in the ED, she is stable for outpatient care, return precautions discussed.. 09/16 20:09 Order name: CBC with Diff; Complete Time: 21:28 rt 09/16 20:09 Order name: CMP; Complete Time: 21:28 rt 09/16 20:09 Order name: Lipase; Complete Time: 21:28 rt 09/16 20:43 Order name: Urine Dipstick-Ancillary; Complete Time: 21:28 EDMS 09/16 21:29 Order name: UA MICROSCOPIC; Complete Time: 22:15 rt 09/16 22:16 Order name: Urine Culture EDMS 09/16 20:09 Order name: Urine Dipstick-Ancillary (obtain specimen); Complete Time: 20:42 rt Administered Medications: 20:43 Drug: Phenergan (promethazine) 12.5 mg Route: IVP; Site: left antecubital; as6 23:20 Follow up: Response: No adverse reaction as6 20:43 Drug: NS 0.9% 2000 ml Route: IV; Rate: 1 bolus; Site: left antecubital; as6 23:20 Follow up: Response: No adverse reaction; IV Status: Completed infusion; IV Intake: as6 1999ml 23:19 Drug: Phenergan (promethazine) 12.5 mg Route: IVP; Site: left antecubital; as6 23:20 Follow up: Response: No adverse reaction as6 Disposition Summary: 09/16/22 23:03 Discharge Ordered Location: Home rt Problem: an ongoing problem rt Symptoms: have improved rt Condition: Stable rt Diagnosis - Hyperemesis Gravidarum rt Followup: rt - With: Private Physician - When: 2 - 3 days - Reason: Discharge Instructions: - Discharge Summary Sheet rt - Hyperemesis Gravidarum rt Forms: - Medication Reconciliation Form rt - Thank You Letter rt - Antibiotic Education rt - Prescription Opioid Use rt Signatures: Dispatcher [employer] Maddie Early RN RN jh5 Leno Cope RN RN as6 Muinr Augustin MD MD rt
[2022-09-16 23:37] VITALS: TEMP 98.6; O2SAT 100
[2022-09-16 23:41] VITALS: BP 97/74
== END 2022-09-16 23:31 | disposition home or self-care (01) ==
LOC: ER 19:24
DX: O21.0 Mild hyperemesis gravidarum (principal); Z3A.12 12 weeks gestation of pregnancy
CPT/HCPCS: 87088; 85025; 87086; 36415; 83690; 80053; J2550 ×2; J7030; 81003; 81015; 96361; 96374; 99284

== ENCOUNTER 2022-10-04 21:38 | Emergency (ER) | payer OTHER ==
--- OUTSIDE RECORDS SUMMARY | 2022-10-04 21:42 | XMS REPORT | Continuity of Care Document ---
:1990 Author Organization [facility] t Address [address] [place] [address] [address] [place] [address] Care Team Providers Name Role Phone Unavailable [...] Clinicians Facility Department ID 2022-07-18 2022-07-18 Outpatient [facility] [id number] Emil 08:51:37 08:51:37 [address] [place] Results Test Description Test Time Test Comments Results Result Comments Source TSH, THIRD GENERATION 2022-04-05 09:45:16 Test Item Value Reference Range Interpretation Comme nts TSH, THIRD GENERATION (test 2.180 UIU/ML 0.400-4.100 UNLESS OTHERWISE INDICATED, code = 2821) ALL TESTING PER FORMED [facility] PATH [facility] [place] [address] [address] GENERAL ASSEMBLER INSTALLER: Gurmeet GARCIA [id number] [facility] [id number] HEMOGLOBIN [id number] 08:28:05 Test Item Value Reference Range Interpretation Comments HEMOGLOBIN A1c (test code = 55760) 5.7 % 4.2-5.6 H CBC W/AUTO DIFF WITH [id number] 07:50:55 Test Item Value Reference Range Interpretation [...] RBCS 0.00 K/UL 0.00-0.11 (test code = 20440) COMPREHENSIVE METABOLIC [id number] 05:42:59 Test Item Value Reference Range Interpretation Comments GLUCOSE (test code = 68 MG/DL 70-99 L 2216) BUN (test code = 9 MG/DL 6-20 2207) CREATININE (test 0.81 MG/DL 0.60-1.30 code = 2214) eGFR (2020 CKD-EPI) 99 ML/MIN/1.73 >60 (test code = 70105) CALC BUN/CREAT (test 11 RATIO 6-28 code = 2235) SODIUM (test code = 143 MEQ/L 827-495 4386) POTASSIUM (test code 4.2 MEQ/L 3.5-5.4 = [...] code = 16 U/L 5-40 2218) LIPID [id number] 05:42:59 Test Item Value Reference Range Interpretation [...] MOREINFORMATION , SEE CLIENT ANNOUNCE MENT AT [email or web address] RISK RATIO LDL/HDL 2.59 RATIO <3.22 (test code = 223) PAP TEST, THINPREP, [id number] 17:32:45 Test Item Value Reference Range Interpretation Comments SOURCE: (test code = Cervical/Endo 8001) cervical SLIDES: (test code = 1 8011) LMP: (test code = 03/05/2022 8021) SPECIMEN ADEQUACY: (NOTE) Satisfac tory for (test code = 60512) evaluati on. Endocervical cells/transform ation zone component present. INTERPRETATION: LSIL/EPITH. A (test code = 26775) ABNORMALITY; -------- SEE BELOW ------- ---- EPITHE LIAL CELL ABNORMALIT Y Low Grade Squam ous Intraepithelial Lesion (LSIL) ------- ------- ------- ---- COMPUTER OPERATOR: Emil (test code = 8101) KATHRYN Vilchis(ASC P)[facility] PATHOLOGIST Dariusz London INTERPRETATION BY: (test code = 8122) LOCATION: (test code (NOTE) [place]ime [place] processed at = [address]) [facility], [address] [place] [address], Phone: , CLIA: [id number] interpreted at [facility], [address] [place],Pathology Department [facility], [place] Set on [facility], [place] [address], Phone: , CLIA: [id number] CPT: (test code = (NOTE) 25978, 881 41 UNLESS 8140) OTHERWISE INDIC ATED, [...] as applicable. HPV HIGH RISK WITH GENOTYPE, [id number] 18:42:54 Test Item Value Reference Range Interpretation Comments HPV HIGH RISK INTERP POSITIVE NEGATIVE A (test code = 72762) HPV 16 (test code = POSITIVE A 80364) HPV 18 (test code = NEGATIVE 51423) HPV, HR, OTHER NEGATIVE Testing meth odology is GENOTYPES (test code real-ti me PCR utilizing = 87723) hydrolysis prob es with the Flywheel Anjelica 4800 system. The héctor t individually [...] ED ATCLINICAL PATH OLOGY LABORATORIES, [place]. [address] [place] [address] LABORATORY DIRE CTOR: BAKARI SANTILLAN M.D. PABLOIA NUMBER [id number] [place] [id number]
[2022-10-04 22:31] LABS: Absolute Lymphocytes (CBC) 2.8 K/uL (0.7-4.9); Hematocrit 36.1 % (36.0-45.0); Lymphocytes % 30.9 % (15.3-44.8); MCV 86.2 fL (80-100); RBC Red Blood Cell Count 4.19 M/uL (3.86-4.86)
--- NOTE | 2022-10-04 23:10 | ER ---
Nurse's Notes [facility] Name: Deniz Rivers Age: 32 yrs Sex: Female : 1990 Arrival Date: 10/04/2022 Time: 21:42 Bed 14 Private MD: Diagnosis: Vomiting;Vomiting of , unspecified;15 weeks gestation of Presentation: 10/04 21:47 Chief complaint: Patient states: 15 weeks with really bad morning sickness. lg3 this morning i started vomiting blood but went back to sleep. vomited again this afternoon with no blood but i vomited again about an hour ago and there was blood again. Coronavirus screen: Client denies travel out of the [place] in the last 14 days. At this time, the client does not indicate any symptoms associated with coronavirus-19. Ebola Screen: No symptoms or risks identified at this time. Initial Sepsis Screen: Does the patient meet any 2 criteria? No. Patient's initial sepsis screen is negative. Does the patient have a suspected source of infection? No. Patient's initial sepsis screen is negative. Risk Assessment: Do you want to hurt yourself or someone else? Patient reports no desire to harm self or others. Onset of symptoms was October 04, 2022. 21:47 Method Of Arrival: Ambulatory lg3 21:47 Acuity: ANISHA 3 lg3 Triage Assessment: 21:50 General: Appears in no apparent distress. comfortable, Behavior is calm, cooperative. lg3 Pain: Complains of pain in pelvis Quality of pain is described as crampy. 21:50 EENT: No deficits noted. No signs and/or symptoms were reported regarding the EENT lg3 system. Neuro: No deficits noted. Trevino Agitation-Sedation Scale (RASS): 0 - Alert and Calm Level of Consciousness is awake, alert, obeys commands, Oriented to person, place, time, situation. Cardiovascular: No deficits noted. Denies chest pain, shortness of breath, Capillary refill < 3 seconds Clubbing of nail beds is absent JVD is absent Patient's skin is warm and dry. Respiratory: No deficits noted. Airway is patent Trachea midline Respiratory effort is even, unlabored, Respiratory pattern is regular, symmetrical. GI: Abdomen is flat, non-distended, Reports lower abdominal pain, upper abdominal pain, cramping, vomiting. : No deficits noted. No signs and/or symptoms were reported regarding the genitourinary system. Derm: No deficits noted. No signs and/or symptoms reported regarding the dermatologic system. Skin is intact, is healthy with good turgor, Skin is dry, Skin is normal. Musculoskeletal: No deficits noted. No signs and/or symptoms reported regarding the musculoskeletal system. Circulation, motion, and sensation intact. Range of motion: intact in all extremities. 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 - Social history:: Smoking status: Patient denies any tobacco usage or history of. Patient/guardian denies using alcohol, street drugs. Screenin:11 Abuse screen: Denies threats or abuse. Nutritional screening: No deficits noted. ke1 Tuberculosis screening: No symptoms or risk factors identified. 23:21 [facility] ED Fall Risk Assessment (Adult) History of falling in the last 3 months, ke1 including since admission No falls in past 3 months (0 pts) Confusion or Disorientation No (0 pts) Intoxicated or Sedated No (0 pts) Impaired Gait No (0 pts) Mobility Assist Device Used No (0 pt) Altered Elimination No (0 pt) Score/Fall Risk Level 0 - 2 = Low Risk. Vital Signs: 21:47 BP 121 / 88; Pulse 90; Resp 17 S; Temp 98.2(TE); Pulse Ox 100% ; Weight 78.02 kg (R); lg3 Height 5 ft. 2 in. (157.48 cm) (R); Pain 0/10; 21:47 Body Mass Index 31.46 (78.02 kg, 157.48 cm) lg3 Vitals: 23:10 Heart Tones 140. ke1 ED Course: 21:42 Patient arrived in ED. ja2 21:50 Triage completed. lg3 21:50 Arm band placed on right wrist. EKG completed in triage. Results shown to MD. lg3 21:51 Cuco Steiner DO is Attending Physician. ms3 21:56 Trung Rawls, RN is Primary Nurse. ke1 22:26 CBC with Diff Sent. ke1 23:08 Octaviano Christianson MD is Referral Physician. ms3 23:21 No provider procedures requiring assistance completed. IV discontinued. ke1 23:22 Bed in low position. Call light in reach. ke1 Administered Medications: No medications were administered Medication: 23:11 VIS not applicable for this client. ke1 Outcome: 23:09 Discharge ordered by . ms3 23:21 Discharged to home ambulatory. ke1 23:21 Condition: good 23:21 Discharge instructions given to patient. 23:22 Patient left the ED. ke1 Signatures: Razia De Souza, RN RN 3 Cuco Steiner DO DO ms3 Maddie Jackson ja2 Trung Rawls, DESMOND RN ke1
--- NOTE | 2022-10-04 23:10 | EDPHYS ---
Physician Documentation [facility] Name: Deniz Rivers Age: 32 yrs Sex: Female : 1990 Arrival Date: 10/04/2022 Time: 21:42 Bed 14 Private MD: ED Physician Cuco Steiner HPI: 10/04 23:09 This 32 yrs old Female presents to ER via Ambulatory with complaints of ms3 Vomiting. 23:09 32-year-old female at 15 weeks gestation presents for emesis that began this morning. ms3 Patient states she noted blood streaking in the vomit. Patient states she has vomited a total of 3 times. Patient denies symptoms at this time.. 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 - Social history:: Smoking status: Patient denies any tobacco usage or history of. Patient/guardian denies using alcohol, street drugs. ROS: 23:09 Constitutional: Negative for fever, and chills. Neck: Negative for injury, pain, and ms3 swelling, Cardiovascular: Negative for chest pain, and palpitations. Respiratory: Negative for shortness of breath, cough, wheezing, and pleuritic chest pain. 23:09 MS/Extremity: Negative for injury and deformity, Skin: Negative for injury, rash, and discoloration. 23:09 Abdomen/GI: Positive for nausea and vomiting. 23:09 All other systems are negative. Exam: 23:09 Constitutional: This is a well developed, well nourished patient who is awake, alert, ms3 and in no acute distress. Head/Face: Normocephalic, atraumatic. Neck: Trachea midline, no cervical lymphadenopathy. Supple, full range of motion without nuchal rigidity, or vertebral point tenderness. No Meningismus. Chest/axilla: Normal chest wall appearance and motion. Nontender with no deformity. Cardiovascular: Regular rate and rhythm with a normal S1 and S2. No gallops, murmurs, or rubs. Normal PMI, no JVD. No pulse deficits. Respiratory: Lungs have equal breath sounds bilaterally, clear to auscultation and percussion. No rales, rhonchi or wheezes noted. No increased work of breathing, no retractions or nasal flaring. Abdomen/GI: Soft, non-tender, with normal bowel sounds. No distension or tympany. No guarding or rebound. No evidence of tenderness throughout. Skin: Warm, dry with normal turgor. Normal color with no rashes, no lesions, and no evidence of cellulitis. MS/ Extremity: Pulses equal, no cyanosis. Neurovascular intact. Full, normal range of motion. Vital Signs: 21:47 BP 121 / 88; Pulse 90; Resp 17 S; Temp 98.2(TE); Pulse Ox 100% ; Weight 78.02 kg (R); lg3 Height 5 ft. 2 in. (157.48 cm) (R); Pain 0/10; 21:47 Body Mass Index 31.46 (78.02 kg, 157.48 cm) lg3 MDM: 22:14 Patient medically screened. ms3 23:09 Differential diagnosis: Nonspecific abd pain, gastritis, viral gastroenteritis. Data ms3 reviewed: vital signs, nurses notes, lab test result(s), and as a result, I will discharge patient. I considered the following discharge prescriptions or medication management in the emergency department Patient states she has Phenergan suppositories at home. Counseling: I had a detailed discussion with the patient and/or guardian regarding: the historical points, exam findings, and any diagnostic results supporting the discharge/admit diagnosis, lab results, the need for outpatient follow up, to return to the emergency department if symptoms worsen or persist or if there are any questions or concerns that arise at home. ED course: Discussed CBC results with patient. Patient remains asymptomatic in the emergency department. Patient to follow-up with Dr. Christianson in 2 to 3 days. Patient understands and agrees with plan. All questions were answered. Return precautions discussed include worsening symptoms, or any other concerns. 10/04 22:14 Order name: CBC with Diff; Complete Time: 22:41 ms3 Administered Medications: No medications were administered Disposition Summary: 10/04/22 23:09 Discharge Ordered Location: Home ms3 Condition: Stable ms3 Diagnosis - Vomiting ms3 - Vomiting of , unspecified ms3 - 15 weeks gestation of ms3 Followup: ms3 - With: Octaviano Christianson MD - When: 2 - 3 days - Reason: Recheck today's complaints Discharge Instructions: - Discharge Summary Sheet ms3 - Nausea and Vomiting, Adult ms3 Forms: - Medication Reconciliation Form ms3 - Thank You Letter ms3 - Antibiotic Education ms3 - Prescription Opioid Use ms3 Signatures: Dispatcher [employer] Razia Villanueva, RN RN lg3 Cuco Steiner, DO ms3
[2022-10-05 00:16] VITALS: BP 121/88; TEMP 98.2; O2SAT 100
== END 2022-10-04 23:22 | disposition home or self-care (01) ==
LOC: ER 21:38
DX: O21.9 Vomiting of pregnancy, unspecified (principal); Z3A.15 15 weeks gestation of pregnancy
CPT/HCPCS: 36415; 85025; 99283

== ENCOUNTER 2023-02-01 10:41 | Emergency (ER) | payer OTHER ==
--- OUTSIDE RECORDS SUMMARY | 2023-02-01 10:46 | XMS REPORT | Continuity of Care Document ---
:1990 Author Organization [facility] Address [address] [place] [address] [address] [place] [address] Care Team Providers Name Role Phone Pcp, Patient Does Not Have A Primary Care Physician [phone] MARCEL GODINEZ Attending Clinician Unavailable MARCEL GODINEZ Attending Clinician Unavailable ASHLEY YOU Attending Clinician Unavailable Ashley You MD Attending Clinician Doctor Unassigned, Childress Attending Clinician Unavailable 1, Adc Lab Attending Clinician Unavailable Lab, Ang - Db Attending Clinician Unavailable CHRIS MOONEY Attending Clinician Unavailable Chris Mooney MD Attending Clinician 1, Lkj Nst Room Attending Clinician Unavailable OBDULIO BENITEZ Attending Clinician Unavailable Obdulio Benitez MD Attending Clinician 1, Pea-m Room Attending Clinician Unavailable Kannan Cade MD Attending Clinician [phone] KANNAN CADE Attending Clinician Unavailable Nadege Mack MD Attending Clinician Macy Browning DO Attending Clinician MACY BROWNING Attending Clinician Unavailable ASHLEY YOU Admitting Clinician Unavailable OBDULIO BENITEZ Admitting Clinician Unavailable Ashley You MD Admitting Clinician Obdulio Benitez MD Admitting Clinician Payers Payer Name Policy Type Policy Number Effective Date Expiration Date [facility] [id number] 2022 00:00:00 Problems Condition Condition Condition Status Onset Resolution Last Treating Co mments Source Name Details Category Date Date Treatment Clinician Date Decreased Decreased Disease Active Uni vers 4-27 ity of movements movements 00:00: [place]anna s in second in second 00 [facility] trimester, trimester, Br anch single or single or unspecifie unspecifie d fetus d fetus 27 weeks 27 weeks Disease Active Unive rs gestation gestation 4-27 ity of of of 00:00: [place] 00 [facility] Branch Obesity Obesity Disease Active Univers (BMI (BMI 4-18 ity of 30-39.9) 30-39.9) 00:00: [address] History of History of Disease Active U nivers prior prior 2-13 ity of 00:00: [place] s with short with short 00 Me dical cervix, cervix, Branch currently currently Disease Active Uni vers screening screening 2-13 ity of for for 00:00: [place] malformati malformati 00 Me dical on using on using Branch ultrasonic ultrasonic s s Supervisio Supervisio Disease Active U nivers n of other n of other 2-13 it y of high risk high risk 00:00: [place] s , , 00 Me dical antepartum antepartum Br anch Mild Mild Disease Active Univers hyperemesi hyperemesi 2-13 it y of s s 00:00: [place] gravidarum gravidarum 00 Me dical , , Branch antepartum antepartum Allergies, Adverse Reactions, Alerts Allergy Allergy Status Severity Reaction(s) Onset Inactive Treating Comm ents Source Name Type Date Date Clinician NO KNOWN Drug Active Univers ALLERGIE Class ity of S [facility] Social History Social Habit Start Date Stop Date Quantity Comments Source ASSERTION 2022-07-07 University 00:00:00 [facility] Exposure to 2023-01-20 2023-01-30 Not sure University -CoV-2 00:00:00 18:39:00 [facility] (event) Branch Alcohol intake 2023-01-13 2023-01-13 Lifetime University of 00:00:00 00:00:00 non-drinker [facility] (finding) Branch Tobacco use and 2022-10-21 2022-10-21 Smokeless tobacco Un iversity of exposure 00:00:00 00:00:00 non-user [facility] Sex Assigned At [birth year] Universit y of 00:00:00 00:00:00 [facility] Smoking Status Start Date Stop Date Source Tobacco smoking consumption [facility] unknown Branch Never smoked tobacco [facility] Medications Ordered Filled Start Stop Current Ordering Indication Dosage Frequency Signature Comments Components Source Medication Medication Date Date Medication? Clinician (SIG) Name Name NaCl 0.9% 0 Yes 1000mL at 999 Univ ers (NS) IV 5-26 mL/hr, IV [place] of infusion 02:30[place] 00 CONTINUOUS Medic al , Starting Branch on [facility] 01/30/23 at 2130, Until Discontinu ed, Routine acetaminoph 2022-0 Yes 1000mg 1,000 mg, Univers en 5- Oral, ity of (TYLENOL) 02:22: Q6HPRN, [place] tablet 34 Starting Medical 1,000 mg on [facility] Branch 01/30/23 at 2122, Until Discontinu ed, Routine, Pain (scale 4-6) metoclopram 2022-0 Yes 10mg Take 1 Univ ers aries HCl 10 5-26 tablet by ity of mg tablet 02:03: mouth in [facility] s 54 the Medical morning Branch and 1 tablet at noon and 1 tablet in the evening. Take before meals. ondansetron 2022-0 Yes 4mg Take 1 [facility] ers 4 mg tablet 5-26 tablet by ity of 02:03: mouth [place] [address] every 8 Medical (eight) Branch hours as needed. 0 Yes Take by Univer s 25/iron 5-26 mouth. ity of fum/folic/d 02:03: [facility] 54 Medical (-1 Branch ORAL) NaCl 0.9% 2022-0 Yes 1000mL at 999 Univ ers (NS) IV 5-26 mL/hr, IV ity of infusion 01:15: [place] 1,000 mL 00 CONTINUOUS Medic al , Starting Branch on [facility] 01/30/23 at 2015, Until Discontinu ed, Routine ondansetron 2022-0 2022- No 4mg 4 mg, Slow Univers (ZOFRAN 5-26 05-26 IV Push, ity of (PF)) 01:00: 00:33 ONCE, On [place] injection 4 00 :00 [place] [facility] mg 01/30/23 at Branch 2000, For 1 dose
Do ses of ondansetro n 16 mg and above need to be administer ed via IV piggyback. For Dose >=24mg ECG monitoring is advisable.
ascorbic 2022-0 Yes [id number] 500mg Take 1 U nivers acid, 5-09 tablet by ity of vitamin C, 00:00: mouth in [place] 500 mg 00 the Medical tablet morning Branch and 1 tablet in the evening. ferrous 2022-0 Yes [id number] 325mg Take 1 Un anne sulfate 5-09 tablet by ity of (IRON, 00:00: mouth in [place] FERROUS 00 the Medical SULFATE,) morning Branch 325 mg (65 and 1 mg iron) tablet in tablet the evening. omeprazole 2022-0 Yes [id number] 20mg Take 1 Univers 20 mg 5-09 capsule by ity of capsule 00:00: mouth in [place] 00 the Medical morning. Branch aspirin 81 2022-0 Yes [id number] 81mg Take 1 Univers mg EC 5-09 tablet by ity of tablet 00:00: mouth in [place] 00 the Medical morning. Branch ascorbic 2022-0 Yes [id number] 500mg Take 1 U nivers acid, 5-09 tablet by ity of vitamin C, 00:00: mouth in [place] 500 mg 00 the Medical tablet morning Branch and 1 tablet in the evening. ferrous 2022-0 Yes [id number] 325mg Take 1 Un anne sulfate 5-09 tablet by ity of (IRON, 00:00: mouth in [place] F[place]OUS 00 the Medical SULFATE,) morning Branch 325 mg (65 and 1 mg iron) tablet in tablet the evening. omeprazole 2022-0 Yes [id number] 20mg Take 1 Univers 20 mg 5-09 capsule by ity of capsule 00:00: mouth in [place] 00 the Medical morning. Branch aspirin 81 2022-0 Yes [id number] 81mg Take 1 Univers mg EC 5-09 tablet by ity of tablet 00:00: mouth in [place] 00 the Medical morning. Branch ascorbic 2022-0 Yes [id number] 500mg Take 1 U nivers acid, 5-09 tablet by ity of vitamin C, 00:00: mouth in [place] 500 mg 00 the Medical tablet morning Branch and 1 tablet in the evening. ferrous 2023-0 Yes [id number] 325mg Take 1 Un anne sulfate 5-09 tablet by ity of (IRON, 00:00: mouth in [place] FERROUS 00 the Medical SULFATE,) morning Branch 325 mg (65 and 1 mg iron) tablet in tablet the evening. omeprazole 2023-0 Yes 20mg Take 1 Univers 20 mg 5-09 capsule by ity of capsule 00:00: mouth in [place] 00 the Medical morning. Branch aspirin 81 2022-0 Yes [id number] 81mg Take 1 Univers mg EC 5-09 tablet by ity of tablet 00:00: mouth in [place] 00 the Medical morning. Branch ascorbic 2023-0 Yes 500mg Take 1 U nivers acid, 5-09 tablet by ity of vitamin C, 00:00: mouth in [facility] as 500 mg 00 the Medical tablet morning Branch and 1 tablet in the evening. ferrous 2023-0 Yes [id number] 325mg Take 1 Un anne sulfate 5-09 tablet by ity of (IRON, 00:00: mouth in [place] FERROUS 00 the Medical SULFATE,) morning Branch 325 mg (65 and 1 mg iron) tablet in tablet the evening. omeprazole 2023-0 Yes 20mg Take 1 Univers 20 mg 5-09 capsule by ity of capsule 00:00: mouth in [place] 00 the Medical morning. Branch aspirin 81 3-0 Yes [id number] 81mg Take 1 Univers mg EC 5-09 tablet by ity of tablet 00:00: mouth in [place] 00 the Medical morning. Branch metoclopram 2023-0 Yes 10mg Take 1 Univ ers aries HCl 10 5-08 tablet by ity of mg tablet 10:26: mouth in [place] [address] the Medical morning Branch and 1 tablet at noon and 1 tablet in the evening. Take before meals. ondansetron 2023-0 Yes 4mg Take 1 Univ ers 4 mg tablet 5-08 tablet by ity of 10:26: mouth [place] 20 every 8 Medical (eight) Branch hours as needed. metoclopram 2023-0 Yes 10mg Take 1 Univ ers aries HCl 10 5-08 tablet by ity of mg tablet 10:26: mouth in [facility] 20 the Medical morning Branch and 1 tablet at noon and 1 tablet in the evening. Take before meals. ondansetron 2023-0 Yes 4mg Take 1 Univ ers 4 mg tablet 5-08 tablet by ity of 10:26: mouth [place] 20 every 8 Medical (eight) Branch hours as needed. metoclopram 2023-0 Yes 10mg Take 1 Univ ers aries HCl 10 5-08 tablet by ity of mg tablet 10:26: mouth in [facility] 20 the [facility] morning Branch and 1 tablet at noon and 1 tablet in the evening. Take before meals. ondansetron 2023-0 Yes 4mg Take 1 Univ ers 4 mg tablet 5-08 tablet by ity of 10:26: mouth [place] 20 every 8 Medical (eight) Branch hours as needed. metoclopram 2023-0 Yes 10mg Take 1 Univ ers aries HCl 10 5-08 tablet by ity of mg tablet 10:26: mouth in [facility] 20 the [facility] morning Branch and 1 tablet at noon and 1 tablet in the evening. Take before meals. ondansetron 2023-0 Yes 4mg Take 1 Univ ers 4 mg tablet 5-08 tablet by ity of 10:26: mouth [place] 20 every 8 Medical (eight) Branch hours as needed. metoclopram 2023-0 Yes 10mg Take 1 Univ ers aries HCl 10 5-08 tablet by ity of mg tablet 10:26: mouth in [place] [address] the [facility] morning Branch and 1 tablet at noon and 1 tablet in the evening. Take before meals. ondansetron 2023-0 Yes 4mg Take 1 Univ ers 4 mg tablet 5-08 tablet by ity of 10:26: mouth [place] 20 every 8 [facility] Branch hours as needed. omeprazole 2023-0 Yes [id number] 20mg Take 1 Univers 20 mg 5-08 capsule by ity of capsule 00:00: mouth in [place] 00 the Medical morning. Branch aspirin 81 2023-0 Yes [id number] 81mg Take 1 Univers mg EC 5-08 tablet by ity of tablet 00:00: mouth in [place] 00 the Medical morning. Branch omeprazole 2023-0 Yes [id number] 20mg Take 1 Univers 20 mg 5-08 capsule by ity of capsule 00:00: mouth in [place] 00 the Medical morning. Branch aspirin 81 2023-0 Yes [id number] 81mg Take 1 Univers mg EC 5-08 tablet by ity of tablet 00:00: mouth in [place] 00 the Medical morning. Branch ferrous Yes 325mg Take 1 Un anne sulfate 5-08 tablet by ity of (IRON, 00:00: mouth in [place] FERROUS 00 the Medical SULFATE,) morning Branch 325 mg (65 and 1 mg iron) tablet in tablet the evening. ascorbic Yes 500mg Take 1 U nivers acid, 5-08 tablet by ity of vitamin C, 00:00: mouth in [place] 500 mg 00 the Medical tablet morning Branch and 1 tablet in the evening. omeprazole 2022- No [id number] 20mg Take 1 Univers 20 mg 01-13- capsule by ity of capsule 00:00: 00:00 mouth in [place] 00 :00 the Medical morning. Branch aspirin 81 2022- No [id number] 81mg Take 1 Univers mg EC 01-13-09 tablet by ity of tablet 00:00: 00:00 mouth in [place] 00 :00 the Medical morning. Branch ferrous 2022- No [id number] 325mg Take 1 U nivers sulfate 01-13-09 tablet by ity of (IRON, 00:00: 00:00 mouth in [place] FERROUS 00 :00 the Medical SULFATE,) morning Branch 325 mg (65 and 1 mg iron) tablet in tablet the evening. ascorbic 2022-2022- No [id number] 500mg Take 1 Univers acid, 01-13-09 tablet by ity of vitamin C, 00:00: 00:00 mouth in [place] 500 mg 00 :00 the Medical tablet morning Branch and 1 tablet in the evening. NaCl 0.9% 2022- No 500mL at 999 [facility] ers (NS) bolus 01-12-07 mL/hr, 500 it y of infusion 07:00: 08:00 mL, IV [place] 500 mL 00 :00 Piggyback, Medical ONCE, 1 [place] dose, On 01/12/23 at 0200, STAT ondansetron 2022- No 4mg 4 mg, Slow Univers (ZOFRAN 01-12-07 IV Push, ity of (PF)) 06:15: 06:45 ONCE, 1 [place] injection 4 00 :00 dose, On Medi [place] mg 01/12/23 Branch at 0115, RANDAL sucralfate 2023-0 Yes [id number] 1g Take 1 Univers 1 gram 5-07 tablet by ity of tablet 00:00: mouth in [place] [address] the Medical morning [place] and 1 tablet in the evening. sucralfate 2023-0 Yes [id number] 1g Take 1 Univers 1 gram 5-07 tablet by ity of tablet 00:00: mouth in [place] [address] the Medical morning [place] and 1 tablet in the evening. sucralfate 2023-0 Yes [id number] 1g Take 1 Univers 1 gram 5-07 tablet by ity of tablet 00:00: mouth in [place] [address] the Medical morning [place] and 1 tablet in the evening. sucralfate 2023-0 Yes [id number] 1g Take 1 Univers 1 gram 5-07 tablet by ity of tablet 00:00: mouth in [place] [address] the [facility] morning [place] and 1 tablet in the evening. sucralfate 2023-0 Yes [id number] 1g Take 1 Univers 1 gram 5-07 tablet by ity of tablet 00:00: mouth in [place] [address] the [facility] morning [place] and 1 tablet in the evening. sucralfate 2023-0 Yes [id number] 1g Take 1 Univers 1 gram 5-07 tablet by ity of tablet 00:00: mouth in [place] [address] the Medical morning [place] and 1 tablet in the evening. sucralfate 2023-0 Yes [id number] 1g Take 1 Univers 1 gram 5-07 tablet by ity of tablet 00:00: mouth in [place] [address] the [facility] morning [place] and 1 tablet in the evening. sucralfate 2023-0 Yes [id number] 1g Take 1 Univers 1 gram 5-07 tablet by ity of tablet 00:00: mouth in [place] [address] the [facility] morning [place] and 1 tablet in the evening. metoclopram 2023-0 Yes 10mg Take 10 mg Univers aries HCl 4-18 by mouth ity of (REGLAN) 10 01:56: in the [facility] s mg tablet 17 morning Medical and 10 mg [place] at noon and 10 mg in the evening. Take before meals. ondansetron 2023-0 Yes 4mg Take 4 mg U nivers 4 mg tablet 4-18 by mouth ity of 01:56: every 8 [place] 17 (eight) Medical hours as Branch needed. 2023-0 Yes Take by Univ s 25/iron 4-18 mouth. ity of fum/folic/d 01:56: [facility] 17 Medical (-1 Branch ORAL) metoclopram 2023-0 Yes 10mg Take 10 mg Univers aries HCl 4-18 by mouth ity of (REGLAN) 10 01:56: [place] mg tablet 17 morning Medical and 10 mg Branch at noon and 10 mg in the evening. Take before meals. ondansetron 2023-0 Yes 4mg Take 4 mg U nivers 4 mg tablet 4-18 by mouth ity of 01:56: every 8 [place] [address] (eight) Medical hours as Branch needed. 2022-0 Yes Take by Univer s 25/iron 4-18 mouth. ity of fum/folic/d 01:56: [facility] 17 Medical (-1 Branch ORAL) metoclopram 2023-0 Yes 10mg Take 10 mg Univers aries HCl 4-18 by mouth ity of (REGLAN) 10 01:56: [place] mg tablet 17 morning Medical and 10 mg Branch at noon and 10 mg in the evening. Take before meals. ondansetron 2023-0 Yes 4mg Take 4 mg U nivers 4 mg tablet 4-18 by mouth ity of 01:56: every 8 [place] [address] (eight) Medical hours as Branch needed. 2022-0 Yes Take by Univer s 25/iron 4-18 mouth. ity of fum/folic/d 01:56: [place] [address] Medical (-1 Branch ORAL) metoclopram 2023-0 Yes 10mg Take 10 mg Univers aries HCl 4-18 by mouth ity of (REGLAN) 10 01:56: in [place] mg tablet 17 morning Medical and 10 mg Branch at noon and 10 mg in the evening. Take before meals. ondansetron 2023-0 Yes 4mg Take 4 mg U nivers 4 mg tablet 4-18 by mouth ity of 01:56: every 8 [place] [address] (eight) Medical hours as Branch needed. 3-0 Yes Take by Univer s 25/iron 4-18 mouth. ity of fum/folic/d 01:56: [place] [address] Medical (-1 Branch ORAL) metoclopram 2023-0 Yes 10mg Take 10 mg Univers aries HCl 4-18 by mouth ity of (REGLAN) 10 01:56: in the [place] mg tablet 17 morning Medical and 10 mg Branch at noon and 10 mg in the evening. Take before meals. ondansetron Yes 4mg Take 4 mg U nivers 4 mg tablet 4-18 by mouth ity of 01:56: every 8 [place] [address] (eight) Medical hours as Branch needed. Yes Take by Univer s 25/iron 4-18 mouth. ity of fum/folic/d 01:56: [place] [address] Medical (-1 Branch ORAL) Yes Take by Univer s 25/iron 4-18 mouth. ity of fum/folic/d 01:56: [place] [address] Medical (-1 Branch ORAL) Yes Take by Univer s 25/iron 4-18 mouth. ity of fum/folic/d 01:56: [place] [address] Medical (-1 Branch ORAL) Yes Take by Univer s 25/iron 4-18 mouth. ity of fum/folic/d 01:56: [place] [address] Medical (-1 Branch ORAL) Yes Take by Univer s 25/iron 4-18 mouth. ity of fum/folic/d 01:56: [place] [address] Medical (-1 Branch ORAL) Yes Take by Univer s 25/iron 4-18 mouth. ity of fum/folic/d 01:56: [place] [address] Medical (-1 Branch ORAL) acetaminoph 2022- Yes 1000mg 1,000 mg, Univers en 11-10 Oral, ity of (TYLENOL) 20:45: 08:44 ONCE, 1 [place] tablet 00 :00 dose, On Medical 1,000 mg 11/10/22 Branc h at 1445, ARNDAL amoxicillin 2022- Yes [id number] 500mg Take 1 Univers 500 mg 11-10 capsule by ity of capsule 00:00: 04:59 mouth in [place] 00 :00 the Medical morning Branch and 1 capsule at noon and 1 capsule in the evening. Do all this for 10 days. amoxicillin 2022- Yes [id number] 500mg Take 1 Univers 500 mg 3-05 03-16 capsule by ity of capsule 00:00: 04:59 mouth in [place] 00 :00 the Medical morning Branch and 1 capsule at noon and 1 capsule in the evening. Do all this for 10 days. metoclopram 2023-0 Yes 10mg Take 10 mg Univers aries HCl 3-01 by mouth ity of (REGLAN) 10 20:02: in the [place] mg tablet 30 morning Medical and 10 mg Branch at noon and 10 mg in the evening. Take before meals. ondansetron 2023-0 Yes 4mg Take 4 mg U nivers 4 mg tablet 3-01 by mouth ity of 20:02: every 8 [place] [address] (eight) Medical hours as Branch needed. 3-0 Yes Take by Univer s 25/iron 3-01 mouth. ity of fum/folic/d 20:02: [facility] 30 Medical (-1 Branch ORAL) metoclopram 2023-0 Yes 10mg Take 10 mg Univers aries HCl 3-01 by mouth ity of (REGLAN) 10 20:02: in [place] mg tablet 30 morning Medical and 10 mg Branch at noon and 10 mg in the evening. Take before meals. ondansetron 2023-0 Yes 4mg Take 4 mg U nivers 4 mg tablet 3-01 by mouth ity of 20:02: every 8 [place] [address] (eight) Medical hours as Branch needed. 3-0 Yes Take by Univer s 25/iron 3-01 mouth. ity of fum/folic/d 20:02: [facility] 30 Medical (-1 Branch ORAL) metoclopram 2023-0 Yes 10mg Take 10 mg Univers areis HCl 3-01 by mouth ity of (REGLAN) 10 20:02: in [place] mg tablet 30 morning Medical and 10 mg Branch at noon and 10 mg in the evening. Take before meals. ondansetron 2023-0 Yes 4mg Take 4 mg U nivers 4 mg tablet 3-01 by mouth ity of 20:02: every 8 [place] [address] (eight) Medical hours as Branch needed. 3-0 Yes Take by Univer s 25/iron 3-01 mouth. ity of fum/folic/d 20:02: [facility] 30 Medical (-1 Branch ORAL) metoclopram 2023-0 Yes 10mg Take 10 mg Univers aries HCl 3-01 by mouth ity of (REGLAN) 10 20:02: [place] mg tablet 30 morning Medical and 10 mg Branch at noon and 10 mg in the evening. Take before meals. ondansetron 2023-0 Yes 4mg Take 4 mg U nivers 4 mg tablet 3-01 by mouth ity of 20:02: every 8 [place] 30 (eight) Medical hours as Branch needed. 2022-0 Yes Take by Univer s 25/iron 3-01 mouth. ity of fum/folic/d 20:02: [place] [facility] 30 Medical (-1 Branch ORAL) metoclopram 2023-0 Yes 10mg Take 10 mg Univers aries HCl 3-01 by mouth ity of (REGLAN) 10 20:02: [place] mg tablet 30 morning Medical and 10 mg Branch at noon and 10 mg in the evening. Take before meals. ondansetron 2023-0 Yes 4mg Take 4 mg U nivers 4 mg tablet 3-01 by mouth ity of 20:02: every 8 [place] [address] (eight) Medical hours as Branch needed. 3-0 Yes Take by Univer s 25/iron 3-01 mouth. ity of fum/folic/d 20:02: [facility] 30 Medical (-1 Branch ORAL) metoclopram 2023-0 Yes 10mg Take 10 mg Univers aries HCl 3-01 by mouth ity of (REGLAN) 10 20:02: in [place] mg tablet 30 morning Medical and 10 mg Branch at noon and 10 mg in the evening. Take before meals. ondansetron 2023-0 Yes 4mg Take 4 mg U nivers 4 mg tablet 3-01 by mouth ity of 20:02: every 8 [place] 30 (eight) Medical hours as Branch needed. 3-0 Yes Take by Univer s 25/iron 3-01 mouth. ity of fum/folic/d 20:02: [facility] 30 Medical (-1 Branch ORAL) metoclopram 2023-0 Yes 10mg Take 10 mg Univers aries HCl 3-01 by mouth ity of (REGLAN) 10 20:02: in [place] mg tablet 30 morning Medical and 10 mg Branch at noon and 10 mg in the evening. Take before meals. ondansetron 2023-0 Yes 4mg Take 4 mg U nivers 4 mg tablet 3-01 by mouth ity of 20:02: every 8 [place] 30 (eight) Medical hours as Branch needed. 2022-0 Yes Take by Univer s 25/iron 3-01 mouth. ity of fum/folic/d 20:02: [facility] 30 Medical (-1 Branch ORAL) metoclopram 2023-0 Yes 10mg Take 10 mg Univers aries HCl 3-01 by mouth ity of (REGLAN) 10 20:02: in the [place] mg tablet 30 morning Medical and 10 mg Branch at noon and 10 mg in the evening. Take before meals. ondansetron 2023-0 Yes 4mg Take 4 mg U nivers 4 mg tablet 3-01 by mouth ity of 20:02: every 8 [place] 30 (eight) Medical hours as Branch needed. 2022-0 Yes Take by Univer s 25/iron 3-01 mouth. ity of fum/folic/d 20:02: [facility] 30 Medical (-1 Branch ORAL) metoclopram 2023-0 Yes 10mg Take 10 mg Univers aries HCl 2-13 by mouth ity of (REGLAN) 10 13:52: [place] mg tablet 36 morning Medical and 10 mg Branch at noon and 10 mg in the evening. Take before meals. ondansetron 2023-0 Yes 4mg Take 4 mg U nivers 4 mg tablet 2-13 by mouth ity of 13:52: every 8 [place] [address] (eight) Medical hours as Branch needed. 2022-0 Yes Take by Univer s 25/iron 2-13 mouth. ity of fum/folic/d 13:52: [facility] 36 Medical (-1 Branch ORAL) metoclopram 2023-0 Yes 10mg Take 10 mg Univers aries HCl 2-13 by mouth ity of (REGLAN) 10 13:52: [place] mg tablet 36 morning Medical and 10 mg Branch at noon and 10 mg in the evening. Take before meals. ondansetron 2023-0 Yes 4mg Take 4 mg U nivers 4 mg tablet 2-13 by mouth ity of 13:52: every 8 [place] 36 (eight) Medical hours as Branch needed. 2022-0 Yes Take by Univer s 25/iron 2-13 mouth. ity of fum/folic/d 13:52: [place] [address] Medical (-1 Branch ORAL) metoclopram 2022-0 Yes 10mg Take 10 mg Univers aries HCl 2-13 by mouth ity of (REGLAN) 10 13:52: [place] mg tablet 36 morning Medical and 10 mg Branch at noon and 10 mg in the evening. Take before meals. ondansetron 3-0 Yes 4mg Take 4 mg U nivers 4 mg tablet 2-13 by mouth ity of 13:52: every 8 [place] [address] (eight) Medical hours as Branch needed. 2022-0 Yes Take by Univer s 25/iron 2-13 mouth. ity of fum/folic/d 13:52: [place] [address] Medical (-1 Branch ORAL) metoclopram 2022-0 Yes 10mg Take 10 mg Univers aries HCl 2-13 by mouth ity of (REGLAN) 10 13:52: in the [place] mg tablet 36 morning Medical and 10 mg Branch at noon and 10 mg in the evening. Take before meals. ondansetron 2022-0 Yes 4mg Take 4 mg U nivers 4 mg tablet 2-13 by mouth ity of 13:52: every 8 [place] [address] (eight) Medical hours as Branch needed. 2022-0 Yes Take by Univer s 25/iron 2-13 mouth. ity of fum/folic/d 13:52: [place] [address] Medical (-1 Branch ORAL) NaCl 0.9% 0 2022- No 1000mL at 999 Uni vers (NS) bolus 2-05 02-05 mL/hr, ity of infusion 03:15: 04:00 1,000 mL, [place] 1,000 mL 00 :00 IV Medical Infusion, Branch ONCE, 1 dose, On 10/12/22 at 2115, RANDAL metoclopram 2022-0 2022- No 10mg 10 mg, Uni vers aries HCl 2-05 02-05 Slow IV ity of (REGLAN) 02:45: 02:57 Push, [place] injection 00 :00 ONCE, 1 Medical 10 mg dose, On Branch 10/12/22 at 2045, RANDAL PROMETHEGAN 2022-0 Yes INSERT 1 Un anne 50 mg 1-19 SUPPOSITOR ity of suppository 00:00: Y (50 MG) [place] BY RECTAL Medical ROUTE Branch EVERY 6-8 HRS NEEDED PROMETHEGAN 2023-0 Yes INSERT 1 [facility] [place] 50 mg 1-19 SUPPOSITOR ity of suppository 00:00: Y (50 MG) [place] 00 BY RECTAL Medical ROUTE Branch EVERY 6-8 HRS NEEDED PROMETHEGAN 202-0 Yes INSERT 1 [place] 50 mg 1-19 SUPPOSITOR ity of suppository 00:00: Y (50 MG) [place] 00 BY RECTAL Medical ROUTE Branch EVERY 6-8 HRS NEEDED PROMETHEGAN 2022-0 Yes INSERT 1 [place] 50 mg 1-19 SUPPOSITOR ity of suppository 00:00: Y (50 MG) [place] 00 BY RECTAL Medical ROUTE Branch EVERY 6-8 HRS NEEDED PROMETHEGAN 2022-0 Yes INSERT 1 [place] 50 mg 1-19 SUPPOSITOR ity of suppository 00:00: Y (50 MG) [place] 00 BY RECTAL Medical ROUTE Branch EVERY 6-8 HRS NEEDED PROMETHEGAN 2022-0 Yes INSERT 1 [facility] [place] 50 mg 1-19 SUPPOSITOR ity of suppository 00:00: Y (50 MG) [place] 00 BY RECTAL Medical ROUTE Branch EVERY 6-8 HRS NEEDED PROMETHEGAN 2022-0 Yes INSERT 1 [place] 50 mg 1-19 SUPPOSITOR ity of suppository 00:00: Y (50 MG) [place] 00 BY RECTAL Medical ROUTE Branch EVERY 6-8 HRS NEEDED PROMETHEGAN 2022-0 Yes INSERT 1 [place] 50 mg 1-19 SUPPOSITOR ity of suppository 00:00: Y (50 MG) [place] 00 BY RECTAL Medical ROUTE Branch EVERY 6-8 HRS NEEDED PROMETHEGAN 3-0 Yes INSERT 1 [facility] [place] 50 mg 1-19 SUPPOSITOR ity of suppository 00:00: Y (50 MG) [place] 00 BY RECTAL Medical ROUTE Branch EVERY 6-8 HRS NEEDED PROMETHEGAN 2022-0 Yes INSERT 1 [place] 50 mg 1-19 SUPPOSITOR ity of suppository 00:00: Y (50 MG) [place] 00 BY RECTAL Medical ROUTE Branch EVERY 6-8 HRS NEEDED PROMETHEGAN 2023-0 Yes INSERT 1 [facility] [place] 50 mg 1-19 SUPPOSITOR ity of suppository 00:00: Y (50 MG) [place] 00 BY RECTAL Medical ROUTE Branch EVERY 6-8 HRS NEEDED PROMETHEGAN 2023-0 Yes INSERT 1 [place] 50 mg 1-19 SUPPOSITOR ity of suppository 00:00: Y (50 MG) [place] 00 BY RECTAL Medical ROUTE Branch EVERY 6-8 HRS NEEDED PROMETHEGAN 2023-0 Yes INSERT 1 [facility] [place] 50 mg 1-19 SUPPOSITOR ity of suppository 00:00: Y (50 MG) [place] 00 BY RECTAL Medical ROUTE Branch EVERY 6-8 HRS NEEDED proMETHazin 2023-0 Yes TAKE 1 [facility] 25 mg 1-03 TABLET BY ity of tablet 00:00: MOUTH [place] 00 EVERY 6 Medical HOURS Branch NEEDED NAUSEA proMETHazin 2023-0 Yes TAKE 1 [facility] 25 mg 1-03 TABLET BY ity of tablet 00:00: MOUTH [place] 00 EVERY 6 Medical HOURS Branch NEEDED NAUSEA proMETHazin 2023-0 Yes TAKE 1 [facility] 25 mg 1-03 TABLET BY ity of tablet 00:00: MOUTH [place] 00 EVERY 6 Medical HOURS Branch NEEDED NAUSEA proMETHazin 2023-0 Yes TAKE 1 [facility] 25 mg 1-03 TABLET BY ity of tablet 00:00: MOUTH [place] 00 EVERY 6 Medical HOURS Branch NEEDED NAUSEA proMETHazin 2023-0 Yes TAKE 1 [facility] 25 mg 1-03 TABLET BY ity of tablet 00:00: MOUTH [place] 00 EVERY 6 Medical HOURS Branch NEEDED NAUSEA proMETHazin 2023-0 Yes TAKE 1 [facility] 25 mg 1-03 TABLET BY ity of tablet 00:00: MOUTH [place] 00 EVERY 6 Medical HOURS Branch NEEDED NAUSEA proMETHazin 2023-0 Yes TAKE 1 [facility] 25 mg 1-03 TABLET BY ity of tablet 00:00: MOUTH [place] 00 EVERY 6 Medical HOURS Branch NEEDED NAUSEA proMETHazin 2023-0 Yes TAKE 1 [facility] 25 mg 1-03 TABLET BY ity of tablet 00:00: MOUTH [place] 00 EVERY 6 Medical HOURS Branch NEEDED NAUSEA proMETHazin 2023-0 Yes TAKE 1 [facility] 25 mg 1-03 TABLET BY ity of tablet 00:00: MOUTH [place] 00 EVERY 6 Medical HOURS Branch NEEDED NAUSEA proMETHazin 2023-0 Yes TAKE 1 [facility] 25 mg 1-03 TABLET BY ity of tablet 00:00: MOUTH [place] 00 EVERY 6 Medical HOURS Branch NEEDED NAUSEA proMETHazin 2023-0 Yes TAKE 1 [facility] 25 mg 1-03 TABLET BY ity of tablet 00:00: MOUTH [place] 00 EVERY 6 Medical HOURS Branch NEEDED NAUSEA proMETHazin 2023-0 Yes TAKE 1 [facility] 25 mg 1-03 TABLET BY ity of tablet 00:00: MOUTH [place] 00 EVERY 6 Medical HOURS Branch NEEDED NAUSEA proMETHazin 2023-0 Yes TAKE 1 [facility] 25 mg 1-03 TABLET BY ity of tablet 00:00: MOUTH [place] 00 EVERY 6 Medical HOURS Branch NEEDED NAUSEA proMETHazin 2023-0 Yes TAKE 1 [facility] 25 mg 1-03 TABLET BY ity of tablet 00:00: MOUTH [place] 00 EVERY 6 Medical HOURS Branch NEEDED NAUSEA proMETHazin 2023-0 Yes TAKE 1 [facility] 25 mg 1-03 TABLET BY ity of tablet 00:00: MOUTH [place] 00 EVERY 6 Medical HOURS Branch NEEDED NAUSEA proMETHazin 2023-0 Yes TAKE 1 [facility] 25 mg 1-03 TABLET BY ity of tablet 00:00: MOUTH [place] 00 EVERY 6 Medical HOURS Branch NEEDED NAUSEA proMETHazin 2023-0 Yes TAKE 1 [facility] 25 mg 1-03 TABLET BY ity of tablet 00:00: MOUTH [place] 00 EVERY 6 Medical HOURS Branch NEEDED NAUSEA proMETHazin 2023-0 Yes TAKE 1 [facility] 25 mg 1-03 TABLET BY ity of tablet 00:00: MOUTH [place] 00 EVERY 6 Medical HOURS Branch NEEDED NAUSEA proMETHazin 2023-0 Yes TAKE 1 [facility] 25 mg 1-03 TABLET BY ity of tablet 00:00: MOUTH [place] 00 EVERY 6 Medical HOURS Branch NEEDED NAUSEA proMETHazin 2023-0 Yes TAKE 1 [facility] 25 mg 1-03 TABLET BY ity of tablet 00:00: MOUTH [place] 00 EVERY 6 Medical HOURS Branch NEEDED NAUSEA proMETHazin 2023-0 Yes TAKE 1 [facility] 25 mg 1-03 TABLET BY ity of tablet 00:00: MOUTH [place] 00 EVERY 6 Medical HOURS Branch NEEDED NAUSEA proMETHazin 2023-0 Yes TAKE 1 [facility] 25 mg 1-03 TABLET BY ity of tablet 00:00: MOUTH [place] 00 EVERY 6 Medical HOURS Branch NEEDED NAUSEA ondansetron 2021- Yes PLACE 1/2 U [facility] 8 mg 2-19 TABLETS ON [facility] disintegrat 00:00[place] 00 TONGUE Medical EVERY 6 TO Branch 8 HOURS IT WILL DISSOLVE ondansetron 2021- Yes PLACE 1/2 U nivers 8 mg 2-19 TABLETS ON [facility] disintegrat 00:00: [place] T[place]UE Medical EVERY 6 TO Branch 8 HOURS IT WILL DISSOLVE ondansetron 2021- Yes PLACE 1/2 U n[facility] 8 mg 2-19 TABLETS ON [facility] disintegrat 00:00: [place] 00 TONGUE Medical EVERY 6 TO Branch 8 HOURS IT WILL DISSOLVE ondansetron 2021- Yes PLACE 1/2 U nivers 8 mg 2-19 TABLETS ON [facility] disintegrat 00:00: [place] 00 TONGUE Medical EVERY 6 TO Branch 8 HOURS IT WILL DISSOLVE ondansetron 2021- Yes PLACE 1/2 U nivers 8 mg 2-19 TABLETS ON [facility] disintegrat 00:00: [place] 00 TONGUE Medical EVERY 6 TO Branch 8 HOURS IT WILL DISSOLVE ondansetron 2021- Yes PLACE 1/2 U n[facility] 8 mg 2-19 TABLETS ON [facility] disintegrat 00:00: [place] 00 TONGUE Medical EVERY 6 TO Branch 8 HOURS IT WILL DISSOLVE ondansetron 2021- Yes PLACE 1/2 U n[facility] 8 mg 2-19 TABLETS ON [facility] of disintegrat 00:00: [place] 00 TONGUE Medical EVERY 6 TO Branch 8 HOURS IT WILL DISSOLVE ondansetron 2021- Yes PLACE 1/2 U nivers 8 mg 2-19 TABLETS ON it[facility] of disintegrat 00:00: [place] 00 TONGUE Medical EVERY 6 TO Branch 8 HOURS IT WILL DISSOLVE ondansetron 2021- Yes PLACE 1/2 U n[facility] 8 mg 2-19 TABLETS ON [facility] of disintegrat 00:00: [place] 00 TONGUE Medical EVERY 6 TO Branch 8 HOURS IT WILL DISSOLVE ondansetron 2021-[address] 1/2 U nivers 8 mg 2-19 TABLETS ON [facility] of disintegrat 00:00: [place] 00 TONGUE Medical EVERY 6 TO Branch 8 HOURS IT WILL DISSOLVE ondansetron 2-[address] 1/2 U n[facility] 8 mg 2-19 TABLETS ON [facility] of disintegrat 00:00: [place] 00 TONGUE Medical EVERY 6 TO Branch 8 HOURS IT WILL DISSOLVE ondansetron 2-[address] 1/2 U n[facility] 8 mg 2-19 TABLETS ON [facility] of disintegrat 00:00: [place] 00 TONGUE Medical EVERY 6 TO Branch 8 HOURS IT WILL DISSOLVE ondansetron 2-[address] 1/2 U n[facility] 8 mg 2-19 TABLETS ON it[facility] of disintegrat 00:00: [place] 00 TONGUE Medical EVERY 6 TO Branch 8 HOURS IT WILL DISSOLVE ondansetron 2-[address] 1/2 U n[facility] 8 mg 2-19 TABLETS ON [facility] of disintegrat 00:00: [place] 00 TONGUE Medical EVERY 6 TO Branch 8 HOURS IT WILL DISSOLVE ondansetron 2021-[address] 1/2 U nivers 8 mg 2-19 TABLETS ON it[facility] of disintegrat 00:00: [place] 00 TONGUE Medical EVERY 6 TO Branch 8 HOURS IT WILL DISSOLVE ondansetron 2-[address] 1/2 U n[facility] 8 mg 2-19 TABLETS ON it[facility] of disintegrat 00:00: [place] 00 TONGUE Medical EVERY 6 TO Branch 8 HOURS IT WILL DISSOLVE ondansetron 2-[address] 1/2 U nivers 8 mg 2-19 TABLETS ON ity of disintegrat 00:00: [place] 00 TONGUE Medical EVERY 6 TO Branch 8 HOURS IT WILL DISSOLVE ondansetron 2-[address] 1/2 U nivers 8 mg 2-19 TABLETS ON ity of disintegrat 00:00: [place] 00 TONGUE Medical EVERY 6 TO Branch 8 HOURS IT WILL DISSOLVE ondansetron 2-[address] 1/2 U nivers 8 mg 2-19 TABLETS ON ity of disintegrat 00:00: [place] OF [place] 00 TONGUE Medical EVERY 6 TO Branch 8 HOURS IT WILL DISSOLVE ondansetron 2-[address] 1/2 U nivers 8 mg 2-19 TABLETS ON ity of disintegrat 00:00: [place] OF [place] 00 TONGUE Medical EVERY 6 TO Branch 8 HOURS IT WILL DISSOLVE ondansetron 2021-[address] 1/2 U nivers 8 mg 2-19 TABLETS ON ity of disintegrat 00:00: [place] 00 TONGUE Medical EVERY 6 TO Branch 8 HOURS IT WILL DISSOLVE ondansetron 2021-[address] 1/2 U nivers 8 mg 2-19 TABLETS ON ity of disintegrat 00:00: [place] 00 TONGUE Medical EVERY 6 TO Branch 8 HOURS IT WILL DISSOLVE Immunizations Ordered Filled Immunization Date Status Comments [facility] e Immunization Name Name [facility] 2023-01-13 Completed University [facility] 00:00:00 [facility] TDAP 2023-01-13 Completed University of 00:00:00 [facility] TDAP 2023-01-13 Completed University of 00:00:00 [facility] TDAP 2023-01-13 Completed University of 00:00:00 [facility] TDAP 2023-01-13 Completed University of 00:00:00 [facility] TDAP 2023-01-13 Completed University of 00:00:00 [facility] SARS-COV-2 COVID-19 2021-01-08 Completed Unive rsity of VACCINE - (MODERNA) 00:00:00 [facility] SARS-COV-2 COVID-19 2021-01-08 Completed Unive rsity of VACCINE - (MODERNA) 00:00:00 [facility] SARS-COV-2 COVID-19 2021-01-08 Completed Unive rsity of VACCINE - (MODERNA) 00:00:00 [facility] SARS-COV-2 COVID-19 2021-01-08 Completed Unive rsity of VACCINE - (MODERNA) 00:00:00 [facility] SARS-COV-2 COVID-19 2021-01-08 Completed Unive rsity of VACCINE - (MODERNA) 00:00:00 [facility] SARS-COV-2 COVID-19 2021-01-08 Completed Unive rsity of VACCINE - (MODERNA) 00:00:00 [facility] SARS-COV-2 COVID-19 2021-01-08 Completed Unive rsity of VACCINE - (MODERNA) 00:00:00 [facility] SARS-COV-2 COVID-19 2021-01-08 Completed Unive rsity of VACCINE - (MODERNA) 00:00:00 [facility] SARS-COV-2 COVID-19 2021-01-08 Completed Unive rsity of VACCINE - (MODERNA) 00:00:00 [facility] SARS-COV-2 COVID-19 2021-01-08 Completed Unive rsity of VACCINE - (MODERNA) 00:00:00 [facility] SARS-COV-2 COVID-19 2021-01-08 Completed Unive rsity of VACCINE - (MODERNA) 00:00:00 [facility] SARS-COV-2 COVID-19 2021-01-08 Completed Unive rsity of VACCINE - (MODERNA) 00:00:00 [facility] SARS-COV-2 COVID-19 2021-01-08 Completed Unive rsity of VACCINE - (MODERNA) 00:00:00 [facility] SARS-COV-2 COVID-19 2021-01-08 Completed Unive rsity of VACCINE - (MODERNA) 00:00:00 [facility] SARS-COV-2 COVID-19 2021-01-08 Completed Unive rsity of VACCINE - (MODERNA) 00:00:00 [facility] SARS-COV-2 COVID-19 2021-01-08 Completed Unive rsity of VACCINE - (MODERNA) 00:00:00 [facility] SARS-COV-2 COVID-19 2021-01-08 Completed Unive rsity of VACCINE - (MODERNA) 00:00:00 [facility] SARS-COV-2 COVID-19 2021-01-08 Completed Unive rsity of VACCINE - (MODERNA) 00:00:00 [facility] SARS-COV-2 COVID-19 2021-01-08 Completed Unive rsity of VACCINE - (MODERNA) 00:00:00 [facility] SARS-COV-2 COVID-19 2021-01-08 Completed Unive rsity of VACCINE - (MODERNA) 00:00:00 [facility] SARS-COV-2 COVID-19 2021-01-08 Completed Unive rsity of VACCINE - (MODERNA) 00:00:00 [facility] SARS-COV-2 COVID-19 2021-01-08 Completed Unive rsity of VACCINE - (MODERNA) 00:00:00 [facility] SARS-COV-2 COVID-19 2020-12-14 Completed Unive rsity of VACCINE - (MODERNA) 00:00:00 [facility] SARS-COV-2 COVID-19 2020-12-14 Completed Unive rsity of VACCINE - (MODERNA) 00:00:00 [facility] SARS-COV-2 COVID-19 2020-12-14 Completed Unive rsity of VACCINE - (MODERNA) 00:00:00 [facility] SARS-COV-2 COVID-19 2020-12-14 Completed Unive rsity of VACCINE - (MODERNA) 00:00:00 [facility] SARS-COV-2 COVID-19 2020-12-14 Completed Unive rsity of VACCINE - (MODERNA) 00:00:00 [facility] SARS-COV-2 COVID-19 2020-12-14 Completed Unive rsity of VACCINE - (MODERNA) 00:00:00 [facility] SARS-COV-2 COVID-19 2020-12-14 Completed Unive rsity of VACCINE - (MODERNA) 00:00:00 [facility] SARS-COV-2 COVID-19 2020-12-14 Completed Unive rsity of VACCINE - (MODERNA) 00:00:00 [facility] SARS-COV-2 COVID-19 2020-12-14 Completed Unive rsity of VACCINE - (MODERNA) 00:00:00 [facility] SARS-COV-2 COVID-19 2020-12-14 Completed Unive rsity of VACCINE - (MODERNA) 00:00:00 [facility] SARS-COV-2 COVID-19 2020-12-14 Completed Unive rsity of VACCINE - (MODERNA) 00:00:00 [facility] SARS-COV-2 COVID-19 2020-12-14 Completed Unive rsity of VACCINE - (MODERNA) 00:00:00 [facility] SARS-COV-2 COVID-19 2020-12-14 Completed Unive rsity of VACCINE - (MODERNA) 00:00:00 [facility] SARS-COV-2 COVID-19 2020-12-14 Completed Unive rsity of VACCINE - (MODERNA) 00:00:00 [facility] SARS-COV-2 COVID-19 2020-12-14 Completed Unive rsity of VACCINE - (MODERNA) 00:00:00 [facility] SARS-COV-2 COVID-19 2020-12-14 Completed Unive rsity of VACCINE - (MODERNA) 00:00:00 [facility] SARS-COV-2 COVID-19 2020-12-14 Completed Unive rsity of VACCINE - (MODERNA) 00:00:00 [facility] SARS-COV-2 COVID-19 2020-12-14 Completed Unive rsity of VACCINE - (MODERNA) 00:00:00 [facility] SARS-COV-2 COVID-19 2020-12-14 Completed Unive rsity of VACCINE - (MODERNA) 00:00:00 [facility] SARS-COV-2 COVID-19 2020-12-14 Completed Unive rsity of VACCINE - (MODERNA) 00:00:00 [facility] SARS-COV-2 COVID-19 2020-12-14 Completed Unive rsity of VACCINE - (MODERNA) 00:00:00 [facility] SARS-COV-2 COVID-19 2020-12-14 Completed Unive rsity of VACCINE - (MODERNA) 00:00:00 [facility] Vital Signs Vital Name Observation Time Observation Value Comments Source Heart rate 2023-01-31 03:00:00 111 /min [facility] Oxygen saturation in 2023-01-31 03:00:00 100 /min [facility] Arterial blood by [facility] Pulse oximetry Branch Systolic blood 2023-01-31 02:30:00 124 mm[Hg] Univer sity of pressure [facility] Diastolic blood 2023-01-31 02:30:00 72 mm[Hg] Unive rsity of pressure [facility] Body temperature 2023-01-31 02:00:00 36.83 [facility] 2023-01-30 23:39:00 16 /[facility] Body weight 2023-01-30 23:19:00 83.144 kg [facility] BMI 2023-01-30 23:19:00 32.47 kg/m2 [facility] [place] [facility] Systolic blood 2023-01-13 15:25:00 117 mm[Hg] Univer sity of pressure [place] [facility] Diastolic blood 2023-01-13 15:25:00 75 mm[Hg] Unive rsity of pressure [place] [facility] Heart rate 2023-01-13 15:25:00 89 /min [facility] [place] [facility] Respiratory rate 2023-01-13 15:25:00 18 /min Univ ersity of [facility] Body height 2023-01-13 15:25:00 160 cm [facility] [place] [facility] Body weight 2023-01-13 15:25:00 83.915 kg [facility] [place] [facility] BMI 2023-01-13 15:25:00 32.77 kg/m2 [facility] [place] [facility] Systolic blood 2023-01-12 07:56:00 122 mm[Hg] Univer sity of pressure [facility] Diastolic blood 2023-01-12 07:56:00 84 mm[Hg] Unive rsity of pressure [place] [facility] Heart rate 2023-01-12 07:56:00 93 /min [facility] [place] [facility] Respiratory rate 2023-01-12 07:56:00 16 /min Univ ersity of [facility] Oxygen saturation in 2023-01-12 07:56:00 97 /min University of Arterial blood by [facility] Pulse oximetry Branch Body temperature 2023-01-12 06:06:00 36.61 Juliette Univ ersity of [facility] Body height 2023-01-12 06:06:00 160 cm [facility] [place] [facility] Body weight 2023-01-12 06:06:00 84.777 kg [facility] [place] [facility] BMI 2023-01-12 06:06:00 33.11 kg/m2 Universi ty of [facility] Systolic blood 2023-01-02 16:39:00 121 mm[Hg] Univer sity of pressure [place] [facility] Diastolic blood 2023-01-02 16:39:00 78 mm[Hg] Unive rsity of pressure [facility] Heart rate 2023-01-02 16:39:00 76 /min Universi ty of [facility] Body temperature 2023-01-02 16:39:00 36.67 [place]te [facility] [place] [facility] Respiratory rate 2023-01-02 16:39:00 16 /min [facility] [place] [facility] Body height 2023-01-02 16:39:00 157.5 cm [facility] [place] [facility] Body weight 2023-01-02 16:39:00 83.507 kg [facility] [place] [facility] BMI 2023-01-02 16:39:00 33.67 kg/m2 [facility] [place] [facility] Systolic blood 2022-12-24 06:38:00 134 mm[Hg] Univer [facility]ity of pressure [place] [facility] Diastolic blood 2022-12-24 06:38:00 71 mm[Hg] Unive rsity of pressure [place] [facility] Heart rate 2022-12-24 06:38:00 90 /min Universi ty of [facility] Oxygen saturation in 2022-12-24 06:38:00 100 /min [facility] Arterial blood by [facility] Pulse oximetry Branch Body temperature 2022-12-24 05:45:00 36.61 [place] [facility] [place] [facility] Respiratory rate 2022-12-24 05:45:00 15 /min [facility] [place] [facility] Body height 2022-12-24 05:45:00 160 cm [facility] [place] [facility] Body weight 2022-12-24 05:45:00 82.781 kg [facility] [place] [facility] BMI 2022-12-24 05:45:00 32.34 kg/m2 Universi [facility] of [facility] Systolic blood 2022-12-16 18:24:00 130 mm[Hg] Univer [facility]ity of pressure [place] [facility] Diastolic blood 2022-12-16 18:24:00 79 mm[Hg] Unive rsity of pressure [place] [facility] Heart rate 2022-12-16 18:24:00 97 /min Universi [facility] of [facility] Body temperature 2022-12-16 18:24:00 36.72 Juliette [facility] [place] [facility] Respiratory rate 2022-12-16 18:24:00 16 /min [facility] [place] [facility] Body height 2022-12-16 18:24:00 160 cm [facility] [place] [facility] Body weight 2022-12-16 18:24:00 81.239 kg [facility] [place] [facility] BMI 2022-12-16 18:24:00 31.73 kg/m2 [facility] [place] [facility] Systolic blood 2022-11-18 18:56:00 124 mm[Hg] Univer [facility] of pressure [facility] Diastolic blood 2022-11-18 18:56:00 79 mm[Hg] Unive rsity of pressure [place] [facility] Heart rate 2022-11-18 18:56:00 94 /min Universi [facility] of [facility] Body temperature 2022-11-18 18:56:00 36.72 Juliette [facility] [place] [facility] Respiratory rate 2022-11-18 18:56:00 16 /min Univ ersity of [facility] Body height 2022-11-18 18:56:00 160 cm [facility] [place] [facility] Body weight 2022-11-18 18:56:00 79.017 kg [facility] [place] [facility] BMI 2022-11-18 18:56:00 30.86 kg/m2 [facility] [place] [facility] Systolic blood 2022-11-10 19:01:00 143 mm[Hg] Univer [facility]ity of pressure [place] [facility] Diastolic blood 2022-11-10 19:01:00 81 mm[Hg] Unive rsity of pressure [place] [facility] Heart rate 2022-11-10 19:01:00 95 /min Universi ty of [facility] Body temperature 2022-11-10 19:01:00 38.22 Juliette Univ ersity of [facility] Respiratory rate 2022-11-10 19:01:00 16 /min Univ ersity of [facility] Body height 2022-11-10 19:01:00 160 cm [facility] [place] [facility] Body weight 2022-11-10 19:01:00 78.472 kg [facility] [place] [facility] BMI 2022-11-10 19:01:00 30.65 kg/m2 [facility] of [facility] Oxygen saturation in 2022-11-10 19:01:00 100 /min University of Arterial blood by [facility] Pulse oximetry Branch Systolic blood 2022-11-07 01:30:00 128 mm[Hg] Univer sity of pressure [facility] Diastolic blood 2022-11-07 01:30:00 74 mm[Hg] Unive rsity of pressure [facility] Heart rate 2022-11-07 01:30:00 94 /min [facility] [place] [facility] Oxygen saturation in 2022-11-07 01:30:00 100 /min [facility] Arterial blood by [facility] Pulse oximetry Branch Body temperature 2022-11-06 22:52:00 36.78 [place]te [facility] [place] [facility] Respiratory rate 2022-11-06 22:52:00 16 /min [facility] [place] [facility] Body height 2022-11-06 22:23:00 160 cm [facility] [place] [facility] Body weight 2022-11-06 22:23:00 80.967 kg [facility] [place] [facility] BMI 2022-11-06 22:23:00 31.62 kg/m2 [facility] Systolic blood 2022-10-21 19:49:00 132 mm[Hg] Univer [facility] of [facility] Diastolic blood 2022-10-21 19:49:00 84 mm[Hg] Unive rsity of pressure [facility] Heart rate 2022-10-21 19:48:00 79 /min [facility] Body temperature 2022-10-21 19:48:00 36.72 [place] [facility] Respiratory rate 2022-10-21 19:48:00 18 /min [facility] Body height 2022-10-21 19:48:00 157.5 cm [facility] [place] [facility] Body weight 2022-10-21 19:48:00 77.747 kg [facility] [place] [facility] BMI 2022-10-21 19:48:00 31.35 kg/m2 [facility] [place] [facility] Systolic blood 2022-10-13 04:00:00 124 mm[Hg] Univer [facility]ity of pressure [facility] Diastolic blood 2022-10-13 04:00:00 72 mm[Hg] Unive rsity of pressure [facility] Heart rate 2022-10-13 04:00:00 86 /min [facility] Oxygen saturation in 2022-10-13 04:00:00 100 /min University of Arterial blood by [place] [facility] Pulse oximetry Branch Body temperature 2022-10-13 02:16:00 36.78 Juliette [facility] Respiratory rate 2022-10-13 02:16:00 20 /min [facility] Body height 2022-10-13 02:16:00 157.5 cm [facility] Body weight 2022-10-13 02:16:00 77.111 kg [facility] BMI 2022-10-13 02:16:00 31.09 kg/m2 [facility] Procedures Procedure Date / Time Performing Clinician Source Performed SGOT (ASPARTATE AMINO 2023-01-31 00:31:00 Adum, [facility] TRANSFER) Medical Branch CREATININE 2023-01-31 00:31:00 Adum, [facility] ALANINE AMINO 2023-01-31 00:31:00 Adum, [facility] TRANSFERASE(SGPT Medical Branch LACTATE DEHYDROGENASE 2023-01-31 00:31:00 Adum, [facility] URIC ACID 2023-01-31 00:31:00 Adum, [facility] CBC WITH DIFF 2023-01-31 00:31:00 Adum, [facility] NOTICE OF PRIVACY 2023-01-30 23:14:59 Doctor Unassigned, No [facility] PRACTICES Name Medical Branch ASSIGNMENT OF BENEFITS 2023-01-30 23:13:14 Doctor Unassigned, No [facility] Name Medical Branch 3 HR GLUCOSE TOLERANCE 2023-01-17 16:25:00 [facility] GLUCOSE TOLERANCE 2023-01-17 15:31:00 [facility] 1 HR GLUCOSE TOLERANCE 2023-01-17 14:21:00 [facility] GLU[facility]SE FASTING 2023-01-17 13:17:00 [facility] GLUCOSE TOLERANCE 2023-01-17 13:17:00 Marcel [facility] TDAP VACCINE, >11 YRS, 2023-01-13 15:35:49 Marcel [facility] POCT URINALYSIS W/O 2023-01-13 00:00:00 Marcel Godinez [facility] SPECIFIC READING Medical Branch COMP. METABOLIC PANEL 2023-01-12 06:19:00 Chris Mooney [facility] ([id number]) Medical Branch CBC WITH DIFF 2023-01-12 06:19:00 Chris Mooney [facility] Branch URINALYSIS 2023-01-12 06:19:00 Chris Mooney [facility] NON-STRESS TEST 2023-01-02 18:22:50 Marcel God[facility] CONSENT/REFUSAL FOR 2022-12-24 05:27:37 Doctor Unassigned, No [facility] Medical Branch POCT URINALYSIS W/O 2022-12-16 00:00:00 Marcel Godinez [facility] Branch POCT URINALYSIS W/O 2022-11-18 00:00:00 [facility] URINALYSIS 2022-11-10 19:42:00 Chris Mooney [facility] RAPID STREP SCREEN FOR 2022-11-10 19:42:00 Chris Mooney [facility] GROUP A Medical Branch CONSENT/REFUSAL FOR 2022-11-10 18:49:35 Doctor Unassigned, No [facility] Medical Branch ASSIGNMENT OF BENEFITS 2022-11-10 18:49:20 Doctor Unassigned, No [facility] Medical Branch CONSENT/REFUSAL FOR 2022-11-06 22:19:44 Doctor Unassigned, No [facility] Name Medical Branch EXTERNAL PROVIDER 2022-10-28 06:01:00 Doctor Unassigned, No [facility] RECORDS [facility] Medical Branch POCT URINALYSIS W/O 2022-10-21 00:00:00 [facility] SPECIFIC READING Medical Branch ABORH CONFIRMATION (LAB 2022-10-13 03:48:00 [facility]. METABOLIC PANEL 2022-10-13 02:58:00 Macy Browning Uni [facility] ([id number]) [facility] CBC WITH DIFF 2022-10-13 02:58:00 Macy Browning [facility] URINALYSIS 2022-10-13 02:58:00 Macy Browning [facility] HB ABO GROUPING 2022-10-13 02:53:00 Macy Browning [facility] NOTICE OF PRIVACY 2022-10-13 02:06:43 Doctor Unassigned, No [facility] PRACTICES Name [facility] Branch CONSENT/REFUSAL FOR 2022-10-13 02:06:24 Doctor Unassigned, No [facility] DIAGNOSIS AND TREATMENT Name [facility] Encounters Start End Encounter Admission Attending Care Care Encounter Source Date/Time Date/Time Type Type Clinicians Facility Department ID 2023-01-31 Outpatient P [facility] ALYCE [id number] Univers 02:04:00 ity [facility] 2022-12-24 Outpatient P [facility] ALYCE [id number] Univers 01:56:29 ity [facility] 2022-11-06 Outpatient X [facility] ALYCE [id number] Univers [facility]23-[facility] 2023-02-04 Outpatient R MARCEL GODINEZ [facility] B [id number] Univers 08:45:00 08:45:00 MARCEL GODINEZ [facility] 2023-01-30 2023-01-30 Outpatient P [facility] ALYCE [id number] Univers 18:29:00 22:12:00 ASHLEY coleman [facility] 2023-01-30 2023-01-30 [facility] 1.2.840.114 [id number] Univers 18:29:00 22:12:00 Encounter Ashley JACOBS 350.1.13.10 jared [facility] 4.2.7.2.686 [facility] [id number] [place] 964683 Branch 2023-01-30 2023-01-30 Orders Doctor BROWN 1.2.840.114 [id number] Univers 00:00:00 00:00:00 Only Unassigned, MEHREEN 350.1.13.10 [facility] 4.2.7.2.686 [place] [id number] [facility] 009 Branch 2023-01-17 2023-01-17 Hose Handler 1, [place] [facility] [place] 1.2.840.114 [id number] Univers 08:00:00 08:15:00 Visit Marcel Godinez 350.1.13. 10 ity of [place] 4.2.7.2.686 [facility] [id number] [facility] 353 Branch 2023-01-17 2023-01-17 Outpatient R MARCEL GODINEZ [facility] B [id number] Univers 08:00:00 08:00:00 MARCEL GODINEZ [facility] 2023-01-13 2023-01-13 Outpatient R [facility] [id number] Univers 17:00:00 17:00:00 ity [facility] 2023-01-13 2023-01-13 Outpatient R MARCEL GODINEZ [facility] B [id number] Univers 10:00:00 10:45:17 MARCEL GODINEZ [facility] 2023-01-13 2023-01-13 Routine Gen[facility] 1.2.840.114 [id number] Univers 10:00:00 10:45:17 Marcel JAYNE 350.1.13.10 i ty of Visit [facility] 4.2.7.2.686 [facility] [id number] [facility] 134 Branch 2023-01-13 2023-01-13 Outpatient R MARCEL GODINEZ [facility] B [id number] Univers 08:30:00 08:30:00 MARCEL GODINEZ [facility] 2023-01-13 2023-01-13 Hose Handler Lab, Ang - Db [facility] 1.2.840.1 [id number] Univers 07:30:00 07:45:00 Visit Marcel Godinez 350.1.13.1 0 ity of [place] 4.2.7.2.686 [place] ROSA?BLEA [id number] Mo sandra HILL [address] [place] [address] MEDICAL OFFICE BUILDING 2023-01-13 2023-01-13 Telephone Gena [facility] 1.2.840.11 [id number] Univers 00:00:00 00:00:00 Marcel GODOY 350.1.13.10 it y of WOMEN'S 4.2.7.2.686 [facility] [id number] [address] 2023-01-12 2023-01-12 Emergency X VASFL, [facility] ERT [id number] Univers 01:11:00 03:01:00 CHRIS ity [facility] 2023-01-12 2023-01-12 Emergency [facility] 1.2.815.513 [id number] Univers 01:11:00 03:01:00 Chris JACOBS 350.1.13.10 i ty of [place] 4.2.7.2.686 [facility] [id number] [address] 2023-01-02 2023-01-02 Routine 1, Lkj Nst Room [facility] 1.2.840. 114 [id number] Univers 13:00:00 13:00:00 Marcel Godinez 350.1.13. 10 ity of Visit WOMEN'S 4.2.7.2.686 [facility] [id number] [address] 2023-01-02 2023-01-02 Outpatient R MARCEL GODINEZ [facility] B [id number] Univers 13:00:00 12:31:50 MARCEL GODINEZ ity of [facility] 2023-01-02 2023-01-02 Patient Lindseytanishaalyce [facility] 1.2.840.114 [id number] Univers 00:00:00 00:00:00 Secure Msg Marcel GODOY 350.1.13.10 ity of [place]2.[place] [facility] [id number] [address] 2022-12-24 2022-12-24 Outpatient P OBDULIO BENITEZ [facility] ALYCE [id number] Univers 00:36:00 01:45:00 ity of [facility] 2022-12-24 2022-12-24 Emergency BenitezObdulio [facility] 1.2.840.114 [id number] Univers 00:36:00 01:45:00 Cam ARLENE 350.1.13.10 i ty [place] [id number] [facility] [address] 2022-12-24 2022-12-24 Orders Doctor KEVIN 1.2.840.114 [id number] Univers 00:00:00 00:00:00 Only Unassigned, MEHREEN 350.1.13.10 ity of [place] [facility] 4.2.7.2.686 [place] [id number] [facility] 009 Branch 2022-12-16 2022-12-16 Outpatient R MARCEL GODINEZ [facility] B [id number] Univers 13:30:00 13:41:41 MARCEL GODINEZ ity [facility] 2022-12-16 2022-12-16 Routine [facility] 1.2.840.114 [id number] Univers 13:30:00 13:41:41 Marcel GODOY 350.1.13.10 i ty of [place] [id number] [address] 2022-11-25 2022-11-25 Case [facility] 1.2.840.114 [id number] Univers 00:00:00 00:00:00 Management Marcel GODOY 350.1.13.10 it[place] [id number] [address] 2022-11-22 2022-11-22 Hose Handler 1, [facility] Room [facility] 1.2. 840.114 [id number] Univers 09:45:00 10:57:12 Visit Kannan Cade IRRIGATOR GRAVITY FLOW 350.1. 13.10 ity of REGIONAL 4.2.7.2.686 [place] MATERNAL [id number] [facility] ical & CHILD [address] [place] [address] 2022-11-22 2022-11-22 Outpatient P OMERE, [facility] [id number] Univers 09:45:00 09:45:00 CHASEY [facility] 2022-11-20 2022-11-20 Outpatient P [facility] [id number] Univers 13:00:00 13:00:00 [facility]22-11-18 2022-11-18 Outpatient R MARCEL GODINEZ [facility] B [id number] Univers 14:00:00 14:27:16 CLAIRMARCEL CISNEROS [facility] 2022-11-18 2022-11-18 Routine [facility] GRANADO 1.2.840.114 [id number] Univers 14:00:00 14:27:16 Marcel GODOY 350.1.13.10 i ty of Visit [facility] 4.2.7.2.686 [facility] [id number] [facility] 134 Branch 2022-11-14 2022-11-14 Outpatient P [facility] [id number] Univers 15:00:00 15:00:00 [facility] 2022-11-10 2022-11-10 Emergency X VASUT, [facility] ERT [id number] Univers 13:03:00 14:36:00 CHRIS [facility] 2022-11-10 2022-11-10 Emergency Vasut, [facility] 1.2.038.062 [id number] Univers 13:03:00 14:36:00 Chris JACOBS 350.1.13.10 i ty of [place] 4.2.7.2.686 [facility] [id number] [facility] 084 Branch 2022-11-10 2022-11-10 Orders Doctor KEVIN 1.2.840.114 [id number] Univers 00:00:00 00:00:00 Only Unassigned, MEHREEN 350.1.13.10 ity of [place] [facility] 4.2.7.2.686 [facility] [id number] [facility] 009 Branch 2022-11-06 2022-11-06 Outpatient X ADUM, [facility] ALYCE [id number] Univers 16:28:00 19:45:00 ASHLEY ity of [facility] 2022-11-06 2022-11-06 Emergency MackNadege [facility] 1.2.840 .114 [id number] Univers 16:28:00 19:45:00 Adum, Ashley JACOBS 350.1.13.10 ity of [place] 4.2.7.2.686 [facility] [id number] [facility] 083 Branch 2022-11-06 2022-11-06 Telephone [facility] 1.2.840.11 4 [id number] Univers 00:00:00 00:00:00 Macrel GODOY 350.1.13.10 it y of PEDIATRIC 4.2.7.2.686 [facility] [id number] [facility] [address] 2022-10-30 2022-10-30 Outpatient R OBDULIO BENITEZ [facility] [id number] Univers 10:00:00 10:00:00 ity of [facility] 2022-10-28 2022-10-28 Orders Doctor KEVIN 1.2.840.114 [id number] Univers 00:00:00 00:00:00 Only Unassigned, MEHREEN 350.1.13.10 ity of [place] [facility] 4.2.7.2.686 [facility] [id number] [facility] 009 Branch 2022-10-21 2022-10-21 Outpatient R MARCEL GODINEZ [facility] B [id number] Univers 13:30:00 14:21:01 MARCEL GODINEZ ity of [facility] 2022-10-21 2022-10-21 Initial [facility] 1.2.840.114 [id number] Univers 13:30:00 14:21:01 Marcel GODOY 350.1.13.10 i ty of Visit WOMEN'S 4.2.7.2.686 [facility] [id number] [facility] 134 Branch 2022-10-21 2022-10-21 Case [facility] 1.2.840.114 [id number] Univers 00:00:00 00:00:00 Management Marcel GODOY 350.1.13.10 ity of WOMEN'S 4.2.7.2.686 [facility] [id number] [facility] 134 Branch 2022-10-21 2022-10-21 Letter [facility] 1.2.840.114 [id number] Univers 00:00:00 00:00:00 (Out) Marcel GODOY 350.1.13.10 it y of [place]OM[place] 4.2.7.2.686 [facility] [id number] [facility] [address] 2022-10-12 2022-10-12 Emergency [facility] 1.2.840.114 [id number] Univers 20:11:00 22:39:00 Macy Serafin JACOBS 350.1.13.10 ity of [place] 4.2.7.2.686 [facility] [id number] [facility] [address] 2022-10-12 2022-10-12 Emergency X [facility] ERT [id number] Univers 20:11:00 22:39:00 MACY [facility] 2022-07-18 2022-07-18 Outpatient [facility] [id number] Emil 08:51:37 08:51:37 1110 F [place] Results Test Description Test Time Test Comments Results Result Comments Source 3 HR GLUCOSE TOLERANCE TEST 2023-01-17 18:11:59 Test Item Value Reference Range Interpretation Comme nts GLUC 3 HR (test code = 9013736241) 124 mg/dL 70-110 H Lab Interpretation (test code = 63744-0) Abnormal [facility] HR GLUCOSE TOLERANCE [id number] 16:30:25 Test Item Value Reference Range Interpretation Comments GLUC 2 HR (test code = 0927604635) 116 mg/dL 70-120 Lab Interpretation (test code = Normal 60437-1) [facility] [id number] 14:29:23 Test Item Value Reference Range Interpretation Comments GLU FASTNG (test code = 6278414879) 97 mg/dL 70-110 Lab Interpretation (test code = Normal 01056-9) [facility] URINALYSIS W/O SPECIFIC [id number] 15:32:00 Test Item Value Reference Range Interpretation Comments POCT PH U (test code = 3254) N/A 5-8 POCT U LEUK EST (test code = N/A Negative - Negative 3263) POCT U NIT (test code = 3262) N/A Negative - Negative POCT U PROT (test code = 3259) Negative Negative - Negative POCT U GLU (test code = 3256) Trace Negative - Negative POCT U KETONE (test code = 3258) N/A Negative - Negative POCT U BLD (test code = 3257) N/A Negative - Negative [facility] SPECIFIC [id number] 18:24:00 Test Item Value Reference Range Interpretation Comments POCT PH U (test code = 3254) n/a 5-8 POCT U LEUK EST (test code = n/a Negative - Negative 3263) POCT U NIT (test code = 3262) n/a Negative - Negative POCT U PROT (test code = 3259) negative Negative - Negative POCT U GLU (test code = 3256) negative Negative - Negative POCT U KETONE (test code = 3258) n/a Negative - Negative POCT U BLD (test code = 3257) n/a Negative - Negative [facility] W/O SPECIFIC [id number] 19:05:00 Test Item Value Reference Range Interpretation Comments POCT PH U (test code = 3254) 8 mg/dl 5-8 POCT U LEUK EST (test code = negative Negative - Negative 3263) POCT U NIT (test code = 3262) negative Negative - Negative POCT U PROT (test code = 3259) negative Negative - Negative POCT U GLU (test code = 3256) negative Negative - Negative POCT U KETONE (test code = 3258) negative Negative - Negative POCT U BLD (test code = 3257) negative Negative - Negative [facility] UR[facility] W/O SPECIFIC [id number] 19:47:00 Test Item Value Reference Range Interpretation Comments POCT PH U (test code = 3254) 5 mg/dl 5-8 POCT U LEUK EST (test code = negative Negative - Negative 3263) POCT U NIT (test code = 3262) negative Negative - Negative POCT U PROT (test code = 3259) trace Negative - Negative POCT U GLU (test code = 3256) negative Negative - Negative POCT U KETONE (test code = 3258) trace Negative - Negative POCT U BLD (test code = 3257) negative Negative - Negative [facility]AB[facility]H Confirmation (Lab Only)2022-10-13 04:09:13 Test Item Value Reference Range Interpretation Comments ABO & RH (test code O Positive Performe d at [facility] = 20) Laboratory Serv [facility] [place], [place] [address]Toll Free: [phone] A No. [id number] [facility] CampusType and Screen - ONCE [id number] 03:56:33 Test Item Value Reference Range Interpretation Comments ABO & RH (test code O Positive Performe d at [facility] = 20) Laboratory [facility] [place], [place] [address]Toll Free: [phone] A No. [id number] IAT (test code = Negative Performed a t [facility] 1185) Laboratory [facility] [place], [place] [address]Toll Free: [phone] A No. [id number] [facility] CampusCOMP. METABOLIC PANEL (28581)2022-10-13 03:22:02 Test Item Value Reference Range Interpretation Comments NA (test code = 133 mmol/L 135-145 L 5093909989) K (test code = 3.7 mmol/L 3.5-5.0 1775717076) CL (test code = 106 mmol/L 98-108 1471088700) CO2 TOTAL (test code = 22 mmol/L 23-31 L 3090696661) AGAP (test code = 5 2-16 7186398184) BUN (test code = 5 mg/dL 7-23 L 7136466243) GLUCOSE (test code = 84 mg/dL 70-110 9558193228) CREATININE (test code = 0.54 mg/dL 0.50-1.04 7934955577) TOTAL BILI (test code = 0.6 mg/dL 0.1-1.5 6741109275) CALCIUM (test code = 8.7 mg/dL 8.6-10.6 0322751424) T PROTEIN (test code = 6.8 g/dL 6.3-8.2 9673723203) ALBUMIN (test code = 3.6 g/dL 3.5-5.0 5654188767) ALK PHOS (test code = 101 U/L 34-122 7236577002) ALTv (test code = 24 U/L 5-35 1742-6) AST(SGOT) (test code = 22 U/L 13-40 2641982056) eGFR (test code = 130.8 mL/min/1.73m2 3310455465) FRANKLIN (test code = FRANKLIN) Association of Glomerular Filtration Rate (GFR) and Staging of Kidney Disease* + --+ --+ ------+| GFR (mL/min/1.73 m2) ?| With Kidney Damage ?| ?Without Kidney Damage+ --------+ --------+ +| ?>90 ?| ?Stage one ?| ? Normal ?+ ---+ ---+ -------+| ?60-89 ?| ?Stage two ?| ? Decreased GFR ? + --+ --+ ------+| ?30-59 ?| ?Stage three ?| ? Stage three ? + --+ --+ ------+| ?15-29 ?| ?Stage four ? | ? Stage four ?+ ---+ ---+ -------+| ?<15 (or dialysis) ? ?| ?Stage five ? | ? Stage five ?+ ---+ ---+ -------+ *Each stage assumes the associated GFR level has been in effect for at least three months. ?Stages 1 to 5, with or without kidney disease, indicate chronic kidney disease. Notes: Determination of stages one and two (with eGFR >59mL/min/1.73 m2) requires estimation of kidney damage for at least three months as defined by structural or functional abnormalities of the kidney, manifested by either:Pathological abnormalities or Markers of kidney damage (including abnormalities in the composition of the blood or urine or abnormalities in imaging tests). Lab Interpretation Abnormal (test code = 40805-0) [facility] WITH [id number] 03:10:04 Test Item Value Reference Range Interpretation Comments WBC (test code = 9.26 See_Comment [Automated 6690-2) message] The sy stem which generated this result transmitted reference range : 4.30 - 11.10 10*3/?L. The reference range was not used to interpret this result as normal/abnormal . RBC (test code = 4.12 See_Comment [Automated 789-8) message] The sy stem which generated this result transmitted reference range : 3.93 - 5.25 10*6/?L. The reference range was not used to interpret this result as normal/abnormal . HGB (test code = 12.3 g/dL 11.6-15.0 718-7) HCT (test code = 35.5 % 35.7-45.2 L 4544-3) MCV (test code = 86.2 fL 80.6-95.5 787-2) MCH (test code = 29.9 pg 25.9-32.8 785-6) MCHC (test code = 34.6 g/dL 31.6-35.1 786-4) RDW-SD (test code = 44.0 fL 39.0-49.9 51879-4) RDW-CV (test code = 14.0 % 12.0-15.5 788-0) PLT (test code = 238 See_Comment [Automated 777-3) message] The sy stem which generated this result transmitted reference range : 166 - 358 10*3/ ?L. The reference r danyelle was not used to interpret this result as normal/abnormal . MPV (test code = 10.9 fL 9.5-12.9 04267-1) NRBC/100 WBC (test 0.0 See_Comment [Automat ed code = 7345384807) message] The system which generated this result transmitted reference range : 0.0 - 10.0 /100 WBCs. The refer ence range was not u sed to interpret th is result as normal/abnormal . NRBC x10^3 (test code See_Comment [Auto mated = 5453417600) message] The s ystem which generated this result transmitted reference range : 10*3/?L. The reference range was not used to interpret this result as normal/abnormal . GRAN MAT (NEUT) % 62.5 % (test code = 770-8) IMM GRAN % (test code 0.40 % = 2956425689) LYMPH % (test code = 27.4 % 736-9) MONO % (test code = 6.8 % 5905-5) EOS % (test code = 2.5 % 713-8) BASO % (test code = 0.4 % 706-2) GRAN MAT x10^3(ANC) 5.78 10*3/uL 1.88-7.09 (test code = 6292642260) IMM GRAN x10^3 (test 0.04 10*3/uL 0.00-0.06 code = 2161588483) LYMPH x10^3 (test code 2.54 10*3/uL 1.32-3.29 = 731-0) MONO x10^3 (test code 0.63 10*3/uL 0.33-0.92 = 742-7) EOS x10^3 (test code = 0.23 10*3/uL 0.03-0.39 711-2) BASO x10^3 (test code 0.04 10*3/uL 0.01-0.07 = 704-7) Lab Interpretation Abnormal (test code = 81042-6) [facility], THIRD [id number] 09:45:16 Test Item Value Reference Range Interpretation Comments TSH, THIRD 2.180 UIU/ML 0.400-4.100 UNLESS OTHERWI SE GENERATION (test INDICATED, ALL TESTING code = 2821) PERFORMED [facility], [facility] [address] [place] [address] DIRECTOR: BAKARI MELTON M.D. CLIA NUMBER [id number] CAP ACCREDITATION N O. [id number] HEMOGLOBIN [id number] 08:28:05 Test Item Value Reference Range Interpretation Comments HEMOGLOBIN A1c (test code = 98272) 5.7 % 4.2-5.6 H CBC W/AUTO DIFF WITH [id number] 07:50:55 Test Item Value Reference Range Interpretation [...] RBCS 0.00 K/UL 0.00-0.11 (test code = 11703) COMPREHENSIVE METABOLIC [id number] 05:42:59 Test Item Value Reference Range Interpretation Comments GLUCOSE (test code = 68 MG/DL 70-99 L 2216) BUN (test code = 9 MG/DL 6-20 2207) CREATININE (test 0.81 MG/DL 0.60-1.30 code = 2214) eGFR (2020 CKD-EPI) 99 ML/MIN/1.73 >60 (test code = 04928) CALC BUN/CREAT (test 11 RATIO 6-28 code = 2235) SODIUM (test code = 143 MEQ/L 311-624 9747) POTASSIUM (test code 4.2 MEQ/L 3.5-5.4 = [...] message] (test code = 2206) The syste Beeminder which generated this result transmit doroteo reference range : <=1.2. The refe rence range was not u sed to interpret th is result as normal/abnormal . ALKALINE PHOSPHATASE 154 U/L 40-114 H (test code = 2203) AST (test code = 18 U/L 9-40 2217) ALT (test code = 16 U/L 5-40 2218) LIPID [id number] 05:42:59 Test Item Value Reference Range Interpretation [...] MOREINFORMATION , SEE CLIENT ANNOUNCE MENT AT [email or web address] LDL/HDL 2.59 RATIO <3.22 (test code = 2238) PAP TEST, THINPREP, [id number] 17:32:45 Test Item Value Reference Range Interpretation Comments SOURCE: (test code = Cervical/Endo 8001) cervical SLIDES: (test code = 1 8011) LMP: (test code = 03/05/2022 8021) SPECIMEN ADEQUACY: (NOTE) Satisfac tory for (test code = 60920) evaluati on. Endocervical cells/transform ation zone component present. INTERPRETATION: LSIL/EPITH. A (test code = 68070) ABNORMALITY; -------- SEE BELOW ------- ---- EPITHE LIAL CELL ABNORMALIT Y Low Grade Squam ous Intraepithelial Lesion (LSIL) ------- ------- ------- ---- LUNCHEONETTE OPERATOR: Emil (test code = 8101) KATHRYN Vilchis(ASC P)[facility] PATHOLOGIST Dariusz London INTERPRETATION BY: (test code = 8122) LOCATION: (test code (NOTE) Specime ns processed at = [address]) [facility] [address], [address] [place] [address], Phone: , CLIA: [id number] interpreted at [facility], [address],Pathology Department [facility], [place] Set on [facility], [place] [address], Phone: , CLIA: [id number] CPT: (test code = (NOTE) 34594, 881 41 UNLESS 8140) OTHERWISE INDIC ATED, [...] as applicable. HPV HIGH RISK WITH GENOTYPE, [id number] 18:42:54 Test Item Value Reference Range Interpretation Comments HPV HIGH RISK INTERP POSITIVE NEGATIVE A (test code = 54906) HPV 16 (test code = POSITIVE A 52917) HPV 18 (test code = NEGATIVE 68189) HPV, HR, OTHER NEGATIVE Testing meth odology is GENOTYPES (test code real-ti me PCR utilizing = 47255) hydrolysis prob es with the [employer] Anjelica 4800 system. The héctor t individually [...] PERFORM ED [facility], I [place]. [address] [place] [id number] LABORATORY DIRE CTOR: BAKARI SANTILLAN M.D. PABLOIA NUMBER [id number] [place] [id number]"
[2023-02-01 12:04] LABS: SARS-CoV-2 Antigen Rapid Res Negative (Negative)
--- NOTE | 2023-02-01 12:13 | EDPHYS ---
Physician Documentation [facility] Name: Deniz Rivers Age: 32 yrs Sex: Female : 1990 Arrival Date: 02/01/2023 Time: 10:41 Bed DIS4 Private MD: JESSICA Physician Jl Deluca HPI: 02/01 10:56 This 32 yrs old Female presents to ER via Ambulatory with complaints of Sore jmm Throat. 10:56 Is a 32-year-old female the presents emerged part with complaints of cough, congestion, jmm sore throat with productive cough symptoms began approximately week ago but have worsened over the past 2 days. Denies any vomiting. Denies abdominal pain, denies vaginal bleeding.. Historical: - Allergies: 11:34 No Known Allergies; nj1 - PMHx: 11:34 Hx of preeclampsia; nj1 - PSHx: 11:34 None; nj1 - Immunization history:: Client reports receiving the 2nd dose of the Covid vaccine. - Social history:: Smoking status: Patient denies any tobacco usage or history of. ROS: 10:56 Constitutional: Positive for body aches. jmm 10:56 ENT: Positive for sore throat. 10:56 Respiratory: Positive for cough. 10:56 All other systems are negative. Exam: 10:56 Constitutional: This is a well developed, well nourished patient who is awake, alert, jmm and in no acute distress. Head/Face: atraumatic. Eyes: EOMI, no conjunctival erythema appreciated 10:56 Neck: Trachea midline, Supple Chest/axilla: Normal chest wall appearance and motion. Cardiovascular: Regular rate and rhythm. No edema appreciated Respiratory: Normal respirations, no respiratory distress appreciated Abdomen/GI: Non distended Back: Normal ROM Skin: General appearance color normal MS/ Extremity: Moves all extremities, no obvious deformities appreciated, no edema noted to the lower extremities Neuro: Awake and alert Psych: Behavior is normal, Mood is normal, Patient is cooperative and pleasant 10:56 ENT: Posterior pharynx: erythema, that is moderate. Vital Signs: 11:29 BP 129 / 87; Pulse 101; Resp 18; Temp 98.4(O); Pulse Ox 100% ; Weight 83.01 kg; Height nj1 5 ft. 3 in. ; Pain 6/10; 11:29 Body Mass Index 32.42 (83.01 kg, 160.02 cm) nj1 11:29 Pain Scale: Adult nj1 MDM: 10:56 Patient medically screened. [facility] 14:10 Differential diagnosis: pharyngitis, upper respiratory infection, viral syndrome. Data [facility] reviewed: vital signs, nurses notes, lab test result(s). I considered the following discharge prescriptions or medication management in the emergency department. Counseling: I had a detailed discussion with the patient and/or guardian regarding: the historical points, exam findings, and any diagnostic results supporting the discharge/admit diagnosis, lab results, the need for outpatient follow up, to return to the emergency department if symptoms worsen or persist or if there are any questions or concerns that arise at home. ED course: Patient is alert nontoxic in appearance in the ED. Advised follow-up with her [employer]ING ENG[employer]ER. Otherwise given strict return precautions. Patient understood and agrees plan of care. 02/01 10:55 Order name: Strep [facility] 02/01 10:55 Order name: Influenza Screen (a \T\ B); Complete Time: 12:12 [facility] 02/01 10:55 Order name: SARS RAPID; Complete Time: 12:12 [facility] 02/01 12:08 Order name: Throat Culture EDMS Administered Medications: No medications were administered Disposition Summary: 02/01/23 12:12 Discharge Ordered Location: Home [facility] Condition: Stable [facility] Diagnosis - Acute pharyngitis, unspecified [facility] Followup: [facility] - With: Private Physician - When: 1 - 2 days - Reason: Recheck today's complaints, Continuance of care, Re-evaluation by your physician Discharge Instructions: - Discharge Summary Sheet [facility] - Pharyngitis [facility] Forms: - Medication Reconciliation Form [facility] - Thank You Letter [facility] - Antibiotic Education [facility] - Prescription Opioid Use [facility] Prescriptions: - cefdinir 300 mg Oral capsule - take 1 capsule by ORAL route every 12 hours for 10 days; 20 capsule; Refills: [facility] 0, Product Selection Permitted - promethazine-DM 6.25-15 mg/5 mL Oral syrup - administer 10 milliliter by ORAL route every 6 hours As needed as needed for m cough; 200 milliliter; Refills: 0, Product Selection Permitted - Augmentin 875-125 mg Oral Tablet - take 1 tablet by ORAL route every 12 hours for 10 days; 20 tablet; Refills: 0, jmm Product Selection Permitted Signatures: Dispatcher [employer] EDSteve Hassan PA PA jmm Jaco, Norma RN RN nj1 Corrections: (The following items were deleted from the chart) 11:35 11:34 PMHx: pre eclampsia; nj1 nj1
--- NOTE | 2023-02-01 12:13 | ER ---
Nurse's Notes [facility] Name: Deniz Rivers Age: 32 yrs Sex: Female : 1990 Arrival Date: 02/01/2023 Time: 10:41 Bed DIS4 Private MD: Diagnosis: Acute pharyngitis, unspecified Presentation: 02/01 11:29 Chief complaint: Patient states: Sore throat for 2 days, getting worse. Slight cough nj1 with greenish/yellowish phlegm. 32 wks . Coronavirus screen: Vaccine status: Patient reports receiving the 2nd dose of the covid vaccine. Ebola Screen: Patient denies travel to an Ebola-affected area in the 21 days before illness onset. Initial Sepsis Screen: Does the patient meet any 2 criteria? HR > 90 bpm. No. Patient's initial sepsis screen is negative. Does the patient have a suspected source of infection? No. Patient's initial sepsis screen is negative. Risk Assessment: Do you want to hurt yourself or someone else? Patient reports no desire to harm self or others. Onset of symptoms was January 30, 2023. 11:29 Method Of Arrival: Ambulatory [facility] 11:29 Acuity: ANISHA 4 nj1 Historical: - Allergies: 11:34 No Known Allergies; nj1 - PMHx: 11:34 Hx of preeclampsia; nj1 - PSHx: 11:34 None; nj1 - Immunization history:: Client reports receiving the 2nd dose of the Covid vaccine. - Social history:: Smoking status: Patient denies any tobacco usage or history of. Screenin:36 [facility] ED Fall Risk Assessment (Adult) Score/Fall Risk Level 0 - 2 = Low Risk hb Oriented to surroundings, Maintained a safe environment. Abuse screen: Denies threats or abuse. Denies injuries from another. Nutritional screening: No deficits noted. Tuberculosis screening: No symptoms or risk factors identified. Assessment: 12:36 General: Appears in no apparent distress. Behavior is calm, cooperative. Pain: Pain hb currently is 6 out of 10 on a pain scale. Neuro: Level of Consciousness is awake, alert, obeys commands, Oriented to person, place, time, situation. Cardiovascular: Patient's skin is warm and dry. Respiratory: Respiratory effort is even, unlabored, Respiratory pattern is regular, symmetrical. EENT: Reports pain since throat. Vital Signs: 11:29 BP 129 / 87; Pulse 101; Resp 18; Temp 98.4(O); Pulse Ox 100% ; Weight 83.01 kg; Height nj1 5 ft. 3 in. ; Pain 610; 11:29 Body Mass Index 32.42 (83.01 kg, 160.02 cm) [facility] 11:29 Pain Scale: Adult [facility] ED Course: 10:42 Patient arrived in ED. am2 10:44 Steve Jones PA is PHCP. [facility] 10:44 Jl Deluca MD is Attending Physician. [facility] 11:09 SARS RAPID [facility] 11:09 Influenza Screen (a \T\ B) [facility] 11:09 Strep [facility] 11:33 Triage completed. [facility] 11:35 Arm band placed on right wrist. [facility] 12:35 Torri Orozco, RN is Primary Nurse. hb 12:36 No provider procedures requiring assistance completed. Patient did not have IV access hb during this emergency room visit. 12:36 Patient has correct armband on for positive identification. hb Administered Medications: No medications were administered Medication: 12:36 VIS not applicable for this client. hb Outcome: 12:12 Discharge ordered by MD. [facility] 12:36 Discharged to home ambulatory. hb 12:36 Condition: stable 12:36 Discharge instructions given to patient, Instructed on discharge instructions, follow up and referral plans. medication usage, Demonstrated understanding of instructions, follow-up care, medications, Prescriptions given X 1. 12:37 Patient left the ED. hb Signatures: Steve Jones PA PA [facility] Torri Orozco, RN RN Uzma Bond am2 Marely Hernandez 6 Lindsay Duenas RN RN nj1 Corrections: (The following items were deleted from the chart) 11:35 11:34 PMHx: pre eclampsia; nh1 nh1
[2023-02-01 12:53] VITALS: BP 129/87; TEMP 98.4; O2SAT 100
== END 2023-02-01 12:37 | disposition home or self-care (01) ==
LOC: ER 10:41
DX: J02.9 Acute pharyngitis, unspecified (principal); Z20.822 Contact with and (suspected) exposure to COVID-19
CPT/HCPCS: 36415; 87070; 87081; 87804; 87811; 99283